=== PATIENT | male | born 1975 | race African-American/Black ===

== ENCOUNTER 2018-08-15 17:32 | Emergency (ER) | payer MEDICAID, OTHER ==
--- NOTE | 2018-08-15 18:15 | UC ---
UC General HPI - HPI Summary HPI Summary: 42 year old male presents with complaints of bilateral lower extremity edema and a wet, non-productive cough for past 5 days. States he has gained almost 20 lbs over since onset. Patient is poor historian and seems to be having some flight of thought. He does reports several hospitalizations in past but only gives a history of pancreatitis. Denies fever, chills, chest pain , palpitations, shortness of breath, abdominal pain, nausea, vomiting, or diaphoresis. - History of Current Complaint Chief Complaint: UCLowerExtremity Stated Complaint: BILATERAL FOOT/KNEE SWELLING Time Seen by Provider: 08/15/18 17:43 Hx Obtained From: Patient Pain Intensity: 6 - Allergy/Home Medications Allergies/Adverse Reactions: Allergies Allergy/AdvReac Type Severity Reaction Status Date / Time aspirin Allergy GI Upset Verified 08/15/18 17:42 NSAIDS (Non-Steroidal Allergy GI Upset Verified 08/15/18 17:42 Anti-Inflamma Home Medications: Home Medications NK [No Home Medications Reported] 08/15/18 [History Confirmed 08/15/18] PMH/Surg Hx/FS Hx/Imm Hx GI/ History: Other - Pancreatitis - Surgical History Surgical History: None - Family History Known Family History: Positive: Unknown - Social History Occupation: Employed Part-time Lives: Alone Alcohol Use: Rare Substance Use Type: None Smoking Status (MU): Former Smoker Review of Systems All Other Systems Reviewed And Are Negative: Yes Constitutional: Negative: Fever, Chills Respiratory: Positive: Cough. Negative: Shortness Of Breath Cardiovascular: Positive: Other - Bilateral lower extremity edema. Negative: Palpitations, Chest Pain Gastrointestinal: Negative: Abdominal Pain, Vomiting, Diarrhea, Nausea Genitourinary: Positive: Negative Musculoskeletal: Negative: Calf Tenderness Neurological: Positive: Negative Is Patient Immunocompromised?: No Physical Exam - Summary Physical Exam Summary: GENERAL APPEARANCE: Well developed, well nourished, alert and cooperative, and appears to be in no acute distress. NECK: Neck supple, non-tender. Bilateral JVD present. CARDIAC: Normal S1 and S2. No S3, S4 or murmurs. Rhythm is regular. Tachycardic. 2+ pitting bilateral lower extremity edema up to the level of the knees. No cyanosis or pallor. Extremities are warm and well perfused. Capillary refill is less than 2 seconds.Peripheral pulses intact. LUNGS: Clear to auscultation without rales, rhonchi, wheezing or diminished breath sounds. Wet, non-productive cough. ABDOMEN: Positive bowel sounds. Soft, nondistended, nontender. No guarding or rebound. No masses or hepatosplenomegally. MUSKULOSKELETAL: ROM intact to all extremities. No joint erythema or tenderness. Normal muscular development. Normal gait. SKIN: Skin normal color, texture and turgor with no lesions or eruptions. Triage Information Reviewed: Yes Vital Signs: Initial Vital Signs Temp 98.9 F 08/15/18 17:38 Pulse 135 08/15/18 17:38 Resp 18 08/15/18 17:38 BP 110/83 08/15/18 17:38 Pulse Ox 100 08/15/18 17:38 Vital Signs Reviewed: Yes Diagnostics - EKG Cardiac Rate: Tachycardia Cardiac Rhythm: Sinus: Normal Ectopy: : PVCs, PACs ST Segment: Normal EKG Comparison: Other - No previous available. Summary of EKG Findings: Sinus tachycardia with probably LVH and nonspecific T- wave changes in Lead I, V5, V6 Course/Dx - Course Course Of Treatment: 42 year old male presents with complaints of bilateral lower extremity edema and a wet, non-productive cough for past 5 days. States he has gained almost 20 lbs over since onset. Patient is poor historian and seems to be having some flight of thought. He does reports several hospitalizations in past but only gives a history of pancreatitis. Denies fever, chills, chest pain, palpitations, shortness of breath, abdominal pain, nausea, vomitng, or diaphoresis. Afebrile. He is tachycardic but vital signs otherwise stable. Exam reveals an adult male in no acute distress. Tachycardic with a normal S1 S2 without extra heart sounds. He has JVD as well as 2+ pitting edema of the lower extremities up to his bilateral knees. 12 lead EKG shows sinus tachycardia with probable LVH and nonspecific T wave changes. No old EKG available for comparison. I am recommending that the patient go to the the emergency room via EMS for further evalatuation. He is agreeable to this and was transferred to [facility] at his request via EMS. - Differential Dx - Multi-Symptom Differential Diagnoses: Other - GA, CHF, LVH - Diagnoses Provider Diagnosis: Bilateral lower extremity edema - Physician Notifications Discussed Patient Care With: Kurt Koenig Time Discussed With Above Provider: 18:25 Instructed by Provider To: MD Will See In ED Discharge - Sign-Out/Discharge Documenting (check all that apply): Patient Departure All imaging exams completed and their final reports reviewed: No Studies - Discharge Plan Condition: Guarded Disposition: TRANS HIGHER LVL OF CARE FAC Referrals: No Primary Care Phys,NOPCP [Primary Care Provider] - - Billing Disposition and Condition Condition: GUARDED Disposition: Trans Higher Lvl of Care Fac
[2018-08-15 18:31] VITALS: BP 112/76
== END 2018-08-15 18:28 | disposition short-term general hospital (02) ==
LOC: UCCORT 17:32
DX: R60.0 Localized edema (principal); R05 Cough; Z88.8 Allergy status to other drugs, medicaments and biological substances; Z87.891 Personal history of nicotine dependence
CPT/HCPCS: 93005; 99203; G0463

== ENCOUNTER 2018-08-15 19:20 | Inpatient (IN) | payer MEDICAID, OTHER ==
--- NOTE | 2018-08-15 20:00 | ED ---
Lower Extremity - HPI Summary HPI Summary: Patient is a 42 y/o M presenting to ED via EMS with complaints of pitting BLE edema and pain over the past week. He denies SOB, chest pain. Patient reports cough for the past three days. He denies PMHx of liver and kidney problems. No psychiatric problems, no alcohol, drug, cigarette usage. 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 Patient notes that he has not gone to doctor in 3 years, he lives alone. On triage, pain is rated 7/10, elevation is noted to alleviate Sx, nothing is noted to aggravate Sx. Home medications and allergies are reviewed. - History of Current Complaint Chief Complaint: EDExtremityLower Stated Complaint: SWELLING Time Seen by Provider: 08/15/18 19:48 Hx Obtained From: Patient Mechanism Of Injury: Other - no injury reported Onset of Pain: Days - 1 week ago, Prior to Arrival Onset/Duration: Weeks - 1 week Severity Currently: Severe - 7/10 Pain Intensity: 7 Pain Scale Used: 0-10 Numeric - 7/10 Timing: Constant, Lasting Weeks - 1 week Location: Is Discrete @ - BLE Associated Signs And Symptoms: Positive: Swelling - BLE Aggravating Factor(s): Other - nothing Alleviating Factor(s): Elevation - Allergies/Home Medications Allergies/Adverse Reactions: Allergies Allergy/AdvReac Type Severity Reaction Status Date / Time aspirin Allergy GI Upset Verified 08/15/18 17:42 NSAIDS (Non-Steroidal Allergy GI Upset Verified 08/15/18 17:42 Anti-Inflamma PMH/Surg Hx/FS Hx/Imm Hx Sensory History: Denies: Hx Legally Blind, Hx Deafness Opthamlomology History: Denies: Hx Legally Blind EENT History: Denies: Hx Deafness Infectious Disease History: No Infectious Disease History: Denies: Traveled Outside the [place] in Last 30 Days - Family History Known Family History: Negative: Hypertension, Diabetes - Social History Alcohol Use: Rare Substance Use Type: Reports: None Smoking Status (MU): Former Smoker Review of Systems Negative: Chest Pain Positive: Cough. Negative: Shortness Of Breath Positive: Edema - BLE , Other - BLE pain All Other Systems Reviewed And Are Negative: Yes Physical Exam - Summary Physical Exam Summary: Appearance: Well appearing, no pain distress Skin: warm, dry, reflects adequate perfusion Head/face: normal Eyes: EOMI, MELLISA ENT: normal Neck: supple, non-tender Respiratory: CTA, breath sounds present Cardiovascular: tachycardic, pulses symmetrical Abdomen: non-tender, soft Musculoskeletal: strength/ROM intact, bilateral pedal edema Neuro: normal, sensory motor intact, A&Ox3 Triage Information Reviewed: Yes Vital Signs On Initial Exam: Initial Vitals Temp Pulse Resp BP Pulse Ox 99.8 F 136 20 118/100 100 08/15/18 19:30 08/15/18 19:30 08/15/18 19:30 08/15/18 19:30 08/15/18 19:30 Vital Signs Reviewed: Yes Diagnostics - Vital Signs Vital Signs Temp Pulse Resp BP Pulse Ox 08/15/18 19:30 99.8 F 136 20 118/100 100 - Laboratory Result Diagrams: 08/15/18 21:00 08/15/18 21:00 Lab Statement: Any lab studies that have been ordered have been reviewed, and results considered in the medical decision making process. Lower Extremity Course/Dx - Course Course Of Treatment: Patient is a 42 y/o M presenting to ED via EMS with complaints of pitting BLE edema and pain over the past week. He denies SOB, chest pain. Patient reports cough for the past three days. He denies PMHx of liver and kidney problems. No psychiatric problems, no alcohol, drug, cigarette usage. On physical exam, tachycardia, bilateral pedeal edema is noted. Bloodwork was obtained. D-dimer 327, CTA chest to be ordered. Patient is signed out to Dr. Alicea pending CTA chest. - Diagnoses Provider Diagnoses: Dyspnea, Tachycardia Discharge - Sign-Out/Discharge Documenting (check all that apply): Sign-Out Patient Signing out patient TO: Jagdeep Alicea Receiving patient FROM: Jeff Carrasco - Discharge Plan Referrals: No Primary Care Phys,NOPCP [Primary Care Provider] - - Attestation Statements Document Initiated by Scribe: Yes Documenting Scribe: EVARISTO SANTAMARIA Provider For Whom Marge is Documenting (Include Credential): JEFF CRARASCO MD Scribe Attestation: EVARISTO Clark , scribed for JEFF CARRASCO MD on 08/15/18 at 2142. Scribe Documentation Reviewed: Yes Provider Attestation: The documentation as recorded by the EVARISTO chavez accurately reflects the service I personally performed and the decisions made by me, JEFF CARRASCO MD Status of Scribe Document: Viewed
[2018-08-15 21:11] LABS: ABS Basophils 0 10^3/ul (0-0.2); ABS Eosinophils 0 10^3/ul (0-0.6); ABS Lymphocytes 0.6 10^3/ul (1.0-4.8); ABS Monocytes 0.3 10^3/ul (0-0.8); ABS Neutrophils 2.2 10^3/ul (1.5-7.7); ABS Nucleated RBC 0 10^3/ul; Eosinophil % 0.7 %; Hematocrit 37 % (42-52); Lymphocyte % 20.3 %; Mean Corpuscular HGB Conc 33 g/dl (31-36); Mean Corpuscular Hemoglobin 27 pg (27-31); Mean Corpuscular Volume 83 fL (80-94); Mean Platelet Volume 7.7 fL (7.4-10.4); Nucleated Red Blood Cells % 0.1; Platelet Count 223 10^3/ul (150-450); Red Blood Count 4.41 10^6/ul (4.00-5.40); Red Cell Distribution Width 15 % (10.5-15); White Blood Count 3.2 10^3/ul (3.5-10.8)
[2018-08-15 21:22] LABS: Activated Partial Thrombo Time 33.2 seconds (26.0-36.3); INR 1.47 (0.77-1.02)
[2018-08-15 21:28] LABS: Albumin 3.7 g/dL (3.2-5.2); Albumin/Globulin Ratio 1.4 (1-3); BUN/Creatinine Ratio 13.6 (8-20); Calcium 8.8 mg/dL (8.6-10.3); EGFR African American 114.9 (>60); Globulin 2.7 g/dL (2-4); Potassium 3.9 mmol/L (3.5-5.0); Total Bilirubin 2.7 mg/dL (0.2-1.0); Total Protein 6.4 g/dL (6.4-8.9)
[2018-08-15 21:29] LABS: Troponin I 0.02 ng/mL (<0.04)
[2018-08-15] MEDS ORDERED: Furosemide IV* 10 MG/ML VIAL (40 MG) IV ONE (21:40)
[2018-08-15 21:57] LABS: TSH (Thyroid Stimulating Horm) 3.77 mcIU/mL (0.34-5.60)
[2018-08-15] MEDS ORDERED: Iohexol 350* (CONTRAST) 500 ML MDV IV ONE (22:35)
--- NOTE | 2018-08-15 22:41 | ED ---
Progress - Progress Note Progress Note: This patient was signed out from Dr. Koenig to Dr. Alicea, pending dispo, awaiting CTA chest. CTA Chest/Thorax: . No pulmonary emboli. 2. Dilated main pulmonary artery trunk measuring up to 3.3 cm in transverse diameter which may be due to pulmonary artery hypertension. 3. Marked cardiomegaly with evidence of right cardiac dysfunction. 4. Mild to moderate right pleural effusion with compressive atelectasis. 5. Multiple centrilobular nodules in the superior segment of the right lower lobe which may be due to infectious etiology. Upon re-eval at 0249, the patient's condition was unchanged. Consulted Dr. Claros at 0254 about the patient's case and accepts the patient for admission. The patient will be admitted to Dr. Cedeno with a dx of pulmonary hypertension. Patient understands and is agreeable with this plan. Course/Dx - Course Course Of Treatment: Patient is a 42 y/o M presenting to ED via EMS with complaints of pitting BLE edema and pain over the past week. He denies SOB, chest pain. Patient reports cough for the past three days. He denies PMHx of liver and kidney problems. No psychiatric problems, no alcohol, drug, cigarette usage. On physical exam, tachycardia, bilateral pedeal edema is noted. Bloodwork was obtained. D-dimer 327, CTA chest to be ordered. Patient is signed out to Dr. Alicea pending CTA chest. - Diagnoses Provider Diagnoses: Pulmonary hypertension Discharge - Sign-Out/Discharge Documenting (check all that apply): Patient Departure - admit - Discharge Plan Condition: Stable Disposition: ADMITTED TO [facility] - Billing Disposition and Condition Condition: STABLE Disposition: Admitted to [facility] - Attestation Statements Document Initiated by Marge: Yes Documenting Scribe: Ethan Cote Provider For Whom Marge is Documenting (Include Credential): Jagdeep Alicea MD Scribe Attestation: Ethan Clark, scribed for Jagdeep Alicea MD on 08/16/18 at 0642. Scribe Documentation Reviewed: Yes Provider Attestation: The documentation as recorded by the Ethan chavez accurately reflects the service I personally performed and the decisions made by me, Jagdeep Alicea MD Status of Scribe Document: Viewed
[2018-08-16] MEDS ORDERED: Al Hydrox/Mg Hydrox/Simet LIQ* 30 ML UDC PO PRN (03:35)
[2018-08-16] MEDS ORDERED: Acetaminophen TAB* 325 MG PO PRN (03:35)
[2018-08-16] MEDS ORDERED: Ondansetron INJ* 2 MG/ML VIAL IV PRN (03:35)
[2018-08-16 05:49] LABS: ABS Basophils 0 10^3/ul (0-0.2); ABS Eosinophils 0 10^3/ul (0-0.6); ABS Lymphocytes 0.6 10^3/ul (1.0-4.8); ABS Monocytes 0.4 10^3/ul (0-0.8); ABS Neutrophils 2.5 10^3/ul (1.5-7.7); ABS Nucleated RBC 0 10^3/ul; Eosinophil % 0.2 %; Hematocrit 33 % (42-52); Hemoglobin 11.2 g/dl (14.0-18.0); Lymphocyte % 17.7 %; Mean Corpuscular HGB Conc 34 g/dl (31-36); Mean Corpuscular Hemoglobin 28 pg (27-31); Mean Corpuscular Volume 82 fL (80-94); Mean Platelet Volume 7.6 fL (7.4-10.4); Nucleated Red Blood Cells % 0.1; Platelet Count 205 10^3/ul (150-450); Red Blood Count 4.01 10^6/ul (4.00-5.40); Red Cell Distribution Width 16 % (10.5-15); White Blood Count 3.5 10^3/ul (3.5-10.8)
[2018-08-16] MEDS ORDERED: Benzonatate CAP* 100 MG PO PRN (05:51)
[2018-08-16 05:53] LABS: INR 1.56 (0.77-1.02)
[2018-08-16 06:09] LABS: Albumin 3.2 g/dL (3.2-5.2); Albumin/Globulin Ratio 1.3 (1-3); BUN/Creatinine Ratio 11.3 (8-20); C Reactive Protein 10.76 mg/L (<8.01); Calcium 8.7 mg/dL (8.6-10.3); EGFR African American 102.7 (>60); EGFR Non-African American 84.9 (>60); Globulin 2.5 g/dL (2-4); HDL Cholesterol 27.1 mg/dL; Magnesium 1.6 mg/dL (1.9-2.7); Potassium 3.7 mmol/L (3.5-5.0); Total Bilirubin 2.7 mg/dL (0.2-1.0); Total Protein 5.7 g/dL (6.4-8.9)
[2018-08-16] MEDS: Furosemide IV* 10 MG/ML VIAL (40 MG) IV SCH (08:00)
--- NOTE | 2018-08-16 09:58 | ECHO ---
Patient: TYRONE CHAUDHARY [facility] Rec#: [id number] : 1975 Date: 08/16/2018 Age: 42y Height: 180 cm / 70.9 in Weight: 79.4 kg / 175.0 lbs Sex: M BSA: 1.99 Room#: 434 Admit Date#: 08/16/2018 Type: Inpatient Referring: Rae Cedeno Reading: Boris Robledo MD Log Processor Operator: Alondra Mccollum RD Transthoracic Echocardiogram Indication: Congestive heart failure BP: 122/68 HR: 127 Rhythm: Tachycardia Findings History: Pulmonary hypertension. Technical Comments: The study quality is good. Completed at 0905. Left Ventricle: The left ventricular size is moderate to severely dilated. There is no left ventricular hypertrophy. Increased trabeculation of the LV myocardium There is diffuse global hypokinesis of the left ventricle. There is severely decreased left ventricular systolic function. The estimated ejection fraction is less than 20%. Abnormal left ventricular diastolic function is observed. Left Atrium: The left atrium is severely dilated. Right Ventricle: Moderator Band present. The right ventricle is moderately dilated. The right ventricular global systolic function is moderately reduced. Right Atrium: The right atrial cavity size is severely dilated. Aortic Valve: The aortic valve is trileaflet. There is no evidence of aortic valve thickening. There is a trace of aortic regurgitation. There is no evidence of aortic stenosis. Mitral Valve: The mitral valve leaflets are mildly thickened. There is moderate to severe mitral regurgitation. The mitral regurgitant jet is centrally directed. There is no evidence of mitral stenosis. Tricuspid Valve: The tricuspid valve leaflets are mildly thickened. There is moderate to severe tricuspid regurgitation. The right ventricular systolic pressure is estimated at 51 mmHg. There is evidence of moderate pulmonary hypertension. There is no tricuspid stenosis. Pulmonic Valve: The pulmonic valve appears normal. There is trace to mild pulmonic regurgitation. There is no pulmonic stenosis. Pericardium: A trivial pericardial effusion is visualized. Aorta: There is mild dilatation of the ascending aorta. There is no dilatation of the aortic arch. There is moderate dilatation of the aortic root. Pulmonary Artery: The main pulmonary artery appears normal. Venous: The inferior vena cava is dilated. There is less than 50% respiratory change in the inferior vena cava dimension. Summary: There was not any prior study for comparison. Conclusions There is no left ventricular hypertrophy. There is diffuse global hypokinesis of the left ventricle. There is severely decreased left ventricular systolic function. The estimated ejection fraction is less than 20%. The right ventricular global systolic function is moderately reduced. There is a trace of aortic regurgitation. There is moderate to severe mitral regurgitation. The mitral regurgitant jet is centrally directed. There is moderate to severe tricuspid regurgitation. The right ventricular systolic pressure is estimated at 51 mmHg. There is evidence of moderate pulmonary hypertension. A trivial pericardial effusion is visualized. report called to Dr Dunne Measurements Name Value Normal Range RVIDd (AP) 2D 3.9 cm (0.9 - 2.6) RVDdMajor (2D) 5.3 cm (2.2 - 4.4) RAd ISD 4CH 6.8 cm (3.4 - 4.9) RA (A4C)W 6.7 cm (2.9 - 4.6) IVSd (2D) 0.8 cm (0.6 - 1) LVPWd (2D) 0.8 cm (0.6 - 1) LVIDd (2D) 6.9 cm (3.6 - 5.4) LVIDs (2D) 6.1 cm - LV FS (2D) 11 % (25 - 45) Aortic Annulus 2 cm (1.4 - 2.6) Ao root diameter (2D) 4.3 cm (2.1 - 3.5) Ascending Ao 3.5 cm (2.1 - 3.4) Aortic arch 2.2 cm (1.8 - 3.4) LA dimension (AP) 2D 5.7 cm (2.3 - 3.8) LAd ISD 4CH 7.9 cm (2.9 - 5.3) LA ISD 4CH W 5.8 cm (2.5 - 4.5) Name Value Normal Range LA ESV BP (A/L) index 89 ml/m2 - Name Value Normal Range MV E-wave Vmax 0.9 m/sec - MV deceleration time 121 msec - MV A-wave Vmax 0.6 m/sec - MV E:A ratio 1.5 ratio - LV septal e' Vmax 0.05 m/sec - LV lateral e' Vmax 0.08 m/sec - LV E:e' septal ratio 18 ratio - LV E:e' lateral ratio 11.3 ratio - Name Value Normal Range AV Vmax 0.7 m/sec - AV VTI 9.5 cm - AV peak gradient 2 mmHg - AV mean gradient 1 mmHg - LVOT Vmax 0.6 m/sec - LVOT VTI 8.3 cm - LVOT peak gradient 2 mmHg - LVOT mean gradient 1 mmHg - COURTNEY Vmax 0.6 m/sec - Name Value Normal Range MR Vmax 4.5 m/sec - MR VTI 102 cm - MR flow (PISA) 118.6 ml/sec - MR ERO 0.26 cm2 - MR PISA radius 0.7 cm - MR alias Vmax 38.5 cm/sec - Name Value Normal Range TR Vmax 3 m/sec - TR peak gradient 36 mmHg - RAP 15 mmHg - RVSP 51 mmHg - IVC diameter 2.5 cm - Name Value Normal Range PV Vmax 0.6 m/sec - PV peak gradient 1 mmHg -
--- NOTE | 2018-08-16 10:04 | HP ---
HISTORY AND PHYSICAL: DATE OF ADMISSION: 08/16/18 TIME OF EVALUATION: 0300 PRIMARY CARE PHYSICIAN: The patient does not have a primary care physician. CHIEF COMPLAINT.: Lower extremity edema. HISTORY OF PRESENT ILLNESS: This is a 42-year-old male with an unremarkable past medical history, who initially presented to Urgent Care yesterday evening for bilateral lower extremity swelling, who was sent to the emergency room for concern for new onset congestive heart failure. The patient states he developed acute onset of lower extremity swelling a few days ago. He states he normally weighs 130 pounds. He took a nap after workup and woke up, was unable to get his shoes off and had significant lower extremity swelling bilaterally and had gained 20 pounds. He has noticed initially a dry cough over the past 2 to 3 days, now has become productive. He does have dyspnea on exertion. He becomes winded up and down the stairs and he has had some chest pain with coughing and congestion. No fevers at home. He has been nauseated. No vomiting or diarrhea. He states 4 years ago he had a significant episode of pancreatitis at [facility], where he was admitted. He denies any vomiting. No diarrhea. No abdominal pain. No fevers. No urinary symptoms. Otherwise review of systems is negative. As mentioned, the patient was referred from Urgent Care to dc. In the emergency room, the patient had labs and imaging. He was given 40 mg of Lasix and referred to the hospitalist service for further evaluation. PAST MEDICAL HISTORY: History of pancreatitis, requiring admission at [facility]. MEDICATIONS: None. No prescription, [id number]. ALLERGIES: Aspirin and NSAIDs cause intolerance with GI upset. FAMILY HISTORY: Unknown. 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 Very active and also working for [employer]. Normally works out routinely, has not lifted weights over the past 2 months. He quit smoking cigars and cigarettes in January 2018. At that time, he was smoking for about 3 years. His last drink was about 2 months ago. He was never a heavy drinker. No illicit drug use. REVIEW OF SYSTEMS: A 14-point review of systems as mentioned in the HPI, otherwise negative. PHYSICAL EXAMINATION GENERAL: No acute distress, resting comfortably, lying flat on the gurney. VITAL SIGNS: Temp is 99.8, pulse rate is 127, respiratory rate is 25, oxygen saturation is 100% on room air, blood pressure 112/80. HEENT: Head normocephalic. Pupils equal and reactive, anicteric. Oropharynx: Mucous membranes are moist. NECK: Supple. No lymphadenopathy. No nuchal rigidity. RESPIRATORY: Diminished breath sounds, bibasilar rales. No increased work of breathing. CARDIAC: Tachycardia, soft systolic murmur heard throughout. ABDOMEN: Soft, mild distention. No tenderness, round, or guarding. EXTREMITIES: +2 pitting edema of the lower extremities bilaterally. NEUROLOGIC: Alert and oriented x3. No gross focal neurologic deficits. LABORATORY DATA: White count 3.2, hemoglobin 12, hematocrit 37, platelets 223. INR is 1.47. D-dimer is 327. Sodium 133, potassium 3.9, chloride 102, bicarb 23. BUN 12, creatinine 0.88. Glucose 105. Bilirubin is 2.7. Troponin is 0.02 x2. BNP is greater than 1300. TSH is 3.77. RADIOGRAPHIC DATA: Chest CTA: No pulmonary emboli, dilated main pulmonary artery. Trunk measuring up to 3.3 cm in transverse diameter which may be due to pulmonary artery hypertension. Marked cardiomegaly with evidence of right cardiac dysfunction, mild to moderate right pleural effusion with compressive atelectasis, multiple centrilobular nodules in the superior segment of the right lower lobe, which may be due to infectious etiology. EKG: Sinus tachycardia with a rate of 132. EKG from Urgent Care shows nonspecific ST changes. ASSESSMENT: This is a 42-year-old male with an unremarkable past medical history, who presents to the emergency room with 20-pound weight gain, lower extremity edema, and dyspnea on exertion. 1. Lower extremity edema with dyspnea on exertion and CAT scan findings concerning for pulmonary artery hypertension and right heart failure. The patient's presentation is consistent with acute onset of decompensated heart failure. The etiology is unclear. It could be that he has underlying pulmonary artery hypertension. There were also centrilobular nodules that may be unrelated to his presentation. His INR and bilirubin are elevated, which is most likely from hepatic congestion from his right heart failure. Plan: We will admit him for observation for workup for this presentation. We will order an echocardiogram. He would likely benefit from a right and left heart cath. We will recommend followup with cardiology consultation once the echocardiogram is complete. We will repeat his labs in the morning, give another dose of Lasix in the morning. We will also request records from [facility] from his episode of pancreatitis to see if this is anything revealing as non-cardiogenic pulmonary edema can be related to pancreatitis; it may be worthwhile pursuing this etiology as well if no other obvious cause is contributing to his presentation. 2. FEN. Low-salt diet. 3. Deep venous thrombosis prophylaxis: Patient scores 1. We will encourage ambulation. 4. Code status: Full code. PATIENT TIME: Greater than 40 minutes was spent doing the history and physical , more than half the time spent in direct patient contact. [id number]/[facility] #: [id number] SHIELA
[2018-08-16] MEDS ORDERED: Magnesium Sulfate IV* 3 GM in NS 0.9% 100 ML* 100 ML IVPB ONE (11:05)
--- NOTE | 2018-08-16 11:30 | CONSULT ---
<Vianney Cain - Last Filed: 08/16/18 11:22> Subjective Date of Service: 08/16/18 - decompensated SHF, MR Interval History: I had the pleasure seeing Mr. Thurston today in consultation on behalf of Dr. Robledo. He is a pleasant 42 year old patient with known h/o severe LV dysfunction dating back to 2016. I personally reviewed medical records from that time he had presented to [facility] with c/o chest pain, coughing , sore throat and sob with minimal troponin elevation. He had a 102 degree fever and was found to have LVEF 20% ID and cardiology( Dr. Gonzalez) evaluated the patient and ultimately felt that he was suffering from myocarditis ( CK was 331 and CRP was 15.1) ID had ordered HIV testing however those results are not available to me. He was tachycardic due that admit as well as recently on 07/27/2018 however, he reports not being on medication and has not had longitudinal follow up with cardiology or primary care. Apparently on 07/27/2018 he was in [place] due to nausea and abdominal pain. EKG 07/27/2018 revealed Sinus tachycardia HR 120's he was sent home. Since last Wednesday he has been having progressive SOB, bilateral lower extremity edema, reported 20lbs weight gain and non productive cough with atypical chest pain. He denies dizziness, syncope, palpitations, orthopnea, PND, or syncope. He recently was hired at [employer] and just started work 2 days ago which is seasonal. 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 He denies recent infection, diarrhea , traveling outside of country or fever/chills. Family History: Unchanged from Admission - unknown states his parents are not active in his life. Social History: Unchanged from Admission - former cigar user states he consumed 3/week wuit January 2018. Drinks ETOH socially while playing pool. currently employed at [employer]. Denies illegal drug use. 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 He lives home alone and has no family. 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 Medications Active Medications: Acetaminophen (Tylenol Tab*) 650 mg PO Q4H PRN PRN Reason: FEVER/PAIN Al Hydrox/Mg Hydrox/Simethicone (Maalox Plus*) 30 ml PO Q6H PRN PRN Reason: INDIGESTION Benzonatate (Tessalon Cap*) 100 mg PO BID PRN PRN Reason: COUGH Last Admin: 08/16/18 07:59 Dose: 100 mg Carvedilol (Coreg Tab*) 3.125 mg PO BID NORY Furosemide (Lasix Iv*) 40 mg IV DAILY NORY Last Admin: 08/16/18 08:00 Dose: 40 mg Magnesium Sulfate 3 gm/ Sodium (Chloride) 106 mls @ 53 mls/hr IVPB ONCE ONE Stop: 08/16/18 13:04 Home Medications: NK [No Home Medications Reported] 08/15/18 [History Confirmed 08/16/18] Review of Systems - Measurements Intake and Output: Intake and Output Last 24 Hours 08/14/18 08/15/18 08/16/18 08/17/18 06:59 06:59 06:59 06:59 Intake Total 60 Output Total 200 Balance -140 Weight 171 lb Intake: Oral 60 Output: Urine 200 - Review of Systems Constitutional Symptoms: Positive: Weight Gain, Fatigue Thyroid: Positive: Weight Gain Pulmonary: Positive: Cough, Shortness of Breath Cardiology: Positive: Chest Pain, Shortness of Breath, Swelling of Ankles Gastroenterology: Positive: Nausea Genital - Urinary: Positive: Polyuria Review of Systems Statement: All other review of systems negative, unless stated above. Objective Vital Signs: Temp Pulse Resp BP Pulse Ox 99.4 F 124 20 105/72 100 08/16/18 07:46 08/16/18 07:46 08/16/18 07:46 08/16/18 07:46 08/16/18 07:46 Oxygen Devices in Use Now: None Appearance: well nourished, well kept. NAD A+O x3 cooperative with exam. Eyes: PERRLA - + jaundice noted in sclera. Ears/Nose/Mouth/Throat: NL Teeth, Lips, Gums, Mucous Membranes Moist Neck: NL Appearance and Movements; NL JVP, Trachea Midline, No Thyroid Enlargement, Masses Respiratory: Symmetrical Chest Expansion and Respiratory Effort Cardiovascular: - - Tachy S1, S2 regular rate and rhythm, + mitral murmur.+ gallop no rub Abdominal: NL Sounds; No Tenderness; No Distention, No Hepatosplenomegaly Extremities: - - pretibial edema noted in bilateral lower extremities. Skin: No Rash or Ulcers Neurological: Alert and Oriented x 3 Lines/Tubes/Other Access: Clean, Dry and Intact Peripheral IV Laboratory Results: 08/16/18 05:19 08/16/18 05:19 INR (Anticoag Therapy) 1.56 (0.77-1.02) H 08/16/18 05:19 APTT 33.2 seconds (26.0-36.3) 08/15/18 21:00 Total Bilirubin 2.70 mg/dL (0.2-1.0) H 08/16/18 05:19 AST 27 U/L (13-39) 08/16/18 05:19 ALT 21 U/L (7-52) 08/16/18 05:19 Alkaline Phosphatase 92 U/L (34-104) 08/16/18 05:19 B-Natriuretic Peptide > 1300 pg/mL (<=100) H 08/15/18 21:00 Total Protein 5.7 g/dL (6.4-8.9) L 08/16/18 05:19 Albumin 3.2 g/dL (3.2-5.2) 08/16/18 05:19 Globulin 2.5 g/dL (2-4) 08/16/18 05:19 Albumin/Globulin Ratio 1.3 (1-3) 08/16/18 05:19 Triglycerides 57 mg/dL 08/16/18 05:19 Cholesterol 81 mg/dL 08/16/18 05:19 LDL Cholesterol 43 mg/dL 08/16/18 05:19 HDL Cholesterol 27.1 mg/dL 08/16/18 05:19 TSH 3.77 mcIU/mL (0.34-5.60) 08/15/18 21:00 08/15/18 08/16/18 21:00 00:19 Troponin I 0.02 0.02 Laboratory Results - last 24 hr 08/15/18 08/15/18 08/15/18 21:00 21:00 21:00 WBC 3.2 L RBC 4.41 Hgb 12.0 L Hct 37 L MCV 83 MCH 27 MCHC 33 RDW 15 Plt Count 223 MPV 7.7 Neut % (Auto) 68.8 Lymph % (Auto) 20.3 [place] % (Auto) 9.6 Eos % (Auto) 0.7 Baso % (Auto) 0.6 Absolute Neuts (auto) 2.2 Absolute Lymphs (auto) 0.6 L Absolute Monos (auto) 0.3 Absolute Eos (auto) 0 Absolute Basos (auto) 0 Absolute Nucleated RBC 0 Nucleated RBC % 0.1 INR (Anticoag Therapy) APTT D-Dimer, Quantitative Sodium 133 L Potassium 3.9 Chloride 102 Carbon Dioxide 23 Anion Gap 8 BUN 12 Creatinine 0.88 Est GFR ( Amer) 114.9 Est GFR (Non-Af Amer) 95.0 BUN/Creatinine Ratio 13.6 Glucose 105 H Lactic Acid 1.8 Calcium 8.8 Magnesium Total Bilirubin 2.70 H AST 31 ALT 24 Alkaline Phosphatase 102 Troponin I 0.02 C-Reactive Protein B-Natriuretic Peptide Total Protein 6.4 Albumin 3.7 Globulin 2.7 Albumin/Globulin Ratio 1.4 Triglycerides Cholesterol LDL Cholesterol HDL Cholesterol TSH 3.77 08/15/18 08/15/18 08/16/18 21:00 21:00 00:19 WBC RBC Hgb Hct MCV MCH MCHC RDW Plt Count MPV Neut % (Auto) Lymph % (Auto) [place] % (Auto) Eos % (Auto) Baso % (Auto) Absolute Neuts (auto) Absolute Lymphs (auto) Absolute Monos (auto) Absolute Eos (auto) Absolute Basos (auto) Absolute Nucleated RBC Nucleated RBC % INR (Anticoag Therapy) 1.47 H APTT 33.2 D-Dimer, Quantitative 327 H Sodium Potassium Chloride Carbon Dioxide Anion Gap BUN Creatinine Est GFR ( Amer) Est GFR (Non-Af Amer) BUN/Creatinine Ratio Glucose Lactic Acid Calcium Magnesium Total Bilirubin AST ALT Alkaline Phosphatase Troponin I 0.02 C-Reactive Protein B-Natriuretic Peptide > 1300 H Total Protein Albumin Globulin Albumin/Globulin Ratio Triglycerides Cholesterol LDL Cholesterol HDL Cholesterol TSH 08/16/18 08/16/18 08/16/18 05:19 05:19 05:19 WBC 3.5 RBC 4.01 Hgb 11.2 L Hct 33 L MCV 82 MCH 28 MCHC 34 RDW 16 H Plt Count 205 MPV 7.6 Neut % (Auto) 69.6 Lymph % (Auto) 17.7 [place] % (Auto) 11.9 Eos % (Auto) 0.2 Baso % (Auto) 0.6 Absolute Neuts (auto) 2.5 Absolute Lymphs (auto) 0.6 L Absolute Monos (auto) 0.4 Absolute Eos (auto) 0 Absolute Basos (auto) 0 Absolute Nucleated RBC 0 Nucleated RBC % 0.1 INR (Anticoag Therapy) 1.56 H APTT D-Dimer, Quantitative Sodium 134 L Potassium 3.7 Chloride 103 Carbon Dioxide 23 Anion Gap 8 BUN 11 Creatinine 0.97 Est GFR ( Amer) 102.7 Est GFR (Non-Af Amer) 84.9 BUN/Creatinine Ratio 11.3 Glucose 118 H Lactic Acid Calcium 8.7 Magnesium 1.6 L Total Bilirubin 2.70 H AST 27 ALT 21 Alkaline Phosphatase 92 Troponin I C-Reactive Protein 10.76 H B-Natriuretic Peptide Total Protein 5.7 L Albumin 3.2 Globulin 2.5 Albumin/Globulin Ratio 1.3 Triglycerides 57 Cholesterol 81 LDL Cholesterol 43 HDL Cholesterol 27.1 TSH Diagnostic Imaging: Echo 08/15/2018; LVEF 20% with moderate to severe LV dilatation and increase trabeculation. severe biatrial dilatation, moderate to severe [place], AO 4.6cm. EKG Data: todays EKG; Sinus tachycardia rate 126 with tw depression in V5-6 Assessment/Plan #1 Decompensated SHF LVEF 20%; NYHA class 3 stage C. initially diagnosed in 2016 thought to be myocarditis however ck was only 331. He was started on HF medications however he has not had cardiac follow up and is no longer on medications. He presented with 5 day h/o 20lb weight gain, bilateral lower extremity edema and sob. Will continue Lasix 40mg IV daily, RX IV mag 3g once given mag level is 1.6. Will start Coreg 3.125mg PO BID. TFTs are normal, Troponin is normal thus will not order CK. Will r/o hemochromatosis. He has presented with sinus tachycardia every admit dating back to 2016 thus could be a compensatory mechanism given severe LV dysfuction however, LVEF did improve per Dr. Holcomb note in 2016 after HR was controlled. Will ask hospitalist to r/o HIV. Will consider ischemic eval tomorrow. Continue Na+ and fluid restriction with daily weights and daily BMP. Will order lifevest. #2 moderate to severe MR; decompensated on exam will continue IV lasix 40/day. No ACEI right now due to BP however will consider initiation of ACEI in the future if BP allows. #3 hypomagnesium; will replace with 3g IV x1 #4 Sinus tachycardia; will start coreg 3.125mg PO BID. This could be a compensatory mechanism due to above #1 however, patient needs better rate control which could improve LVEF. #5 disposition pending course. Attending: Boris Robledo <Boris Robledo - Last Filed: 08/16/18 18:05> Medications Active Medications: Acetaminophen (Tylenol Tab*) 650 mg PO Q4H PRN PRN Reason: FEVER/PAIN Al Hydrox/Mg Hydrox/Simethicone (Maalox Plus*) 30 ml PO Q6H PRN PRN Reason: INDIGESTION Benzonatate (Tessalon Cap*) 100 mg PO BID PRN PRN Reason: COUGH Last Admin: 08/16/18 07:59 Dose: 100 mg Carvedilol (Coreg Tab*) 3.125 mg PO BID [facility] Last Admin: 08/16/18 12:18 Dose: 3.125 mg Furosemide (Lasix Iv*) 40 mg IV DAILY [facility] Last Admin: 08/16/18 08:00 Dose: 40 mg Heparin Sodium (Porcine) (Heparin Vial(*)) 5,000 units SUBCUT Q8HR [facility] Home Medications: NK [No Home Medications Reported] 08/15/18 [History Confirmed 08/16/18] Review of Systems - Measurements Intake and Output: Intake and Output Last 24 Hours 08/14/18 08/15/18 08/16/18 08/17/18 06:59 06:59 06:59 06:59 Intake Total 60 1570 Output Total 200 Balance -140 1570 Weight 171 lb Intake: IV Fluids 15 Mag 3 grams 15 IVPB 115 Mag 3 grams 115 Oral 60 1440 Output: Urine 200 - Review of Systems Review of Systems Statement: All other review of systems negative, unless stated above. Objective Vital Signs: Temp Pulse Resp BP Pulse Ox 97.4 F 131 20 92/68 100 08/16/18 15:26 08/16/18 16:00 08/16/18 16:00 08/16/18 16:00 08/16/18 16:00 Laboratory Results: 08/16/18 05:19 08/16/18 05:19 INR (Anticoag Therapy) 1.56 (0.77-1.02) H 08/16/18 05:19 APTT 33.2 seconds (26.0-36.3) 08/15/18 21:00 Total Bilirubin 2.70 mg/dL (0.2-1.0) H 08/16/18 05:19 AST 27 U/L (13-39) 08/16/18 05:19 ALT 21 U/L (7-52) 08/16/18 05:19 Alkaline Phosphatase 92 U/L (34-104) 08/16/18 05:19 B-Natriuretic Peptide > 1300 pg/mL (<=100) H 08/15/18 21:00 Total Protein 5.7 g/dL (6.4-8.9) L 08/16/18 05:19 Albumin 3.2 g/dL (3.2-5.2) 08/16/18 05:19 Globulin 2.5 g/dL (2-4) 08/16/18 05:19 Albumin/Globulin Ratio 1.3 (1-3) 08/16/18 05:19 Triglycerides 57 mg/dL 08/16/18 05:19 Cholesterol 81 mg/dL 08/16/18 05:19 LDL Cholesterol 43 mg/dL 08/16/18 05:19 HDL Cholesterol 27.1 mg/dL 08/16/18 05:19 TSH 3.77 mcIU/mL (0.34-5.60) 08/15/18 21:00 08/15/18 08/16/18 21:00 00:19 Troponin I 0.02 0.02 Assessment/Plan Patient seen and examined. Chart reviewed Patient with history cardiomyopathy of unclear etiology. plan is for maximal medical therapy, Evaluate for hemochromatosis and HIV Possible ischemic evaluation
[2018-08-16 11:50] LABS: Ferritin 51.1 ng/mL (24-336)
--- NOTE | 2018-08-16 11:52 | PN ---
Subjective Date of Service: 08/16/18 Interval History: HOSPITALIST PROGRESS NOTE Patient seen and examined at bedside. Care reviewed and d/w Haley Richards RN. He states he's feeling better today. LE edema is going down, dyspnea is less intense, but "I'm peeing a lot". Family History: Unchanged from Admission Social History: Unchanged from Admission Past Medical History: Unchanged from Admission Objective Active Medications: Acetaminophen (Tylenol Tab*) 650 mg PO Q4H PRN PRN Reason: FEVER/PAIN Al Hydrox/Mg Hydrox/Simethicone (Maalox Plus*) 30 ml PO Q6H PRN PRN Reason: INDIGESTION Benzonatate (Tessalon Cap*) 100 mg PO BID PRN PRN Reason: COUGH Last Admin: 08/16/18 07:59 Dose: 100 mg Carvedilol (Coreg Tab*) 3.125 mg PO BID NORY Furosemide (Lasix Iv*) 40 mg IV DAILY NORY Last Admin: 08/16/18 08:00 Dose: 40 mg Magnesium Sulfate 3 gm/ Sodium (Chloride) 106 mls @ 53 mls/hr IVPB ONCE ONE Stop: 08/16/18 13:04 Vital Signs - 8 hr 08/16/18 08/16/18 08/16/18 04:14 04:37 07:46 Temperature 99.5 F 98.1 F 99.4 F Pulse Rate 133 129 124 Respiratory 18 26 20 Rate Blood Pressure 113/76 122/68 105/72 (mmHg) O2 Sat by Pulse 100 97 100 Oximetry Oxygen Devices in Use Now: None Appearance: Young gentleman sitting up in bed in NAD. Eyes: No Scleral Icterus Ears/Nose/Mouth/Throat: Mucous Membranes Moist Neck: Trachea Midline Respiratory: Symmetrical Chest Expansion and Respiratory Effort, - - BS+ bilaterally with bibasilar crackles Cardiovascular: RRR - Normal S1 and S2, tachycardic Abdominal: NL Sounds; No Tenderness; No Distention Extremities: - - Severe bilateral LE pitting edema Neurological: Alert and Oriented x 3, NL Muscle Strength and Tone Result Diagrams: 08/16/18 05:19 08/16/18 05:19 Assess/Plan/Problems-Billing Assessment: Mr Thurston is a 42yo M with PMH of pancreatitis, who presented to ED with c/o dyspnea and LE edema, found to have new onset CHF. - Patient Problems (1) CHF (congestive heart failure) Comment: - Patient has new onset CHF, with signs of Pulm HTN and RV failure. - Awaiting echo. - Continue diuresis. - Cradiology consult requested. (2) Increased bilirubin level Comment: - Likely secondary to congestive hepatopathy. (3) DVT prophylaxis Comment: - SQ heparin. (4) Full code status Status and Disposition: Change to inpatient to continue cardiac w/u and management.
[2018-08-16] MEDS: Carvedilol TAB* 3.125 MG PO SCH ×2 (12:18→22:57)
[2018-08-16] MEDS ORDERED: Metoprolol Tartrate IV* 1 MG/ML 5 ML VIAL IV PRN (22:13)
[2018-08-16] MEDS: Heparin VIAL(*) 5000 UNITS/ML VIAL (FIVE THOUSAND) SUBCUT SCH (22:57)
--- NOTE | 2018-08-16 23:01 | PN ---
Progress Note - Progress Note Date of Service: 08/16/18 Note: Patient refusing Coreg and IV lopressor. Per RN appears paranoid. Stating he is leaving tomorrow. Consider psych/mental health evaluation. Capacity evaluation as well.
[2018-08-17] MEDS: Heparin VIAL(*) 5000 UNITS/ML VIAL (FIVE THOUSAND) SUBCUT SCH ×3 (05:46→23:15)
[2018-08-17 06:28] LABS: BUN/Creatinine Ratio 16.2 (8-20); Calcium 8.8 mg/dL (8.6-10.3); EGFR African American 100.3 (>60); EGFR Non-African American 82.9 (>60); Potassium 4.1 mmol/L (3.5-5.0)
--- NOTE | 2018-08-17 08:19 | PN ---
Hospitalist Progress Note Date of Service: 08/17/18 Called by RN because patient wants to leave AMA. Evaluated at bedside with Jamie Thompson RN. He states he feels dehydrated and has refused multiple medications because he doesn't like the way they make him feel. Took just one dose of Coreg and states his "mouth and eyes were dry" and he is not going to take medications that make him uncomfortable. I explained he has cardiomyopathy with an EF <20% and that normal is 65%; he's at great risk for sudden , and needs further testing, medications, and a Life Vest before leaving the hospital. He does not appear to have insight in to the severity of his disease. He insists he needs to leave the hospital to move from his apartment as his landlord is calling him and leaving many messages. His plan is to go move out and then return to continue his evaluation and treatment. I explained he cannot perform that kind of exertion due to his heart disease and he tells me he's "fine to do it" as he was working the day before admission. I brought to his attention his symptoms, including his 30lbs weight gain, and he tells me he's feeling much better now. He continues to make incongruent statements, and got upset with me when I pointed his improvement is due to medications, but if he refuses to take his meds, he's going to get worse again. I also asked what would he do if he felt poorly while moving out of the apartment or if he had an emergency before returning to the hospital and he could not give a plan (like calling 911). When I brought up the fact he had been diagnosed with cardiomyopathy in 2016 at [facility] he tells me it was "just a chest cold" when in fact his EF was 25%. He did not take the medications prescribed at that time either. It is my conclusion the patient has no insight in to the severity of his diagnosis of severe cardiomyopathy, does not understand his high risk of sudden , and is unable to verbalize alternative plans to manage his condition. I believe he does not have capacity to sign out AMA. Will request Psych consult for capacity evaluation.
[2018-08-17 08:44] LABS: % Iron Saturation 6 % (15-55); Iron 28 ug/dL (50-212); Total Iron Binding Capacity 462 mcg/dL (250-450); Transferrin 330 mg/dL (203-362)
--- NOTE | 2018-08-17 10:10 | PN ---
<Vianney Cain - Last Filed: 08/17/18 10:01> Subjective Date of Service: 08/17/18 - decompensated SHF, MR Interval History: I had the pleasure seeing Mr. Thurston today in follow up. He states yesterday he developed dry itchy eyes thus felt that Coreg was causing these symptoms and has refused to take further doses. He denies chest pain, palpitations, sensation of heart racing although HR on telemetry 120-130's. He reports good urinary output. denies diarrhea, fever or chills. edema continues to improve. Medications Active Medications: Acetaminophen (Tylenol Tab*) 650 mg PO Q4H PRN PRN Reason: FEVER/PAIN Al Hydrox/Mg Hydrox/Simethicone (Maalox Plus*) 30 ml PO Q6H PRN PRN Reason: INDIGESTION Benzonatate (Tessalon Cap*) 100 mg PO BID PRN PRN Reason: COUGH Last Admin: 08/16/18 07:59 Dose: 100 mg Carvedilol (Coreg Tab*) 3.125 mg PO BID [facility] Last Admin: 08/16/18 22:57 Dose: Not Given Furosemide (Lasix Iv*) 40 mg IV DAILY [facility] Last Admin: 08/16/18 08:00 Dose: 40 mg Heparin Sodium (Porcine) (Heparin Vial(*)) 5,000 units SUBCUT Q8HR [facility] Last Admin: 08/17/18 05:46 Dose: Not Given Metoprolol Tartrate (Lopressor Iv*) 5 mg IV Q6H PRN PRN Reason: HEART RATE/PULSE Objective Vital Signs: Temp Pulse Resp BP Pulse Ox 98.6 F 128 22 105/77 100 08/17/18 06:05 08/17/18 03:14 08/17/18 08:00 08/17/18 03:14 08/17/18 03:14 Oxygen Devices in Use Now: None, Nasal Cannula Appearance: well nourished, well kept. NAD A+O x3 cooperative with exam. Eyes: PERRLA - + jaundice noted in sclera. Ears/Nose/Mouth/Throat: NL Teeth, Lips, Gums, Mucous Membranes Moist Neck: NL Appearance and Movements; NL JVP, Trachea Midline, No Thyroid Enlargement, Masses Respiratory: Symmetrical Chest Expansion and Respiratory Effort Cardiovascular: - - Tachy S1, S2 regular rate and rhythm, + mitral murmur.+ gallop no rub Abdominal: NL Sounds; No Tenderness; No Distention, No Hepatosplenomegaly Extremities: - - pretibial edema noted in bilateral lower extremities. Skin: No Rash or Ulcers Neurological: Alert and Oriented x 3 Lines/Tubes/Other Access: Clean, Dry and Intact Peripheral IV Laboratory Results: 08/16/18 05:19 08/17/18 05:11 INR (Anticoag Therapy) 1.56 (0.77-1.02) H 08/16/18 05:19 APTT 33.2 seconds (26.0-36.3) 08/15/18 21:00 Total Bilirubin 2.70 mg/dL (0.2-1.0) H 08/16/18 05:19 AST 27 U/L (13-39) 08/16/18 05:19 ALT 21 U/L (7-52) 08/16/18 05:19 Alkaline Phosphatase 92 U/L (34-104) 08/16/18 05:19 B-Natriuretic Peptide > 1300 pg/mL (<=100) H 08/15/18 21:00 Total Protein 5.7 g/dL (6.4-8.9) L 08/16/18 05:19 Albumin 3.2 g/dL (3.2-5.2) 08/16/18 05:19 Globulin 2.5 g/dL (2-4) 08/16/18 05:19 Albumin/Globulin Ratio 1.3 (1-3) 08/16/18 05:19 Triglycerides 57 mg/dL 08/16/18 05:19 Cholesterol 81 mg/dL 08/16/18 05:19 LDL Cholesterol 43 mg/dL 08/16/18 05:19 HDL Cholesterol 27.1 mg/dL 08/16/18 05:19 TSH 3.77 mcIU/mL (0.34-5.60) 08/15/18 21:00 08/15/18 08/16/18 21:00 00:19 Troponin I 0.02 0.02 Laboratory Results - last 24 hr 08/16/18 08/16/18 08/17/18 05:19 05:19 05:07 Sodium Potassium Chloride Carbon Dioxide Anion Gap BUN Creatinine Est GFR ( Amer) Est GFR (Non-Af Amer) BUN/Creatinine Ratio Glucose Calcium Magnesium Iron 28 L TIBC 462 H % Saturation 6 L Unsat Iron Binding < 447 Transferrin 332 330 Ferritin 51.1 HIV 1&2 Antibody Nonreactive 08/17/18 05:11 Sodium 134 L Potassium 4.1 Chloride 100 L Carbon Dioxide 22 Anion Gap 12 H BUN 16 Creatinine 0.99 Est GFR ( Amer) 100.3 Est GFR (Non-Af Amer) 82.9 BUN/Creatinine Ratio 16.2 Glucose 110 H Calcium 8.8 Magnesium 2.0 Iron TIBC % Saturation Unsat Iron Binding Transferrin Ferritin HIV 1&2 Antibody Diagnostic Imaging: Echo 08/15/2018; LVEF 20% with moderate to severe LV dilatation and increase trabeculation. severe biatrial dilatation, moderate to severe DC, AO 4.6cm. EKG Data: 08/16/2018; Sinus tachycardia rate 126 with tw depression in V5-6 Telemetry reviewed: Sinus tachycardia rate 130's rare PVC no VT Assessment/Plan #1 Severe LV dysfunction of unclear etiology dating back to 2015; LVEF <20%. NYHA class 3 stage C. decompensated although bilateral pretibial edema continues to improve with IV lasix 40mg day. Patient refused Coreg this morning due to c/o dry itchy eyes after dose last night. I educated him that we could order eye drops and developing dry eyes while hospitalized is not uncommon and is likely not related to coreg. His HR is still 130's Thus I recommmend continuing coreg 3.125mg PO BID with agressive uptitration if able depending on BP. ferritin was normal and % sat was <6 not suggestive of hemochromatosis. Continue IV lasix 40/day convert to PO lasix 40mg PO daily starting tomorrow. Continue strict intake and output with sodium restricted and fluid restricted diet. Life vest ordered patient agreeable to life vest. Patient still needs ischemic eval. HIV test pending. Of note there was trabiculation noted on echo, this will need to be followed up outpatient. troponin negative this admit. TSH was normal. #2 Moderate to severe MR; continue diuresis. no ACEI at this time due to BP. #3 moderate to severe pulmonary HTN; on IV diuresis. differ to primary team. #4 Medical non compliance. Patient stopped prior CHF medication regimen sometime after 2015 he does not offer insight into this. he has not been seeing cardiology of PCP since diagnosis and was not able to offer insight to his disease process. Marco is to see patient. I had a long conversation with him today about leaving the hospital to move articles from his apartment. He stated " whats the worse that can happen? I come back" I kindly informed him that he could of sudden cardiac given severe LV dysfunction of unknown etiology and still needing lifevest application and ischemic eval ( I did break this down in lay man's terms) I paged Dr. Day to notify her of patients continued persistence to leave [place]. Attending: Bridgette Ramirez <Bridgette Ramirez - Last Filed: 08/17/18 16:34> Medications Active Medications: Acetaminophen (Tylenol Tab*) 650 mg PO Q4H PRN PRN Reason: FEVER/PAIN Al Hydrox/Mg Hydrox/Simethicone (Maalox Plus*) 30 ml PO Q6H PRN PRN Reason: INDIGESTION Benzonatate (Tessalon Cap*) 100 mg PO BID PRN PRN Reason: COUGH Last Admin: 08/16/18 07:59 Dose: 100 mg Carvedilol (Coreg Tab*) 3.125 mg PO BID [facility] Last Admin: 08/17/18 13:34 Dose: 3.125 mg Docusate Sodium (Colace Cap*) 100 mg PO BID [facility] Last Admin: 08/17/18 13:34 Dose: 100 mg Furosemide (Lasix Iv*) 40 mg IV DAILY [facility] Last Admin: 08/17/18 13:35 Dose: 40 mg Heparin Sodium (Porcine) (Heparin Vial(*)) 5,000 units SUBCUT Q8HR [facility] Last Admin: 08/17/18 13:38 Dose: Not Given Metoprolol Tartrate (Lopressor Iv*) 5 mg IV Q6H PRN PRN Reason: HEART RATE/PULSE Polyvinyl Alcohol (Polyvinyl Alcohol 1.4% Opth*) 1 drop BOTH EYES Q2H PRN PRN Reason: DRY EYE Objective Vital Signs: Temp Pulse Resp BP Pulse Ox 99.5 F 129 18 98/77 100 08/17/18 15:34 08/17/18 15:34 08/17/18 15:34 08/17/18 15:34 08/17/18 15:34 Laboratory Results: 08/16/18 05:19 08/17/18 05:11 INR (Anticoag Therapy) 1.56 (0.77-1.02) H 08/16/18 05:19 APTT 33.2 seconds (26.0-36.3) 08/15/18 21:00 Total Bilirubin 2.70 mg/dL (0.2-1.0) H 08/16/18 05:19 AST 27 U/L (13-39) 08/16/18 05:19 ALT 21 U/L (7-52) 08/16/18 05:19 Alkaline Phosphatase 92 U/L (34-104) 08/16/18 05:19 B-Natriuretic Peptide > 1300 pg/mL (<=100) H 08/15/18 21:00 Total Protein 5.7 g/dL (6.4-8.9) L 08/16/18 05:19 Albumin 3.2 g/dL (3.2-5.2) 08/16/18 05:19 Globulin 2.5 g/dL (2-4) 08/16/18 05:19 Albumin/Globulin Ratio 1.3 (1-3) 08/16/18 05:19 Triglycerides 57 mg/dL 08/16/18 05:19 Cholesterol 81 mg/dL 08/16/18 05:19 LDL Cholesterol 43 mg/dL 08/16/18 05:19 HDL Cholesterol 27.1 mg/dL 08/16/18 05:19 TSH 3.77 mcIU/mL (0.34-5.60) 08/15/18 21:00 08/15/18 08/16/18 21:00 00:19 Troponin I 0.02 0.02 Assessment/Plan The patient was seen and examined personally. States leg edema has improved but not normalized. He still wakes up SOB in the afternoons. New productive cough of yellow sputum that started in [facility]. Rhonchorous cough, diminished BS in the bases. S1S2 regular, tachycardic, S3 justin. 3+ LE edema, left worse than right. Psychiatric issues noted. I agree with the above plans for depressed EF, MR and fluid overload. Future options could include aldactone (or Eplerinone), Entresto.
--- NOTE | 2018-08-17 10:45 | PN ---
Subjective Date of Service: 08/17/18 Interval History: HOSPITALIST PROGRESS NOTE Patient seen and examined at bedside. Care reviewed and d/w Jamie Thompson RN. He states he's feeling better, but refusing medications because they make him feel "uncomfortable". See prior note today. Family History: Unchanged from Admission Social History: Unchanged from Admission Past Medical History: Unchanged from Admission Objective Active Medications: Acetaminophen (Tylenol Tab*) 650 mg PO Q4H PRN PRN Reason: FEVER/PAIN Al Hydrox/Mg Hydrox/Simethicone (Maalox Plus*) 30 ml PO Q6H PRN PRN Reason: INDIGESTION Benzonatate (Tessalon Cap*) 100 mg PO BID PRN PRN Reason: COUGH Last Admin: 08/16/18 07:59 Dose: 100 mg Carvedilol (Coreg Tab*) 3.125 mg PO BID [facility] Last Admin: 08/16/18 22:57 Dose: Not Given Furosemide (Lasix Iv*) 40 mg IV DAILY [facility] Last Admin: 08/16/18 08:00 Dose: 40 mg Heparin Sodium (Porcine) (Heparin Vial(*)) 5,000 units SUBCUT Q8HR [facility] Last Admin: 08/17/18 05:46 Dose: Not Given Metoprolol Tartrate (Lopressor Iv*) 5 mg IV Q6H PRN PRN Reason: HEART RATE/PULSE Vital Signs - 8 hr 08/17/18 08/17/18 08/17/18 03:14 06:05 08:00 Temperature 100.2 F 98.6 F Pulse Rate 128 Respiratory 24 22 Rate Blood Pressure 105/77 (mmHg) O2 Sat by Pulse 100 Oximetry Oxygen Devices in Use Now: Nasal Cannula Appearance: Young gentleman lying in bed in NAD. Eyes: No Scleral Icterus Ears/Nose/Mouth/Throat: Mucous Membranes Moist Neck: Trachea Midline Respiratory: Symmetrical Chest Expansion and Respiratory Effort, Clear to Auscultation Cardiovascular: RRR - Normal S1 and S2 Abdominal: NL Sounds; No Tenderness; No Distention Extremities: - - Bilateral LE moderate to severe edema Neurological: Alert and Oriented x 3, NL Muscle Strength and Tone Result Diagrams: 08/16/18 05:19 08/17/18 05:11 Assess/Plan/Problems-Billing Assessment: Mr Thurston is a 42yo M with PMH of pancreatitis, who presented to ED with c/o dyspnea and LE edema, found to have new onset CHF. - Patient Problems (1) CHF (congestive heart failure) Comment: - Patient has new onset CHF, with signs of Pulm HTN and RV failure. New systolic CHF with EF<20% and moderate to severe MR/TR. - Echo reviewed and Cardiology input appreciated. - Continue diuresis, Coreg as tolerated. (2) Increased bilirubin level Comment: - Likely secondary to congestive hepatopathy. (3) DVT prophylaxis Comment: - SQ heparin. (4) Full code status Status and Disposition: Inpatient to continue cardiac w/u and management. Patient has no insight in to his medical condition and does not have capacity to s/o AMA at this time.
[2018-08-17] MEDS: Furosemide IV* 10 MG/ML VIAL (40 MG) IV SCH ×2 (11:15→13:35)
[2018-08-17] MEDS: Carvedilol TAB* 3.125 MG PO SCH ×3 (11:15→23:14)
--- NOTE | 2018-08-17 11:18 | CONSULT ---
Consult Consult: Consult for Medical Decision Making Capacity S: Psychiatry is asked to evaluate capacity in this 42 y.o. single, black male admitted to Telemetry on August 16 due to symptoms of dyspnea and lower extremity edema and subsequently discovered to be in heart failure with an EF of only 20% and significant, life-threatening tachycardia. The patient is reporting that he needs to move apartments today and is seeking discharge AMA. I spoke with attending Dr. Day, who feels that further diagnostic workup and treatment are essential and that the risks of him leaving without these include sudden . On exam the patient is calm and cooperative. His friend, Tayla Quezada, who identifies herself as a former employer and friend, is present, as Dung has called her to come to the hospital and take him home. The patient is able to articulate that he is having trouble with his heart, but his understanding is limited to that assertion. He is unable to identify any specific risks to his health or life by leaving AMA, despite being given numerous opportunities to do so. Mostly, he is perseverative about leaving the hospital to get some of his belongings out of his old apartment before his ex-landlord throws them into the garbage. "I have tools there and things I need to do to have work in the Spring." He declines this clinician's offer to call his ex-landlord to advocate for him. 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 Thurston failed to demonstrate a reasonable understanding of his illness, the recommended treatment or the associated risks of refusing said treatment. In my judgment, he lacks the capacity to make an informed decision about staying in the hospital for continued cardiopulmonary workup and stabilization. Capacity is subject to change in these situations and psychiatry can be re-consulted in the event of any significant changes in his presentation/situation. I have discussed my opinion with the patient, his friend Zaira Damien, unit staff and attending hosptialist, Dr. Day. Thank you for the consult.
[2018-08-17] MEDS ORDERED: Artificial Tears* 15 ML BTL BOTH EYES PRN (12:29)
[2018-08-17] MEDS: Docusate CAP* 100 MG PO SCH ×2 (13:34→23:15)
[2018-08-18 06:15] LABS: Hematocrit 34 % (42-52); Hemoglobin 11.5 g/dl (14.0-18.0); Mean Corpuscular HGB Conc 33 g/dl (31-36); Mean Corpuscular Hemoglobin 27 pg (27-31); Mean Corpuscular Volume 81 fL (80-94); Mean Platelet Volume 7.7 fL (7.4-10.4); Platelet Count 202 10^3/ul (150-450); Red Blood Count 4.23 10^6/ul (4.00-5.40); Red Cell Distribution Width 15 % (10.5-15); White Blood Count 5.8 10^3/ul (3.5-10.8)
[2018-08-18 06:19] LABS: INR 1.69 (0.77-1.02)
[2018-08-18 06:37] LABS: Albumin 3.2 g/dL (3.2-5.2); Albumin/Globulin Ratio 1.3 (1-3); BUN/Creatinine Ratio 24.4 (8-20); Calcium 8.9 mg/dL (8.6-10.3); EGFR African American 81.1 (>60); Globulin 2.5 g/dL (2-4); Indirect Bilirubin 2.6 mg/dL (0.3-1.0); Potassium 4.5 mmol/L (3.5-5.0); Total Bilirubin 3.4 mg/dL (0.2-1.0); Total Protein 5.7 g/dL (6.4-8.9)
[2018-08-18 06:49] LABS: ABS Basophils 0 10^3/ul (0-0.2); ABS Eosinophils 0 10^3/ul (0-0.6); ABS Lymphocytes 0.8 10^3/ul (1.0-4.8); ABS Monocytes 0.6 10^3/ul (0-0.8); ABS Neutrophils 4.3 10^3/ul (1.5-7.7); ABS Nucleated RBC 0 10^3/ul; Eosinophil % 0 %; Lymphocyte % 14.1 %; Nucleated Red Blood Cells % 0.1
[2018-08-18] MEDS: Heparin VIAL(*) 5000 UNITS/ML VIAL (FIVE THOUSAND) SUBCUT SCH ×3 (07:08→20:59)
[2018-08-18] MEDS ORDERED: Phytonadione Oral Solution* 5 MG/25 ML UDC PO ONE (07:16)
[2018-08-18] MEDS ORDERED: Furosemide TAB* 40 MG PO SCH (10:00)
--- NOTE | 2018-08-18 10:02 | PN ---
Subjective Date of Service: 08/18/18 - Decompensated SHF, MR Interval History: Spoke to Gerson BLACKMON who states he was told in report patient had refused Coreg last night.I had Gerson go into patient's room with me to clarify details. Per patient he was nauseous and vomiting thus did not take medications, unfortunately there is no clinical documentation of this nor was this information passed along in nursing report. He denies chest pain, palpitations, sensation of heart racing, adds edema is improving and reports good urinary output. No further episodes of n/v per patient. Medications Active Medications: Acetaminophen (Tylenol Tab*) 650 mg PO Q4H PRN PRN Reason: FEVER/PAIN Al Hydrox/Mg Hydrox/Simethicone (Maalox Plus*) 30 ml PO Q6H PRN PRN Reason: INDIGESTION Benzonatate (Tessalon Cap*) 100 mg PO BID PRN PRN Reason: COUGH Last Admin: 08/16/18 07:59 Dose: 100 mg Carvedilol (Coreg Tab*) 3.125 mg PO BID [facility] Last Admin: 08/17/18 23:14 Dose: Not Given Docusate Sodium (Colace Cap*) 100 mg PO BID [facility] Last Admin: 08/17/18 23:15 Dose: Not Given Furosemide (Lasix Tab*) 40 mg PO DAILY [facility] Heparin Sodium (Porcine) (Heparin Vial(*)) 5,000 units SUBCUT Q8HR [facility] Last Admin: 08/18/18 07:08 Dose: Not Given Lisinopril (Prinivil Tab*) 2.5 mg PO DAILY [facility] Metoprolol Tartrate (Lopressor Iv*) 5 mg IV Q6H PRN PRN Reason: HEART RATE/PULSE Polyvinyl Alcohol (Polyvinyl Alcohol 1.4% Opth*) 1 drop BOTH EYES Q2H PRN PRN Reason: DRY EYE Objective Vital Signs: Temp Pulse Resp BP Pulse Ox 98.4 F 119 20 99/78 100 08/18/18 07:21 08/18/18 07:21 08/18/18 08:00 08/18/18 07:21 08/18/18 07:21 Oxygen Devices in Use Now: Nasal Cannula Appearance: well nourished, well kept. NAD A+O x3 cooperative with exam. Eyes: PERRLA - + jaundice noted in sclera. Ears/Nose/Mouth/Throat: NL Teeth, Lips, Gums, Mucous Membranes Moist Neck: NL Appearance and Movements; NL JVP, Trachea Midline, No Thyroid Enlargement, Masses Respiratory: Symmetrical Chest Expansion and Respiratory Effort Cardiovascular: - - Tachy S1, S2 regular rate and rhythm, + mitral murmur.+ gallop no rub Abdominal: NL Sounds; No Tenderness; No Distention, No Hepatosplenomegaly Extremities: - - trace pretibial edema noted in bilateral lower extremities. Skin: No Rash or Ulcers Neurological: Alert and Oriented x 3 Lines/Tubes/Other Access: Clean, Dry and Intact Peripheral IV Laboratory Results: 08/18/18 05:36 08/18/18 05:36 INR (Anticoag Therapy) 1.69 (0.77-1.02) H 08/18/18 05:36 APTT 33.2 seconds (26.0-36.3) 08/15/18 21:00 Total Bilirubin 3.40 mg/dL (0.2-1.0) H 08/18/18 05:36 Direct Bilirubin 0.80 mg/dL (0.03-0.18) H 08/18/18 05:36 Indirect Bilirubin 2.6 mg/dL (0.3-1.0) H 08/18/18 05:36 AST 31 U/L (13-39) 08/18/18 05:36 ALT 27 U/L (7-52) 08/18/18 05:36 Alkaline Phosphatase 85 U/L (34-104) 08/18/18 05:36 B-Natriuretic Peptide > 1300 pg/mL (<=100) H 08/15/18 21:00 Total Protein 5.7 g/dL (6.4-8.9) L 08/18/18 05:36 Albumin 3.2 g/dL (3.2-5.2) 08/18/18 05:36 Globulin 2.5 g/dL (2-4) 08/18/18 05:36 Albumin/Globulin Ratio 1.3 (1-3) 08/18/18 05:36 Triglycerides 57 mg/dL 08/16/18 05:19 Cholesterol 81 mg/dL 08/16/18 05:19 LDL Cholesterol 43 mg/dL 08/16/18 05:19 HDL Cholesterol 27.1 mg/dL 08/16/18 05:19 TSH 3.77 mcIU/mL (0.34-5.60) 08/15/18 21:00 08/15/18 08/16/18 21:00 00:19 Troponin I 0.02 0.02 Laboratory Results - last 24 hr 08/18/18 08/18/18 08/18/18 05:33 05:36 05:36 WBC RBC Hgb Hct MCV MCH MCHC RDW Plt Count MPV Neut % (Auto) Lymph % (Auto) Jennings % (Auto) Eos % (Auto) Baso % (Auto) Absolute Neuts (auto) Absolute Lymphs (auto) Absolute Monos (auto) Absolute Eos (auto) Absolute Basos (auto) Absolute Nucleated RBC Nucleated RBC % INR (Anticoag Therapy) 1.69 H Sodium 135 Potassium 4.5 Chloride 100 L Carbon Dioxide 22 Anion Gap 13 H BUN 29 H Creatinine 1.19 H Est GFR ( Amer) 81.1 Est GFR (Non-Af Amer) 67.0 BUN/Creatinine Ratio 24.4 H Glucose 111 H Calcium 8.9 Magnesium 2.0 Total Bilirubin 3.40 H Direct Bilirubin 0.80 H Indirect Bilirubin 2.6 H AST 31 ALT 27 Alkaline Phosphatase 85 Lactate Dehydrogenase 244 Total Protein 5.7 L Albumin 3.2 Globulin 2.5 Albumin/Globulin Ratio 1.3 08/18/18 05:36 WBC 5.8 RBC 4.23 Hgb 11.5 L Hct 34 L MCV 81 MCH 27 MCHC 33 RDW 15 Plt Count 202 MPV 7.7 Neut % (Auto) 74.9 Lymph % (Auto) 14.1 Jennings % (Auto) 10.8 Eos % (Auto) 0 Baso % (Auto) 0.2 Absolute Neuts (auto) 4.3 Absolute Lymphs (auto) 0.8 L Absolute Monos (auto) 0.6 Absolute Eos (auto) 0 Absolute Basos (auto) 0 Absolute Nucleated RBC 0 Nucleated RBC % 0.1 INR (Anticoag Therapy) Sodium Potassium Chloride Carbon Dioxide Anion Gap BUN Creatinine Est GFR ( Amer) Est GFR (Non-Af Amer) BUN/Creatinine Ratio Glucose Calcium Magnesium Total Bilirubin Direct Bilirubin Indirect Bilirubin AST ALT Alkaline Phosphatase Lactate Dehydrogenase Total Protein Albumin Globulin Albumin/Globulin Ratio Diagnostic Imaging: Echo 08/15/2018; LVEF 20% with moderate to severe LV dilatation and increase trabeculation. severe biatrial dilatation, moderate to severe IN, AO 4.6cm. Liver US: + ascites, + fatty liver infiltrate with borderline hepatomegaly, echogenic renal parenchyma ? medical renal disease per radiology report. EKG Data: 08/16/2018; Sinus tachycardia rate 126 with tw depression in V5-6 Telemetry reviewed: Sinus tachycardia rate 1156-120's rare PVC no VT Assessment/Plan #1 Severe LV dysfunction; LVEF < 20% NYHA Class 3 stage C. Will convert IV lasixx to PO. Continue 40mg PO daily. breathing and pretibial edema have improved. Will continue Coreg 3.125mg PO BID. Add Lisinopril 2.5mg PO daily with parameter to hold for SBP<90. HR on telemetry 115-120's he did not receive Coreg last night unclear if it was truly patient refusing or if he was having n/ v. etiology not clear. TFTs were normal. Labs not suggestive of hemochromatosis. Needs eventual ischemic eval however, first he needs to be on consistant medical therapy and the past two days he has either refused coreg or has had possible symptoms that resulted in him not receiving coreg. Order for Lifevest has already been placed. There was + trabeculation noted on echo this will need to be followed outpatient for possible further imaging. will consider adding Aldactone in future but ideally I would like to optimize Coreg first to improve tachycardia. #2 Abnormal Liver test, INR today 1.69, bili 2.6, Bili was 3.1 on 07/27/2018 at [place]. Abdominal US obtained which per radiology report revealed + fatty infiltrates with borderline hepatomagely, Dr. Dunne is managing. He had been previously hospitalized in 2014 for pancreatitis and reported only drinking socially. #3 Moderate to Severe MR; will convert lasix to PO. will need to be followed up on outpatient. #4 Sinus Tachycardia; encouraged patient to take Coreg therapy. He seems to be responsive to taking Coreg today. #5 Medical non compliance; Psych has been following the patient. Pych has been evaluating the patient. Yesterday he was deemed to lack the capacity to make an informed desicion thus was not able to leave AMA> Patient is a full code. Will continue to follow. Will discuss plan of care with Dr. Rick Mcgrath. Please do not hesitation to contact our service with any future questions or concerns. Attending: Rick Mcgrath
[2018-08-18] MEDS: Carvedilol TAB* 3.125 MG PO SCH ×2 (10:07→20:44)
[2018-08-18] MEDS: Docusate CAP* 100 MG PO SCH ×2 (10:07→20:44)
[2018-08-18] MEDS: Furosemide IV* 10 MG/ML VIAL (40 MG) IV SCH (10:09)
--- NOTE | 2018-08-18 12:23 | PN ---
Subjective Date of Service: 08/18/18 Interval History: HOSPITALIST PROGRESS NOTE Patient seen and examined at bedside. Care reviewed and d/w Gerson Britton RN. States he refused medications last night because he had nausea. Denies CP, palpitations, dyspnea. Family History: Unchanged from Admission Social History: Unchanged from Admission Past Medical History: Unchanged from Admission Objective Active Medications: Acetaminophen (Tylenol Tab*) 650 mg PO Q4H PRN PRN Reason: FEVER/PAIN Al Hydrox/Mg Hydrox/Simethicone (Maalox Plus*) 30 ml PO Q6H PRN PRN Reason: INDIGESTION Benzonatate (Tessalon Cap*) 100 mg PO BID PRN PRN Reason: COUGH Last Admin: 08/16/18 07:59 Dose: 100 mg Carvedilol (Coreg Tab*) 3.125 mg PO BID [facility] Last Admin: 08/18/18 10:07 Dose: 3.125 mg Docusate Sodium (Colace Cap*) 100 mg PO BID [facility] Last Admin: 08/18/18 10:07 Dose: 100 mg Furosemide (Lasix Tab*) 40 mg PO DAILY [facility] Last Admin: 08/18/18 10:07 Dose: 40 mg Heparin Sodium (Porcine) (Heparin Vial(*)) 5,000 units SUBCUT Q8HR [facility] Last Admin: 08/18/18 07:08 Dose: Not Given Lisinopril (Prinivil Tab*) 2.5 mg PO DAILY [facility] Metoprolol Tartrate (Lopressor Iv*) 5 mg IV Q6H PRN PRN Reason: HEART RATE/PULSE Polyvinyl Alcohol (Polyvinyl Alcohol 1.4% Opth*) 1 drop BOTH EYES Q2H PRN PRN Reason: DRY EYE Vital Signs - 8 hr 08/18/18 08/18/18 07:21 08:00 Temperature 98.4 F Pulse Rate 119 Respiratory 20 18 Rate Blood Pressure 99/78 (mmHg) O2 Sat by Pulse 100 Oximetry Oxygen Devices in Use Now: Nasal Cannula Appearance: Well built gentleman lying in bed in NAD. Eyes: No Scleral Icterus Ears/Nose/Mouth/Throat: Mucous Membranes Moist Neck: Trachea Midline Respiratory: Symmetrical Chest Expansion and Respiratory Effort, Clear to Auscultation Cardiovascular: RRR - Normal S1 and S2 Extremities: - Neurological: Alert and Oriented x 3, NL Muscle Strength and Tone Result Diagrams: 08/18/18 05:36 08/18/18 05:36 Assess/Plan/Problems-Billing Assessment: Mr Thurston is a 42yo M with PMH of pancreatitis, who presented to ED with c/o dyspnea and LE edema, found to have new onset CHF. - Patient Problems (1) CHF (congestive heart failure) Comment: - Patient has new onset CHF, with signs of Pulm HTN and RV failure. New systolic CHF with EF<20% and moderate to severe MR/TR. - Echo reviewed and Cardiology input appreciated. - Advised again about importance of med compliance. - Cardiology reluctant to perform cardiac cath due to his non compliance and also because INR is trending up. (2) Increased bilirubin level Comment: - Likely secondary to congestive hepatopathy. - Bilirubin (mostly indirect) and INR continue to trend up. - Check RUQ US. - With indirect bilirubin predominance will also w/u for hemolytic anemia. - GI consult requested. (3) DVT prophylaxis Comment: - SQ heparin. (4) Full code status Status and Disposition: Inpatient to continue cardiac w/u and management. Patient has no insight in to his medical condition and does not have capacity to s/o AMA at this time. social worker aide consult requested to help us determine who his surrogate decision making is, to help him during this process.
[2018-08-18 13:04] LABS: Hepatitis C Antibody Nonreactive (Nonreactive)
[2018-08-18 13:07] LABS: Hepatitis B Surface Antigen Nonreactive (Nonreactive)
--- NOTE | 2018-08-18 20:11 | CONS ---
CC: Dr. Rae Cedeno; Dr. Mancini * CONSULTATION REPORT: DATE OF CONSULT: 08/18/18 REQUESTING PHYSICIAN: Dr. Mancini. REASON FOR CONSULT: Elevated bilirubin. HISTORY OF PRESENT ILLNESS: This is a pleasant 42-year-old male with past medical history of congestive heart failure, who presented initially to an urgent care with lower extremity swelling. He states that he also had fatigue and had been quite tired over the last 1 to 2 weeks and also became dyspneic. He states he only noticed some slight yellowing to his eyes since arriving to the hospital. He denies any history of this in the past. He denies any history of IV drug use. States he has rarely uses alcohol. In the past, he may have had 2 or 3 pitchers a week multiple years ago, but lately has not drank much at all. Denies any high-risk sexual behaviors. Denies any family history of liver disease or recent medications or herbal supplements. Denies Tylenol usage. He denies any nocturnal itching or pruritus. He admits that his urine has been slightly darker as of late. No changes to stool color. No diarrhea or constipation. Denies any abdominal discomfort. He admits to lower extremity swelling and some dyspnea. States he has never been told that he had a liver issue in the past. Admits to recent weight gain. The remainder of the 14-point review of systems is grossly negative. PAST MEDICAL HISTORY: Congestive heart failure, unclear etiology; possible pancreatitis a few years ago in [place] versus gastroenteritis by history. HOME MEDICATIONS: None. ALLERGIES: Intolerance to NSAIDs and aspirin. FAMILY HISTORY: The patient is not aware of any family history of GI cancers or inflammatory bowel disease. 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 He used to smoke cigars, quit in January. No heavy alcohol use. Has not drank in over 2 months. REVIEW OF SYSTEMS: The remainder of the 14-point review of systems is grossly negative. PHYSICAL EXAM: Vital Signs: Blood pressure is 85/69, pulse 113, respiratory rate is 16, temperature is 97.3, he is 100% on room air. In general, he is alert and oriented, in no acute distress. HEENT: Atraumatic, normocephalic. Pupils are equal, round, reactive to light. Sclerae are icteric. Cardiovascular: Tachycardic. S1, S2. Respiratory: Rales bilateral bases. Abdomen: Soft, nontender, nondistended. Bowel sounds positive. Mild hepatomegaly appreciated. Extremities: Bilateral edema. Psych: Appropriate mood. DIAGNOSTIC STUDIES/LAB DATA: Hemoglobin 11.5, WBC count is 5.8, platelet count 202. INR 1.69, D-dimer was 327. BUN is 29, creatinine is 1.19, glucose 111. Iron was 28, TIBC was 462, percent saturation was 6, ferritin was 51. Bilirubin is 3.4, direct fraction was 0.8, indirect was 2.6; AST is 31; ALT is 27; alkaline phosphatase 85. LDH is 244. CRP was high at 10.7. Albumin is 3.2. Hepatitis panel for A, B, and C was negative along with HIV testing, which was negative. He had an abdominal ultrasound on 08/18/18 that suggested fatty infiltration of the liver, borderline hepatomegaly. He did have normal hepatopetal flow of the portal vein. Ascites was also noted, small amount within the hepatorenal recess. ASSESSMENT AND PLAN: 1. Hyperbilirubinemia. Given his cardiomyopathy, I suspect this is predominantly hepatic cholestasis; however, his INR is slightly elevated as well , which can occur in this condition; however, warrants further investigation. We will plan on autoimmune testing to look for other causes of chronic liver disease. His hepatitis panel was negative. He does not have evidence of hemochromatosis based on his iron studies. We would recommend a vitamin K challenge to see if INR corrects. If ongoing elevated INR and bilirubin, could consider tapping the small amount of ascites to calculate a SAAG gradient to determine the etiology. If numbers stays stable or improve, I would recommend the patient follow up in the office with me for further evaluation. 2. Elevated INR, unclear etiology. Vitamin K challenge is appropriate. 3. Cardiomyopathy of unclear etiology. Cardiac workup in progress. [id number]/[facility] #: [id number] SHIEAL
[2018-08-18] MEDS: Lisinopril TAB* 5 MG PO SCH (20:44)
[2018-08-19] MEDS ORDERED: Morphine VIAL* 10 MG/ML 1 ML VIAL IV PRN (02:49)
[2018-08-19] MEDS: Heparin VIAL(*) 5000 UNITS/ML VIAL (FIVE THOUSAND) SUBCUT SCH ×3 (04:59→21:57)
[2018-08-19 05:41] LABS: INR 1.48 (0.77-1.02)
[2018-08-19 05:50] LABS: Albumin 2.9 g/dL (3.2-5.2); Albumin/Globulin Ratio 1.3 (1-3); BUN/Creatinine Ratio 28.3 (8-20); EGFR African American 100.3 (>60); EGFR Non-African American 82.9 (>60); Globulin 2.3 g/dL (2-4); Potassium 3.7 mmol/L (3.5-5.0); Total Bilirubin 2.3 mg/dL (0.2-1.0); Total Protein 5.2 g/dL (6.4-8.9)
[2018-08-19] MEDS ORDERED: Phytonadione Oral Solution* 5 MG/25 ML UDC PO ONE (07:21)
[2018-08-19] MEDS ORDERED: Carvedilol TAB* 3.125 MG PO SCH ×2 (07:23→09:00)
[2018-08-19] MEDS ORDERED: Potassium Chlor TAB* 20 MEQ TAB.ER PO ONE (08:29)
--- NOTE | 2018-08-19 08:44 | PN ---
Addendum entered and electronically signed by Vianney aCin NP 08/19/18 09:41 : Subjective Interval History: No events last night, patient denies further episodes of N/V. Denies SOB today. Edema has improved. He has been ambulating to bathroom with no difficulty. reports urine output has decreased. no c/o chest pain. I spoke to the patient's RN ( Gerson) who states there was no issues last night. Patient is to start INR challenge today. Medications Active Medications: Acetaminophen (Tylenol Tab*) 650 mg PO Q4H PRN PRN Reason: FEVER/PAIN Al Hydrox/Mg Hydrox/Simethicone (Maalox Plus*) 30 ml PO Q6H PRN PRN Reason: INDIGESTION Benzonatate (Tessalon Cap*) 100 mg PO BID PRN PRN Reason: COUGH Last Admin: 08/16/18 07:59 Dose: 100 mg Carvedilol (Coreg Tab*) 3.125 mg PO DAILY [facility] Last Admin: 08/19/18 08:54 Dose: 3.125 mg Carvedilol (Coreg Tab*) 6.25 mg PO 2100 [facility] Docusate Sodium (Colace Cap*) 100 mg PO BID [facility] Last Admin: 08/19/18 08:54 Dose: Not Given Furosemide (Lasix Tab*) 20 mg PO DAILY [facility] Last Admin: 08/19/18 08:57 Dose: 20 mg Heparin Sodium (Porcine) (Heparin Vial(*)) 5,000 units SUBCUT Q8HR [facility] Last Admin: 08/19/18 04:59 Dose: Not Given Lisinopril (Prinivil Tab*) 2.5 mg PO DAILY [facility] Last Admin: 08/18/18 20:44 Dose: 2.5 mg Morphine Sulfate (Morphine Vial*) 1 mg IV Q4H PRN PRN Reason: PAIN Last Admin: 08/19/18 03:24 Dose: 1 mg Polyvinyl Alcohol (Polyvinyl Alcohol 1.4% Opth*) 1 drop BOTH EYES Q2H PRN PRN Reason: DRY EYE Objective Vital Signs: Temp Pulse Resp BP Pulse Ox 97.9 F 100 20 85/61 99 08/19/18 07:28 08/19/18 07:28 08/19/18 07:28 08/19/18 07:28 08/19/18 07:28 Oxygen Devices in Use Now: None, Nasal Cannula Appearance: well nourished, well kept. NAD A+O x3 cooperative with exam. Eyes: PERRLA - + jaundice noted in sclera. Ears/Nose/Mouth/Throat: NL Teeth, Lips, Gums, Mucous Membranes Moist Neck: NL Appearance and Movements; NL JVP, Trachea Midline, No Thyroid Enlargement, Masses Respiratory: Symmetrical Chest Expansion and Respiratory Effort Cardiovascular: - - Tachy S1, S2 regular rate and rhythm, + mitral murmur.+ gallop no rub Abdominal: NL Sounds; No Tenderness; No Distention, No Hepatosplenomegaly Extremities: - - trace pretibial edema noted in bilateral lower extremities. Skin: No Rash or Ulcers Neurological: Alert and Oriented x 3 Lines/Tubes/Other Access: Clean, Dry and Intact Peripheral IV Laboratory Results: 08/18/18 05:36 08/19/18 05:26 INR (Anticoag Therapy) 1.48 (0.77-1.02) H 08/19/18 05:26 APTT 33.2 seconds (26.0-36.3) 08/15/18 21:00 Total Bilirubin 2.30 mg/dL (0.2-1.0) H 08/19/18 05:26 Direct Bilirubin 0.80 mg/dL (0.03-0.18) H 08/18/18 05:36 Indirect Bilirubin 2.6 mg/dL (0.3-1.0) H 08/18/18 05:36 AST 25 U/L (13-39) 08/19/18 05:26 ALT 24 U/L (7-52) 08/19/18 05:26 Alkaline Phosphatase 69 U/L (34-104) 08/19/18 05:26 B-Natriuretic Peptide > 1300 pg/mL (<=100) H 08/15/18 21:00 Total Protein 5.2 g/dL (6.4-8.9) L 08/19/18 05:26 Albumin 2.9 g/dL (3.2-5.2) L 08/19/18 05:26 Globulin 2.3 g/dL (2-4) 08/19/18 05:26 Albumin/Globulin Ratio 1.3 (1-3) 08/19/18 05:26 Triglycerides 57 mg/dL 08/16/18 05:19 Cholesterol 81 mg/dL 08/16/18 05:19 LDL Cholesterol 43 mg/dL 08/16/18 05:19 HDL Cholesterol 27.1 mg/dL 08/16/18 05:19 TSH 3.77 mcIU/mL (0.34-5.60) 08/15/18 21:00 08/15/18 08/16/18 21:00 00:19 Troponin I 0.02 0.02 Diagnostic Imaging: Echo 08/15/2018; LVEF 20% with moderate to severe LV dilatation and increase trabeculation. severe biatrial dilatation, severe MR, AO 4.6cm. Liver US: + ascites, + fatty liver infiltrate with borderline hepatomegaly, echogenic renal parenchyma ? medical renal disease per radiology report. EKG Data: 08/16/2018; Sinus tachycardia rate 126 with tw depression in V5-6 Telemetry reviewed: Sinus tachycardia rate 100-110 rare PVC no VT Assessment/Plan #1 Severe LV dysfunction; LVEF < 20% continue Lasix 20mg PO daily. breathing and pretibial edema have improved. Will increase Coreg to 3.125mg in AM and 6.25mg in PM with parameters. He is tolerating Lisinopril 2.5mg PO daily. HR on telemetry 100-110's . TFTs were normal. Labs not suggestive of hemochromatosis. Needs eventual ischemic eval this will need to be addressed in follow up. Order for Lifevest has already been placed. There was + trabeculation noted on echo this will need to be followed outpatient for possible further imaging. will consider adding Hydralazine with Isosorbide dinitrate ( ) in future but ideally I would like to optimize Coreg first to improve tachycardia. #2 Abnormal Liver test, INR today 1.69, bili 2.6, Bili was 3.1 on 07/27/2018 at [place]. Abdominal US obtained which per radiology report revealed + fatty infiltrates with borderline hepatomagely. Gi following. Patient is to have INR challenge today. #3 Severe secondary MR; tolerating 20mg lasix/day. will need to be followed up on outpatient. #4 Sinus Tachycardia;improving with Coreg therapy. Rates today 100-110. Coreg dose uptitrated to 3.125mg in AM and 6.25mg in PM. This is likely compensatory. #5 Medical non compliance; Psych has been following the patient. Pych has been evaluating the patient. Yesterday he was deemed to lack the capacity to make an informed desicion thus was not able to leave AMA> Patient is a full code. Will continue to follow. I offered to make f/u appointment with Dr. Gonzalez to ensure close follow up care, the patient states he will be living in [place] and would like to convert cardiac care here given he does not htink he will be able to drive to [place] for appointments. Gerson RN was present for conversation. Given patient was seen initially in consultation with Dr. Robledo will arrange outpatient f/u with Dr. Robledo. follow up appointment made with Dr. Robledo at our [facility] location on 2018 at 1145am . Attending: Rick Mcgrath Original Note: <Vianney Cain - Last Filed: 08/19/18 09:40> Subjective Date of Service: 08/19/18 - decompensated SHF, MR Interval History: No events last night, patient denies further episodes of N/V. Denies SOB today. Edema has improved. He has been ambulating to bathroom with no difficulty. reports urine output has decreased. no c/o chest pain. I spoke to the patient's RN ( Gerson) who states there was no issues last night. Patient is to start INR challenge today. Medications Active Medications: Acetaminophen (Tylenol Tab*) 650 mg PO Q4H PRN PRN Reason: FEVER/PAIN Al Hydrox/Mg Hydrox/Simethicone (Maalox Plus*) 30 ml PO Q6H PRN PRN Reason: INDIGESTION Benzonatate (Tessalon Cap*) 100 mg PO BID PRN PRN Reason: COUGH Last Admin: 08/16/18 07:59 Dose: 100 mg Carvedilol (Coreg Tab*) 3.125 mg PO DAILY [facility] Carvedilol (Coreg Tab*) 6.25 mg PO DAILY [facility] Docusate Sodium (Colace Cap*) 100 mg PO BID [facility] Last Admin: 08/18/18 20:44 Dose: Not Given Furosemide (Lasix Tab*) 20 mg PO DAILY [facility] Heparin Sodium (Porcine) (Heparin Vial(*)) 5,000 units SUBCUT Q8HR [facility] Last Admin: 08/19/18 04:59 Dose: Not Given Lisinopril (Prinivil Tab*) 2.5 mg PO DAILY [facility] Last Admin: 08/18/18 20:44 Dose: 2.5 mg Morphine Sulfate (Morphine Vial*) 1 mg IV Q4H PRN PRN Reason: PAIN Last Admin: 08/19/18 03:24 Dose: 1 mg Polyvinyl Alcohol (Polyvinyl Alcohol 1.4% Opth*) 1 drop BOTH EYES Q2H PRN PRN Reason: DRY EYE Potassium Chloride (Klor Con Er Tab*) 20 meq PO ONCE ONE Stop: 08/19/18 08:30 Objective Vital Signs: Temp Pulse Resp BP Pulse Ox 98.3 F 63 16 92/55 100 08/19/18 03:32 08/19/18 03:32 08/19/18 04:30 08/19/18 04:23 08/19/18 03:32 Oxygen Devices in Use Now: None, Nasal Cannula Appearance: well nourished, well kept. NAD A+O x3 cooperative with exam. Eyes: PERRLA - + jaundice noted in sclera. Ears/Nose/Mouth/Throat: NL Teeth, Lips, Gums, Mucous Membranes Moist Neck: NL Appearance and Movements; NL JVP, Trachea Midline, No Thyroid Enlargement, Masses Respiratory: Symmetrical Chest Expansion and Respiratory Effort Cardiovascular: - - Tachy S1, S2 regular rate and rhythm, + mitral murmur.+ gallop no rub Abdominal: NL Sounds; No Tenderness; No Distention, No Hepatosplenomegaly Extremities: - - trace pretibial edema noted in bilateral lower extremities. Skin: No Rash or Ulcers Neurological: Alert and Oriented x 3 Lines/Tubes/Other Access: Clean, Dry and Intact Peripheral IV Laboratory Results: 08/18/18 05:36 08/19/18 05:26 INR (Anticoag Therapy) 1.48 (0.77-1.02) H 08/19/18 05:26 APTT 33.2 seconds (26.0-36.3) 08/15/18 21:00 Total Bilirubin 2.30 mg/dL (0.2-1.0) H 08/19/18 05:26 Direct Bilirubin 0.80 mg/dL (0.03-0.18) H 08/18/18 05:36 Indirect Bilirubin 2.6 mg/dL (0.3-1.0) H 08/18/18 05:36 AST 25 U/L (13-39) 08/19/18 05:26 ALT 24 U/L (7-52) 08/19/18 05:26 Alkaline Phosphatase 69 U/L (34-104) 08/19/18 05:26 B-Natriuretic Peptide > 1300 pg/mL (<=100) H 08/15/18 21:00 Total Protein 5.2 g/dL (6.4-8.9) L 08/19/18 05:26 Albumin 2.9 g/dL (3.2-5.2) L 08/19/18 05:26 Globulin 2.3 g/dL (2-4) 08/19/18 05:26 Albumin/Globulin Ratio 1.3 (1-3) 08/19/18 05:26 Triglycerides 57 mg/dL 08/16/18 05:19 Cholesterol 81 mg/dL 08/16/18 05:19 LDL Cholesterol 43 mg/dL 08/16/18 05:19 HDL Cholesterol 27.1 mg/dL 08/16/18 05:19 TSH 3.77 mcIU/mL (0.34-5.60) 08/15/18 21:00 08/15/18 08/16/18 21:00 00:19 Troponin I 0.02 0.02 Laboratory Results - last 24 hr 08/18/18 08/19/18 08/19/18 05:33 05:26 05:26 INR (Anticoag Therapy) 1.48 H Sodium 134 L Potassium 3.7 Chloride 102 Carbon Dioxide 27 Anion Gap 5 BUN 28 H Creatinine 0.99 Est GFR ( Amer) 100.3 Est GFR (Non-Af Amer) 82.9 BUN/Creatinine Ratio 28.3 H Glucose 107 H Calcium 8.0 L Total Bilirubin 2.30 H AST 25 ALT 24 Alkaline Phosphatase 69 Ammonia Total Protein 5.2 L Albumin 2.9 L Globulin 2.3 Albumin/Globulin Ratio 1.3 Hepatitis A IgM Ab Nonreactive Hep Bs Antigen Nonreactive Hep B Core IgM Ab Nonreactive Hepatitis C Antibody Nonreactive Hepatitis C Ab Index 0.1 08/19/18 05:26 INR (Anticoag Therapy) Sodium Potassium Chloride Carbon Dioxide Anion Gap BUN Creatinine Est GFR ( Amer) Est GFR (Non-Af Amer) BUN/Creatinine Ratio Glucose Calcium Total Bilirubin AST ALT Alkaline Phosphatase Ammonia 53 Total Protein Albumin Globulin Albumin/Globulin Ratio Hepatitis A IgM Ab Hep Bs Antigen Hep B Core IgM Ab Hepatitis C Antibody Hepatitis C Ab Index Diagnostic Imaging: Echo 08/15/2018; LVEF 20% with moderate to severe LV dilatation and increase trabeculation. severe biatrial dilatation, severe MR, AO 4.6cm. Liver US: + ascites, + fatty liver infiltrate with borderline hepatomegaly, echogenic renal parenchyma ? medical renal disease per radiology report. EKG Data: 08/16/2018; Sinus tachycardia rate 126 with tw depression in V5-6 Telemetry reviewed: Sinus tachycardia rate 100-110 rare PVC no VT Assessment/Plan #1 Severe LV dysfunction; LVEF < 20% continue Lasix 20mg PO daily. breathing and pretibial edema have improved. Will increase Coreg to 3.125mg in AM and 6.25mg in PM with parameters. He is tolerating Lisinopril 2.5mg PO daily. HR on telemetry 100-110's . TFTs were normal. Labs not suggestive of hemochromatosis. Needs eventual ischemic eval this will need to be addressed in follow up. Order for [facility] has already been placed. There was + trabeculation noted on echo this will need to be followed outpatient for possible further imaging. will consider adding Hydralazine with Isosorbide dinitrate ( ) in future but ideally I would like to optimize Coreg first to improve tachycardia. #2 Abnormal Liver test, INR today 1.69, bili 2.6, Bili was 3.1 on 07/27/2018 at [place]. Abdominal US obtained which per radiology report revealed + fatty infiltrates with borderline hepatomagely. Gi following. Patient is to have INR challenge today. #3 Severe secondary MR; tolerating 20mg lasix/day. will need to be followed up on outpatient. #4 Sinus Tachycardia;improving with Coreg therapy. Rates today 100-110. Coreg dose uptitrated to 3.125mg in AM and 6.25mg in PM. This is likely compensatory. #5 Medical non compliance; Psych has been following the patient. Pych has been evaluating the patient. Yesterday he was deemed to lack the capacity to make an informed desicion thus was not able to leave AMA> Patient is a full code. Will continue to follow. I offered to make f/u appointment with Dr. Gonzalez to ensure close follow up care, the patient states he will be living in [place] and would like to convert cardiac care here given he does not htink he will be able to drive to [place] for appointments. Gerson BLACKMON was present for conversation. Given patient was seen initially in consultation with Dr. Robledo will arrange outpatient f/u with Dr. Robledo. Attending: Rick Mcgrath <Rick Mcgrath - Last Filed: 08/19/18 11:02> Medications Active Medications: Acetaminophen (Tylenol Tab*) 650 mg PO Q4H PRN PRN Reason: FEVER/PAIN Al Hydrox/Mg Hydrox/Simethicone (Maalox Plus*) 30 ml PO Q6H PRN PRN Reason: INDIGESTION Benzonatate (Tessalon Cap*) 100 mg PO BID PRN PRN Reason: COUGH Last Admin: 08/16/18 07:59 Dose: 100 mg Carvedilol (Coreg Tab*) 3.125 mg PO DAILY [facility] Last Admin: 08/19/18 08:54 Dose: 3.125 mg Carvedilol (Coreg Tab*) 6.25 mg PO 2100 [facility] Docusate Sodium (Colace Cap*) 100 mg PO BID [facility] Last Admin: 08/19/18 08:54 Dose: Not Given Furosemide (Lasix Tab*) 20 mg PO DAILY [facility] Last Admin: 08/19/18 08:57 Dose: 20 mg Heparin Sodium (Porcine) (Heparin Vial(*)) 5,000 units SUBCUT Q8HR [facility] Last Admin: 08/19/18 04:59 Dose: Not Given Lisinopril (Prinivil Tab*) 2.5 mg PO DAILY [facility] Last Admin: 08/18/18 20:44 Dose: 2.5 mg Morphine Sulfate (Morphine Vial*) 1 mg IV Q4H PRN PRN Reason: PAIN Last Admin: 08/19/18 03:24 Dose: 1 mg Polyvinyl Alcohol (Polyvinyl Alcohol 1.4% Opth*) 1 drop BOTH EYES Q2H PRN PRN Reason: DRY EYE Objective Vital Signs: Temp Pulse Resp BP Pulse Ox 97.9 F 100 20 85/61 99 08/19/18 07:28 08/19/18 07:28 08/19/18 07:28 08/19/18 07:28 08/19/18 07:28 Laboratory Results: 08/18/18 05:36 08/19/18 05:26 INR (Anticoag Therapy) 1.48 (0.77-1.02) H 08/19/18 05:26 APTT 33.2 seconds (26.0-36.3) 08/15/18 21:00 Total Bilirubin 2.30 mg/dL (0.2-1.0) H 08/19/18 05:26 Direct Bilirubin 0.80 mg/dL (0.03-0.18) H 08/18/18 05:36 Indirect Bilirubin 2.6 mg/dL (0.3-1.0) H 08/18/18 05:36 AST 25 U/L (13-39) 08/19/18 05:26 ALT 24 U/L (7-52) 08/19/18 05:26 Alkaline Phosphatase 69 U/L (34-104) 08/19/18 05:26 B-Natriuretic Peptide > 1300 pg/mL (<=100) H 08/15/18 21:00 Total Protein 5.2 g/dL (6.4-8.9) L 08/19/18 05:26 Albumin 2.9 g/dL (3.2-5.2) L 08/19/18 05:26 Globulin 2.3 g/dL (2-4) 08/19/18 05:26 Albumin/Globulin Ratio 1.3 (1-3) 08/19/18 05:26 Triglycerides 57 mg/dL 08/16/18 05:19 Cholesterol 81 mg/dL 08/16/18 05:19 LDL Cholesterol 43 mg/dL 08/16/18 05:19 HDL Cholesterol 27.1 mg/dL 08/16/18 05:19 TSH 3.77 mcIU/mL (0.34-5.60) 08/15/18 21:00 08/15/18 08/16/18 21:00 00:19 Troponin I 0.02 0.02 Assessment/Plan Patient with acute on chronic systolic HF and severe secondary MR (first diagnosed 2015) secondary to medication non-adherence. Titrating cardiomyopathy medications. Patients BP remains marginal and has compensatory tachycardia to maintain cardiac output. He declines digoxin. He declines spironolactone. Once compensated from a cardiac standpoint he can be discharged with plans for outpatient follow up for further evaluation and management.
[2018-08-19] MEDS ORDERED: Carvedilol TAB* 3.125 MG ONE (08:46)
[2018-08-19] MEDS: Docusate CAP* 100 MG PO SCH ×2 (08:54→21:56)
[2018-08-19] MEDS: Furosemide TAB* 20 MG PO SCH (08:57)
--- NOTE | 2018-08-19 14:54 | PN ---
Subjective Date of Service: 08/19/18 Interval History: HOSPITALIST PROGRESS NOTE Patient seen and examined at bedside. Care reviewed and d/w Gerson Britton RN. He feels better today. Compliant with medications, dyspnea and LE edema are improving. Family History: Unchanged from Admission Social History: Unchanged from Admission Past Medical History: Unchanged from Admission Objective Active Medications: Acetaminophen (Tylenol Tab*) 650 mg PO Q4H PRN PRN Reason: FEVER/PAIN Al Hydrox/Mg Hydrox/Simethicone (Maalox Plus*) 30 ml PO Q6H PRN PRN Reason: INDIGESTION Benzonatate (Tessalon Cap*) 100 mg PO BID PRN PRN Reason: COUGH Last Admin: 08/16/18 07:59 Dose: 100 mg Carvedilol (Coreg Tab*) 3.125 mg PO DAILY [facility] Last Admin: 08/19/18 08:54 Dose: 3.125 mg Carvedilol (Coreg Tab*) 6.25 mg PO 2100 [facility] Docusate Sodium (Colace Cap*) 100 mg PO BID [facility] Last Admin: 08/19/18 08:54 Dose: Not Given Furosemide (Lasix Tab*) 20 mg PO DAILY [facility] Last Admin: 08/19/18 08:57 Dose: 20 mg Heparin Sodium (Porcine) (Heparin Vial(*)) 5,000 units SUBCUT Q8HR [facility] Last Admin: 08/19/18 13:29 Dose: Not Given Lisinopril (Prinivil Tab*) 2.5 mg PO DAILY [facility] Last Admin: 08/18/18 20:44 Dose: 2.5 mg Morphine Sulfate (Morphine Vial*) 1 mg IV Q4H PRN PRN Reason: PAIN Last Admin: 08/19/18 03:24 Dose: 1 mg Polyvinyl Alcohol (Polyvinyl Alcohol 1.4% Opth*) 1 drop BOTH EYES Q2H PRN PRN Reason: DRY EYE Vital Signs - 8 hr 08/19/18 08/19/18 08/19/18 07:28 08:00 11:24 Temperature 97.9 F 98.0 F Pulse Rate 100 102 Respiratory 20 14 20 Rate Blood Pressure 85/61 79/64 (mmHg) O2 Sat by Pulse 99 100 Oximetry Oxygen Devices in Use Now: None Appearance: Pleasant gentleman lying in bed in NAD. Eyes: No Scleral Icterus Ears/Nose/Mouth/Throat: Mucous Membranes Moist Neck: Trachea Midline Respiratory: Symmetrical Chest Expansion and Respiratory Effort, Clear to Auscultation Cardiovascular: RRR - Normal S1 and S2, +mitral murmur Abdominal: NL Sounds; No Tenderness; No Distention Extremities: - - Mild bilateral LE edema Neurological: Alert and Oriented x 3, NL Muscle Strength and Tone Result Diagrams: 08/18/18 05:36 08/19/18 05:26 Assess/Plan/Problems-Billing Assessment: Mr Thurston is a 42yo M with PMH of pancreatitis, who presented to ED with c/o dyspnea and LE edema, found to have new onset CHF. - Patient Problems (1) CHF (congestive heart failure) Comment: - Patient has new onset CHF, with signs of Pulm HTN and RV failure. New systolic CHF with EF<20% and moderate to severe MR/TR. - Echo reviewed and Cardiology input appreciated. - Plan to continue medical management and f/u with Dr Robledo as outpatient to complete his ischemic w/u. (2) Increased bilirubin level Comment: - Likely secondary to congestive hepatopathy. - Bilirubin (mostly indirect) and INR now trending down - will give vitamin K again today. - RUQ US reviewed. - W/u negative for hemolytic anemia. - GI consult appreciated. (3) DVT prophylaxis Comment: - SQ heparin. (4) Full code status Status and Disposition: Inpatient to continue cardiac w/u and management. Seems to have more insight in to his condition and treatment now, does not request AMA discharge at this time. If he requests to leave, will need to determine capacity again.
[2018-08-19] MEDS: Lisinopril TAB* 5 MG PO SCH (15:35)
[2018-08-19 16:43] LABS: Haptoglobin 180 mg/dL (30 - 200)
[2018-08-19] MEDS ORDERED: Lisinopril TAB* 5 MG PO SCH (21:00)
[2018-08-19] MEDS ORDERED: Carvedilol TAB* 6.25 MG PO SCH (21:00)
[2018-08-19] MEDS: Carvedilol TAB* 3.125 MG PO SCH (21:53)
[2018-08-20 05:34] LABS: Albumin/Globulin Ratio 1.3 (1-3); BUN/Creatinine Ratio 24.7 (8-20); EGFR African American 113.4 (>60); EGFR Non-African American 93.7 (>60); Globulin 2.4 g/dL (2-4); INR 1.32 (0.77-1.02); Potassium 3.2 mmol/L (3.5-5.0); Total Bilirubin 1.6 mg/dL (0.2-1.0); Total Protein 5.4 g/dL (6.4-8.9)
[2018-08-20] MEDS: Heparin VIAL(*) 5000 UNITS/ML VIAL (FIVE THOUSAND) SUBCUT SCH ×3 (06:26→21:10)
[2018-08-20] MEDS: Docusate CAP* 100 MG PO SCH ×2 (08:00→21:09)
[2018-08-20] MEDS: Carvedilol TAB* 3.125 MG PO SCH ×2 (08:00→21:16)
[2018-08-20] MEDS: Furosemide TAB* 20 MG PO SCH (08:00)
[2018-08-20] MEDS: Lisinopril TAB* 5 MG PO SCH (08:16)
[2018-08-20] MEDS: Potassium Chlor TAB* 20 MEQ TAB.ER PO SCH ×2 (08:16→11:57)
--- NOTE | 2018-08-20 08:42 | PN ---
Subjective Date of Service: 08/20/18 Interval History: f./u systolic HF, MR - No pain currently - No dyspnea at rest - Remains sinus tachycardia low 100's on average, improved, no arrhythmias Medications Active Medications: Acetaminophen (Tylenol Tab*) 650 mg PO Q4H PRN PRN Reason: FEVER/PAIN Al Hydrox/Mg Hydrox/Simethicone (Maalox Plus*) 30 ml PO Q6H PRN PRN Reason: INDIGESTION Benzonatate (Tessalon Cap*) 100 mg PO BID PRN PRN Reason: COUGH Last Admin: 08/16/18 07:59 Dose: 100 mg Carvedilol (Coreg Tab*) 3.125 mg PO BID [facility] Last Admin: 08/20/18 08:00 Dose: 3.125 mg Docusate Sodium (Colace Cap*) 100 mg PO BID [facility] Last Admin: 08/20/18 08:00 Dose: 100 mg Furosemide (Lasix Tab*) 20 mg PO DAILY [facility] Last Admin: 08/20/18 08:00 Dose: 20 mg Heparin Sodium (Porcine) (Heparin Vial(*)) 5,000 units SUBCUT Q8HR [facility] Last Admin: 08/20/18 06:26 Dose: 5,000 units Lisinopril (Prinivil Tab*) 2.5 mg PO DAILY [facility] Last Admin: 08/20/18 08:16 Dose: 2.5 mg Morphine Sulfate (Morphine Vial*) 1 mg IV Q4H PRN PRN Reason: PAIN Last Admin: 08/19/18 03:24 Dose: 1 mg Polyvinyl Alcohol (Polyvinyl Alcohol 1.4% Opth*) 1 drop BOTH EYES Q2H PRN PRN Reason: DRY EYE Potassium Chloride (Klor Con Er Tab*) 40 meq PO Q4H [facility] Stop: 08/20/18 12:01 Last Admin: 08/20/18 08:16 Dose: 40 meq Objective Vital Signs: Temp Pulse Resp BP Pulse Ox 98.7 F 105 18 103/69 99 08/20/18 07:18 08/20/18 07:18 08/20/18 07:27 08/20/18 07:18 08/20/18 07:18 Oxygen Devices in Use Now: None Appearance: nad Eyes: PERRLA - + jaundice noted in sclera. Ears/Nose/Mouth/Throat: NL Teeth, Lips, Gums Neck: Trachea Midline, - - uncertain jvp Respiratory: Symmetrical Chest Expansion and Respiratory Effort, - - crackles R base Cardiovascular: - - tachycardic, RRR, soft systolic murmur Abdominal: - - soft, non-tender, mild distension Extremities: - - 1+ b/l edema Skin: No Rash or Ulcers Neurological: Alert and Oriented x 3 Lines/Tubes/Other Access: Clean, Dry and Intact Peripheral IV Laboratory Results: 08/18/18 05:36 08/20/18 05:00 INR (Anticoag Therapy) 1.32 (0.77-1.02) H 08/20/18 05:00 APTT 33.2 seconds (26.0-36.3) 08/15/18 21:00 Total Bilirubin 1.60 mg/dL (0.2-1.0) H 08/20/18 05:00 Direct Bilirubin 0.80 mg/dL (0.03-0.18) H 08/18/18 05:36 Indirect Bilirubin 2.6 mg/dL (0.3-1.0) H 08/18/18 05:36 AST 24 U/L (13-39) 08/20/18 05:00 ALT 23 U/L (7-52) 08/20/18 05:00 Alkaline Phosphatase 73 U/L (34-104) 08/20/18 05:00 B-Natriuretic Peptide > 1300 pg/mL (<=100) H 08/15/18 21:00 Total Protein 5.4 g/dL (6.4-8.9) L 08/20/18 05:00 Albumin 3.0 g/dL (3.2-5.2) L 08/20/18 05:00 Globulin 2.4 g/dL (2-4) 08/20/18 05:00 Albumin/Globulin Ratio 1.3 (1-3) 08/20/18 05:00 Triglycerides 57 mg/dL 08/16/18 05:19 Cholesterol 81 mg/dL 08/16/18 05:19 LDL Cholesterol 43 mg/dL 08/16/18 05:19 HDL Cholesterol 27.1 mg/dL 08/16/18 05:19 TSH 3.77 mcIU/mL (0.34-5.60) 08/15/18 21:00 08/15/18 08/16/18 21:00 00:19 Troponin I 0.02 0.02 Diagnostic Imaging: Echo 08/15/2018; LVEF 20% with moderate to severe LV dilatation and increase trabeculation. severe biatrial dilatation, severe MR, AO 4.6cm. Liver US: + ascites, + fatty liver infiltrate with borderline hepatomegaly, echogenic renal parenchyma ? medical renal disease per radiology report. EKG Data: 08/16/2018; Sinus tachycardia rate 126. LVH with repolarization abnormalities Assessment/Plan Patient admitted with with acute on chronic systolic HF and severe secondary MR (first diagnosed 2015) secondary to medication non-adherence. No evidence of an acute type 1 PA. Titrating cardiomyopathy/HF medications. Patients BP remains marginal and has compensatory tachycardia to maintain cardiac output. Would not uptitrate BB in this situation. He declines digoxin. He declines spironolactone and BP too low currently to add additional medication. K+ replaced this AM. Once compensated from a cardiac standpoint he can be discharged with plans for outpatient follow up for further evaluation and management.
[2018-08-20 13:48] LABS: Ceruloplasmin 42.4 mg/dL
--- NOTE | 2018-08-20 16:07 | PN ---
Subjective Date of Service: 08/20/18 Interval History: Pt worried about disposition.Does not have housing and reports that he lost his housing when he was in the hospital.c/o sob and phlegm Family History: Unchanged from Admission Social History: Unchanged from Admission Past Medical History: Unchanged from Admission Objective Active Medications: Acetaminophen (Tylenol Tab*) 650 mg PO Q4H PRN PRN Reason: FEVER/PAIN Al Hydrox/Mg Hydrox/Simethicone (Maalox Plus*) 30 ml PO Q6H PRN PRN Reason: INDIGESTION Benzonatate (Tessalon Cap*) 100 mg PO BID PRN PRN Reason: COUGH Last Admin: 08/16/18 07:59 Dose: 100 mg Carvedilol (Coreg Tab*) 3.125 mg PO BID [facility] Last Admin: 08/20/18 08:00 Dose: 3.125 mg Docusate Sodium (Colace Cap*) 100 mg PO BID [facility] Last Admin: 08/20/18 08:00 Dose: 100 mg Furosemide (Lasix Tab*) 20 mg PO DAILY [facility] Last Admin: 08/20/18 08:00 Dose: 20 mg Heparin Sodium (Porcine) (Heparin Vial(*)) 5,000 units SUBCUT Q8HR [facility] Last Admin: 08/20/18 14:30 Dose: 5,000 units Lisinopril (Prinivil Tab*) 2.5 mg PO DAILY [facility] Last Admin: 08/20/18 08:16 Dose: 2.5 mg Morphine Sulfate (Morphine Vial*) 1 mg IV Q4H PRN PRN Reason: PAIN Last Admin: 08/19/18 03:24 Dose: 1 mg Polyvinyl Alcohol (Polyvinyl Alcohol 1.4% Opth*) 1 drop BOTH EYES Q2H PRN PRN Reason: DRY EYE Vital Signs - 8 hr 08/20/18 08/20/18 11:14 15:28 Temperature 98.1 F 97.7 F Pulse Rate 99 107 Respiratory 16 18 Rate Blood Pressure 88/66 90/72 (mmHg) O2 Sat by Pulse 100 100 Oximetry Oxygen Devices in Use Now: None Eyes: No Scleral Icterus Ears/Nose/Mouth/Throat: NL Teeth, Lips, Gums Neck: NL Appearance and Movements; NL JVP Respiratory: Symmetrical Chest Expansion and Respiratory Effort, Clear to Auscultation Cardiovascular: NL Sounds; No Murmurs; No JVD, RRR Abdominal: NL Sounds; No Tenderness; No Distention Skin: No Rash or Ulcers Neurological: Alert and Oriented x 3 Result Diagrams: 08/18/18 05:36 08/20/18 05:00 Assess/Plan/Problems-Billing Assessment: Mr Thurston is a 42yo M with PMH of pancreatitis, who presented to ED with c/o dyspnea and LE edema, found to have new onset CHF. - Patient Problems (1) CHF (congestive heart failure) Current Visit: Yes Status: Acute Code(s): I50.9 - HEART FAILURE, UNSPECIFIED SNOMED Code(s): 58904356 Comment: - Patient has new onset CHF, with signs of Pulm HTN and RV failure. New systolic CHF with EF<20% and moderate to severe MR/TR. - Echo reviewed and Cardiology input appreciated. - Plan to continue medical management and f/u with Dr Robledo as outpatient to complete his ischemic w/u. -W/u in progress for cardiomyopathy etiology.Ferritin wnl.Checked for hemochromotosis.HIV neg.Other w/u in progress -Will also add SPEP,UPEP, Serum free light chains to eval for amyloidosis and paraproteinemia and KARY to start autoimmune w/u -Will repeat CXR with sob and phlegm to r/o infection and eval edema (2) Increased bilirubin level Current Visit: Yes Status: Acute Code(s): E80.6 - OTHER DISORDERS OF BILIRUBIN METABOLISM SNOMED Code(s): 98463350 Comment: - Likely secondary to congestive hepatopathy. - Bilirubin (mostly indirect) and INR now trending down - will give vitamin K again today. - RUQ US reviewed. - W/u negative for hemolytic anemia. - GI consult appreciated. (3) Full code status Current Visit: Yes Status: Acute Code(s): Z78.9 - OTHER SPECIFIED HEALTH STATUS SNOMED Code(s): 981439256 (4) DVT prophylaxis Current Visit: Yes Status: Acute Code(s): VYM7051 - SNOMED Code(s): 536357969 Comment: - SQ heparin. Status and Disposition: Inpatient to continue cardiac w/u and management.Multiple social problems and no current housing which pt is worried about.d/w case management.delivery sales worker eval and further plan on wednesday
[2018-08-20] MEDS ORDERED: Furosemide IV* 10 MG/ML 2 ML VIAL (20 MG) IV ONE (16:09)
[2018-08-20] MEDS ORDERED: Potassium Chlor TAB* 20 MEQ TAB.ER PO ONE (16:12)
[2018-08-20 20:27] LABS: Tissue Transglutaminase IgA Ab <1.2 U/mL
[2018-08-21 05:09] LABS: ABS Basophils 0 10^3/ul (0-0.2); ABS Eosinophils 0.1 10^3/ul (0-0.6); ABS Lymphocytes 0.9 10^3/ul (1.0-4.8); ABS Monocytes 0.5 10^3/ul (0-0.8); ABS Neutrophils 3.1 10^3/ul (1.5-7.7); ABS Nucleated RBC 0 10^3/ul; Eosinophil % 1.3 %; Hematocrit 33 % (42-52); Hemoglobin 10.7 g/dl (14.0-18.0); Lymphocyte % 19.4 %; Mean Corpuscular HGB Conc 32 g/dl (31-36); Mean Corpuscular Hemoglobin 26 pg (27-31); Mean Corpuscular Volume 82 fL (80-94); Mean Platelet Volume 7.6 fL (7.4-10.4); Nucleated Red Blood Cells % 0; Platelet Count 228 10^3/ul (150-450); Red Blood Count 4.06 10^6/ul (4.00-5.40); Red Cell Distribution Width 16 % (10.5-15); White Blood Count 4.6 10^3/ul (3.5-10.8)
[2018-08-21] MEDS: Heparin VIAL(*) 5000 UNITS/ML VIAL (FIVE THOUSAND) SUBCUT SCH ×3 (05:10→21:10)
[2018-08-21 05:29] LABS: BUN/Creatinine Ratio 18.8 (8-20); Calcium 8.1 mg/dL (8.6-10.3); EGFR African American 119.6 (>60); EGFR Non-African American 98.8 (>60); Potassium 3.6 mmol/L (3.5-5.0)
[2018-08-21] MEDS: Carvedilol TAB* 3.125 MG PO SCH ×2 (09:14→21:10)
[2018-08-21] MEDS: Docusate CAP* 100 MG PO SCH ×2 (09:14→21:09)
[2018-08-21] MEDS: Lisinopril TAB* 5 MG PO SCH (09:14)
--- NOTE | 2018-08-21 09:44 | PN ---
Subjective Date of Service: 08/21/18 Interval History: f./u systolic HF, MR - No pain currently - No dyspnea at rest - Had more IV lasix yesterday - Remains sinus tachycardia low 100's on average, no arrhythmias Medications Active Medications: Acetaminophen (Tylenol Tab*) 650 mg PO Q4H PRN PRN Reason: FEVER/PAIN Al Hydrox/Mg Hydrox/Simethicone (Maalox Plus*) 30 ml PO Q6H PRN PRN Reason: INDIGESTION Benzonatate (Tessalon Cap*) 100 mg PO BID PRN PRN Reason: COUGH Last Admin: 08/16/18 07:59 Dose: 100 mg Carvedilol (Coreg Tab*) 3.125 mg PO BID [facility] Last Admin: 08/21/18 09:14 Dose: 3.125 mg Docusate Sodium (Colace Cap*) 100 mg PO BID [facility] Last Admin: 08/21/18 09:14 Dose: Not Given Heparin Sodium (Porcine) (Heparin Vial(*)) 5,000 units SUBCUT Q8HR [facility] Last Admin: 08/21/18 05:10 Dose: 5,000 units Lisinopril (Prinivil Tab*) 2.5 mg PO DAILY [facility] Last Admin: 08/21/18 09:14 Dose: 2.5 mg Morphine Sulfate (Morphine Vial*) 1 mg IV Q4H PRN PRN Reason: PAIN Last Admin: 08/19/18 03:24 Dose: 1 mg Polyvinyl Alcohol (Polyvinyl Alcohol 1.4% Opth*) 1 drop BOTH EYES Q2H PRN PRN Reason: DRY EYE Objective Vital Signs: Temp Pulse Resp BP Pulse Ox 98.3 F 106 18 90/69 100 08/21/18 07:23 08/21/18 07:23 08/21/18 08:00 08/21/18 07:23 08/21/18 07:23 Oxygen Devices in Use Now: None Appearance: nad Eyes: PERRLA - + jaundice noted in sclera. Ears/Nose/Mouth/Throat: NL Teeth, Lips, Gums Neck: Trachea Midline, - - uncertain jvp Respiratory: Symmetrical Chest Expansion and Respiratory Effort, - - crackles left base Cardiovascular: - - tachycardic, RRR, soft systolic murmur Abdominal: - - soft, non-tender, mild distension Extremities: - - 1+ b/l edema Skin: No Rash or Ulcers Neurological: Alert and Oriented x 3 Lines/Tubes/Other Access: Clean, Dry and Intact Peripheral IV Laboratory Results: 08/21/18 04:51 08/21/18 04:51 INR (Anticoag Therapy) 1.32 (0.77-1.02) H 08/20/18 05:00 APTT 33.2 seconds (26.0-36.3) 08/15/18 21:00 Total Bilirubin 1.60 mg/dL (0.2-1.0) H 08/20/18 05:00 Direct Bilirubin 0.80 mg/dL (0.03-0.18) H 08/18/18 05:36 Indirect Bilirubin 2.6 mg/dL (0.3-1.0) H 08/18/18 05:36 AST 24 U/L (13-39) 08/20/18 05:00 ALT 23 U/L (7-52) 08/20/18 05:00 Alkaline Phosphatase 73 U/L (34-104) 08/20/18 05:00 B-Natriuretic Peptide > 1300 pg/mL (<=100) H 08/15/18 21:00 Total Protein 5.4 g/dL (6.4-8.9) L 08/20/18 05:00 Albumin 3.0 g/dL (3.2-5.2) L 08/20/18 05:00 Globulin 2.4 g/dL (2-4) 08/20/18 05:00 Albumin/Globulin Ratio 1.3 (1-3) 08/20/18 05:00 Triglycerides 57 mg/dL 08/16/18 05:19 Cholesterol 81 mg/dL 08/16/18 05:19 LDL Cholesterol 43 mg/dL 08/16/18 05:19 HDL Cholesterol 27.1 mg/dL 08/16/18 05:19 TSH 3.77 mcIU/mL (0.34-5.60) 08/15/18 21:00 08/15/18 08/16/18 21:00 00:19 Troponin I 0.02 0.02 Diagnostic Imaging: Echo 08/15/2018; LVEF 20% with moderate to severe LV dilatation and increase trabeculation. severe biatrial dilatation, severe MR, AO 4.6cm. Liver US: + ascites, + fatty liver infiltrate with borderline hepatomegaly, echogenic renal parenchyma ? medical renal disease per radiology report. EKG Data: 08/16/2018; Sinus tachycardia rate 126. LVH with repolarization abnormalities Assessment/Plan Patient admitted with with acute on chronic systolic HF and severe secondary MR (first diagnosed 2015) secondary to medication non-adherence. No evidence of an acute type 1 [place]. Titrating cardiomyopathy/HF medications. Patients BP remains marginal and has compensatory tachycardia to maintain cardiac output. Would not uptitrate BB in this situation. He declines digoxin. He declines spironolactone and BP too low currently to add additional medication. Continuing diuresis. Once compensated from a cardiac standpoint he can be discharged with plans for outpatient follow up for further evaluation and management.
[2018-08-21] MEDS ORDERED: Digoxin IV* 0.5 MG/2 ML AMP (0.25 MG/ML) IV SLOW PU ONE (10:05)
--- NOTE | 2018-08-21 11:40 | PN ---
Subjective Date of Service: 08/21/18 Interval History: Pt worried about disposition.Has nowhere to go and tells me that he lost his housing when he was in the hospital.SOB improved.Recd IV lasix yesterday Family History: Unchanged from Admission Social History: Unchanged from Admission Past Medical History: Unchanged from Admission Objective Active Medications: Acetaminophen (Tylenol Tab*) 650 mg PO Q4H PRN PRN Reason: FEVER/PAIN Al Hydrox/Mg Hydrox/Simethicone (Maalox Plus*) 30 ml PO Q6H PRN PRN Reason: INDIGESTION Benzonatate (Tessalon Cap*) 100 mg PO BID PRN PRN Reason: COUGH Last Admin: 08/16/18 07:59 Dose: 100 mg Carvedilol (Coreg Tab*) 3.125 mg PO BID [facility] Docusate Sodium (Colace Cap*) 100 mg PO BID [facility] Last Admin: 08/21/18 09:14 Dose: Not Given Heparin Sodium (Porcine) (Heparin Vial(*)) 5,000 units SUBCUT Q8HR [facility] Last Admin: 08/21/18 05:10 Dose: 5,000 units Lisinopril (Prinivil Tab*) 2.5 mg PO DAILY [facility] Last Admin: 08/21/18 09:14 Dose: 2.5 mg Morphine Sulfate (Morphine Vial*) 1 mg IV Q4H PRN PRN Reason: PAIN Last Admin: 08/19/18 03:24 Dose: 1 mg Polyvinyl Alcohol (Polyvinyl Alcohol 1.4% Opth*) 1 drop BOTH EYES Q2H PRN PRN Reason: DRY EYE Vital Signs - 8 hr 08/21/18 08/21/18 08/21/18 07:23 08:00 11:08 Temperature 98.3 F Pulse Rate 106 109 Respiratory 17 18 Rate Blood Pressure 90/69 (mmHg) O2 Sat by Pulse 100 Oximetry Oxygen Devices in Use Now: None Eyes: No Scleral Icterus Ears/Nose/Mouth/Throat: NL Teeth, Lips, Gums Neck: NL Appearance and Movements; NL JVP Respiratory: Symmetrical Chest Expansion and Respiratory Effort, Clear to Auscultation Cardiovascular: NL Sounds; No Murmurs; No JVD, No Edema Extremities: No Edema Neurological: Alert and Oriented x 3 Result Diagrams: 08/21/18 04:51 08/21/18 04:51 Assess/Plan/Problems-Billing Assessment: Mr Thurston is a 42yo M with PMH of pancreatitis, who presented to ED with c/o dyspnea and LE edema, found to have new onset CHF. - Patient Problems (1) CHF (congestive heart failure) Current Visit: Yes Status: Acute Code(s): I50.9 - HEART FAILURE, UNSPECIFIED SNOMED Code(s): 01829975 Comment: - Patient has new onset CHF, with signs of Pulm HTN and RV failure. New systolic CHF with EF<20% and moderate to severe MR/TR. - Echo reviewed and Cardiology input appreciated. - Plan to continue medical management and f/u with Dr Robledo as outpatient to complete his ischemic w/u. -W/u in progress for cardiomyopathy etiology.Ferritin wnl.Checked for hemochromotosis.HIV neg.Other w/u in progress -Will also add SPEP,UPEP, Serum free light chains to eval for amyloidosis and paraproteinemia and KARY to start autoimmune w/u -CXR yesterday showing dilated cardiomyopathy, some pleural effusion( reviewed not large to tap) -Continue lasix (2) Increased bilirubin level Current Visit: Yes Status: Acute Code(s): E80.6 - OTHER DISORDERS OF BILIRUBIN METABOLISM SNOMED Code(s): 53753766 Comment: - Likely secondary to congestive hepatopathy. - Bilirubin (mostly indirect) and INR now trending down - Recd Vitamin K. - RUQ US reviewed. - W/u negative for hemolytic anemia. - GI consult appreciated. (3) Full code status Current Visit: Yes Status: Acute Code(s): Z78.9 - OTHER SPECIFIED HEALTH STATUS SNOMED Code(s): 716051796 (4) DVT prophylaxis Current Visit: Yes Status: Acute Code(s): LPH0526 - SNOMED Code(s): 809184914 Comment: - SQ heparin. (5) Hypokalemia Current Visit: Yes Status: Acute Code(s): E87.6 - HYPOKALEMIA SNOMED Code( s): 74190344 Comment: replaced yesterday Status and Disposition: Inpatient to continue cardiac w/u and management.Multiple social problems and no current housing which pt is worried about.d/w case management.tar pot worker eval and further plan on wednesday
[2018-08-21] MEDS: Furosemide TAB* 20 MG PO SCH (12:46)
[2018-08-22] MEDS: Heparin VIAL(*) 5000 UNITS/ML VIAL (FIVE THOUSAND) SUBCUT SCH ×3 (05:12→21:05)
[2018-08-22 05:30] LABS: ABS Basophils 0 10^3/ul (0-0.2); ABS Eosinophils 0.1 10^3/ul (0-0.6); ABS Lymphocytes 0.8 10^3/ul (1.0-4.8); ABS Monocytes 0.5 10^3/ul (0-0.8); ABS Neutrophils 3.3 10^3/ul (1.5-7.7); ABS Nucleated RBC 0 10^3/ul; Eosinophil % 1.7 %; Hematocrit 36 % (42-52); Hemoglobin 11.4 g/dl (14.0-18.0); Lymphocyte % 17.6 %; Mean Corpuscular HGB Conc 32 g/dl (31-36); Mean Corpuscular Hemoglobin 26 pg (27-31); Mean Corpuscular Volume 82 fL (80-94); Mean Platelet Volume 7.4 fL (7.4-10.4); Nucleated Red Blood Cells % 0; Platelet Count 252 10^3/ul (150-450); Red Blood Count 4.35 10^6/ul (4.00-5.40); Red Cell Distribution Width 15 % (10.5-15); White Blood Count 4.7 10^3/ul (3.5-10.8)
[2018-08-22 05:37] LABS: INR 1.09 (0.77-1.02)
[2018-08-22 05:48] LABS: BUN/Creatinine Ratio 16.3 (8-20); EGFR African American 128.3 (>60); Potassium 3.5 mmol/L (3.5-5.0)
[2018-08-22] MEDS: Lisinopril TAB* 5 MG PO SCH (08:17)
[2018-08-22] MEDS: Furosemide TAB* 20 MG PO SCH (08:17)
[2018-08-22] MEDS: Docusate CAP* 100 MG PO SCH ×2 (08:17→21:05)
[2018-08-22] MEDS: Carvedilol TAB* 3.125 MG PO SCH ×2 (08:17→21:05)
--- NOTE | 2018-08-22 08:48 | PN ---
Subjective Date of Service: 08/22/18 Interval History: Patient seen and examined at bedside. Denies fever, chills, shortness of breath , chest discomfort, N/V/D. He is very anxious about his discharge plans as he is currently homeless. Tele: Sinus tach, rate 100's Family History: Unchanged from Admission Social History: Unchanged from Admission Past Medical History: Unchanged from Admission Objective Active Medications: Acetaminophen (Tylenol Tab*) 650 mg PO Q4H PRN Reason: FEVER/PAIN Al Hydrox/Mg Hydrox/Simethicone (Maalox Plus*) 30 ml PO Q6H PRN Reason: INDIGESTION Benzonatate (Tessalon Cap*) 100 mg PO BID PRN Reason: COUGH Carvedilol (Coreg Tab*) 3.125 mg PO BID [facility] Docusate Sodium (Colace Cap*) 100 mg PO BID [facility] Furosemide (Lasix Tab*) 20 mg PO DAILY [facility] Heparin Sodium (Porcine) (Heparin Vial(*)) 5,000 units SUBCUT Q8HR [facility] Lisinopril (Prinivil Tab*) 2.5 mg PO DAILY [facility] Morphine Sulfate (Morphine Vial*) 1 mg IV Q4H PRN Reason: PAIN Polyvinyl Alcohol (Polyvinyl Alcohol 1.4% Opth*) 1 drop BOTH EYES Q2H PRN Reason: DRY EYE Vital Signs - 8 hr 08/22/18 08/22/18 03:34 07:26 Temperature 98.2 F Pulse Rate 104 Respiratory 16 20 Rate Blood Pressure 89/60 (mmHg) O2 Sat by Pulse 100 Oximetry Oxygen Devices in Use Now: None Appearance: NAD, sitting up on the side of the bed. Ears/Nose/Mouth/Throat: Mucous Membranes Moist Respiratory: Symmetrical Chest Expansion and Respiratory Effort, Clear to Auscultation Cardiovascular: NL Sounds; No Murmurs; No JVD, RRR Abdominal: NL Sounds; No Tenderness; No Distention Extremities: - - 1-2+ bilateral LE edema Skin: No Rash or Ulcers Neurological: Alert and Oriented x 3, NL Muscle Strength and Tone Lines/Tubes/Other Access: Clean, Dry and Intact Peripheral IV - site benign Nutrition: Taking PO's Result Diagrams: 08/22/18 05:08 08/23/18 08:06 Assess/Plan/Problems-Billing Assessment: Mr. Thurston is a 42yo M with PMH of pancreatitis, who presented to ED with c/o dyspnea and LE edema, found to have new onset CHF. - Patient Problems (1) CHF (congestive heart failure) Code(s): I50.9 - HEART FAILURE, UNSPECIFIED SNOMED Code(s): 09544935 Comment: - Acute/New onset, improving - with signs of Pulm HTN and RV failure - Echo - Systolic CHF with EF<20% and moderate to severe MR/TR - Cardiology input, appreciated - Plan to continue medical management and f/u with Dr Robledo as outpatient to complete his ischemic workup - Workup in progress for cardiomyopathy etiology, checked for hemochromotosis, HIV neg - Will also add SPEP,UPEP, Serum free light chains to eval for amyloidosis and paraproteinemia and KARY to start autoimmune w/u - CXR 08/20/18 showing dilated cardiomyopathy, some pleural effusion (not large enough to tap) - Continue lasix (2) Increased bilirubin level Current Visit: Yes Status: Acute Code(s): E80.6 - OTHER DISORDERS OF BILIRUBIN METABOLISM SNOMED Code(s): 44593399 Comment: - Likely secondary to congestive hepatopathy. - Bilirubin (mostly indirect) and INR now trending down, received Vitamin K. - RUQ US reviewed. - W/u negative for hemolytic anemia. - GI consult appreciated. (3) Hypokalemia Code(s): E87.6 - HYPOKALEMIA SNOMED Code(s): 86641293 Comment: - K+ 3.5 - Goal <4 - Given replacement today - Recheck labs in the AM (4) Hypomagnesemia Code(s): E83.42 - HYPOMAGNESEMIA SNOMED Code(s): 036681267 Comment: - Ordered replacement (Pt declining at this time) - Recheck labs in the AM (5) DVT prophylaxis Code(s): BEJ3141 - SNOMED Code(s): 672525013 Comment: - SQ heparin (6) Full code status Code(s): Z78.9 - OTHER SPECIFIED HEALTH STATUS SNOMED Code(s): 648285373 Status and Disposition: Inpatient, continue cardiac w/u and management. Multiple social problems and no current housing which pt is worried about. Will discuss with case management and Angle Roll Operator today. Attending: Tre Kline
[2018-08-22] MEDS ORDERED: Potassium Chlor TAB* 20 MEQ TAB.ER PO ONE (08:49)
[2018-08-22 09:13] LABS: Magnesium 1.8 mg/dL (1.9-2.7)
[2018-08-22] MEDS ORDERED: Magnesium Sulfate 2 GM IV* 2 GM/50 ML BAG IVPB ONE (11:51)
[2018-08-22 12:30] LABS: Mitochondria M2 Antibody <0.1 U
[2018-08-22 15:12] LABS: Smooth Muscle Antibody Negative (Negative)
[2018-08-22 16:32] LABS: Immunoglobulin A 126 mg/dL (61 - 356)
[2018-08-22 17:56] LABS: Alpha 1 Antitrypsin A1A 176 mg/dL (100 - 190)
[2018-08-22] MEDS ORDERED: Magnesium Oxide TAB* 400 MG PO ONE (18:46)
[2018-08-23] MEDS: Heparin VIAL(*) 5000 UNITS/ML VIAL (FIVE THOUSAND) SUBCUT SCH ×3 (05:49→22:28)
[2018-08-23 08:49] LABS: BUN/Creatinine Ratio 12.2 (8-20); Calcium 8.1 mg/dL (8.6-10.3); EGFR African American 140.3 (>60); Magnesium 1.9 mg/dL (1.9-2.7); Potassium 3.8 mmol/L (3.5-5.0)
[2018-08-23] MEDS: Lisinopril TAB* 5 MG PO SCH (09:23)
[2018-08-23] MEDS: Furosemide TAB* 20 MG PO SCH (09:24)
[2018-08-23] MEDS: Magnesium Oxide TAB* 400 MG PO SCH (09:24)
[2018-08-23] MEDS: Docusate CAP* 100 MG PO SCH ×2 (09:24→22:32)
[2018-08-23] MEDS: Carvedilol TAB* 3.125 MG PO SCH ×2 (09:25→22:28)
--- NOTE | 2018-08-23 14:49 | PN ---
Subjective Date of Service: 08/23/18 Interval History: Patient seen and examined at bedside. Denies fever, chills, shortness of breath , chest discomfort. He feels that his LE edema is improving. There are some concern on the patient's ability to manage his life vest and medications at home. Discussed with him that he needs to wear his life vest today and into the morning to demonstrate that he is able to manage it. Dung also reports that he doesn't have a place to live and is unable to afford his medications. I have asked social work to see him. There is also concern on if he will have someone to be near by when he is taking a shower in case there is an event. Tele: Sinus arrhythmia, rate 60-70's Family History: Unchanged from Admission Social History: Unchanged from Admission Past Medical History: Unchanged from Admission Objective Active Medications: Acetaminophen (Tylenol Tab*) 650 mg PO Q4H PRN Reason: FEVER/PAIN Al Hydrox/Mg Hydrox/Simethicone (Maalox Plus*) 30 ml PO Q6H PRN Reason: INDIGESTION Benzonatate (Tessalon Cap*) 100 mg PO BID PRN Reason: COUGH Carvedilol (Coreg Tab*) 3.125 mg PO BID NORY Docusate Sodium (Colace Cap*) 100 mg PO BID NORY Furosemide (Lasix Tab*) 20 mg PO DAILY NORY Heparin Sodium (Porcine) (Heparin Vial(*)) 5,000 units SUBCUT Q8HR NORY Lisinopril (Prinivil Tab*) 2.5 mg PO DAILY NORY Magnesium Oxide (Magox 400 Tab*) 800 mg PO DAILY NORY Morphine Sulfate (Morphine Vial*) 1 mg IV Q4H PRN Reason: PAIN Polyvinyl Alcohol (Polyvinyl Alcohol 1.4% Opth*) 1 drop BOTH EYES Q2H PRN Reason: DRY EYE Vital Signs - 8 hr 08/23/18 08/23/18 08/23/18 07:28 08:00 11:32 Temperature 98.1 F 97.8 F Pulse Rate 111 105 Respiratory 18 18 18 Rate Blood Pressure 91/66 101/69 (mmHg) O2 Sat by Pulse 100 100 Oximetry Oxygen Devices in Use Now: None Appearance: NAD, sitting up on the side of the bed Ears/Nose/Mouth/Throat: Mucous Membranes Moist Respiratory: Symmetrical Chest Expansion and Respiratory Effort, Clear to Auscultation - , clear Cardiovascular: NL Sounds; No Murmurs; No JVD, RRR Abdominal: NL Sounds; No Tenderness; No Distention Extremities: - - Trace to 1+ bilateral LE edema Skin: No Rash or Ulcers Neurological: Alert and Oriented x 3, NL Muscle Strength and Tone Lines/Tubes/Other Access: Clean, Dry and Intact Peripheral IV - site benign Nutrition: Taking PO's Result Diagrams: 08/22/18 05:08 08/23/18 08:06 Assess/Plan/Problems-Billing Assessment: Mr. Thurston is a 42yo M with PMH of pancreatitis, who presented to ED with c/o dyspnea and LE edema, found to have new onset CHF. - Patient Problems (1) CHF (congestive heart failure) Code(s): I50.9 - HEART FAILURE, UNSPECIFIED SNOMED Code(s): 76429347 Comment: - Acute/New onset, improving - with signs of Pulm HTN and RV failure - Echo - Systolic CHF with EF<20% and moderate to severe MR/TR - Cardiology input, appreciated - Plan to continue medical management and f/u with Dr Robledo as outpatient to complete his ischemic workup - Workup in progress for cardiomyopathy etiology, checked for hemochromotosis, HIV neg - Will also add SPEP,UPEP, Serum free light chains to eval for amyloidosis and paraproteinemia and KARY to start autoimmune w/u - CXR 08/20/18 showing dilated cardiomyopathy, some pleural effusion (not large enough to tap) - Continue lasix (2) Increased bilirubin level Current Visit: Yes Status: Acute Code(s): E80.6 - OTHER DISORDERS OF BILIRUBIN METABOLISM SNOMED Code(s): 79810881 Comment: - Likely secondary to congestive hepatopathy. - Bilirubin (mostly indirect) and INR now trending down, received Vitamin K. - RUQ US reviewed. - W/u negative for hemolytic anemia. - GI consult appreciated. (3) Hypokalemia Code(s): E87.6 - HYPOKALEMIA SNOMED Code(s): 56923690 Comment: - K+ 3.8 - Goal <4 - Given replacement today - Recheck labs in the AM (4) Hypomagnesemia Code(s): E83.42 - HYPOMAGNESEMIA SNOMED Code(s): 978712670 Comment: - MG+ 1.9 today - Recheck labs in the AM - Continue to Daily magnesium replacement (5) DVT prophylaxis Code(s): RRC1041 - SNOMED Code(s): 162209705 Comment: - SQ heparin (6) Full code status Code(s): Z78.9 - OTHER SPECIFIED HEALTH STATUS SNOMED Code(s): 731464241 Status and Disposition: Inpatient. Plan for discharge in the AM if he is able to demonstrate ability to care for life vest. If he is unable to care for life vest he may require rehab while he has a life vest. Attending: Tre Kline
[2018-08-23 19:25] LABS: Kappa Free Light Chain 2.32 mg/dL; Lambda Free Light Chain 1.57 mg/dL
[2018-08-24] MEDS: Heparin VIAL(*) 5000 UNITS/ML VIAL (FIVE THOUSAND) SUBCUT SCH ×3 (05:18→21:51)
[2018-08-24 05:32] LABS: Calcium 8.3 mg/dL (8.6-10.3); Magnesium 1.9 mg/dL (1.9-2.7); Potassium 3.9 mmol/L (3.5-5.0)
[2018-08-24 05:37] LABS: BUN/Creatinine Ratio 11.5 (8-20); EGFR African American 132.1 (>60); EGFR Non-African American 109.2 (>60)
[2018-08-24] MEDS: Carvedilol TAB* 3.125 MG PO SCH ×2 (10:59→21:50)
[2018-08-24] MEDS: Magnesium Oxide TAB* 400 MG PO SCH (10:59)
[2018-08-24] MEDS: Lisinopril TAB* 5 MG PO SCH (10:59)
[2018-08-24] MEDS: Furosemide TAB* 20 MG PO SCH (10:59)
[2018-08-24] MEDS: Docusate CAP* 100 MG PO SCH ×2 (11:02→21:46)
[2018-08-24 13:18] LABS: Albumin 2.3 g/dL (3.4-4.7); Albumin/Globulin Ratio 0.77; Total Protein(PEP) 5.2 g/dL (6.3 - 7.9)
[2018-08-24 14:20] LABS: Variant Hemoglobin 38.8 = Hb S %
--- NOTE | 2018-08-24 15:26 | PN ---
Subjective Date of Service: 08/24/18 Interval History: Patient is still concerned about his LE edema. Patient still has very poor understanding of his disease process. Patient did not wear his life vest overnight but states he will now. Patient denies CP, SOB, F/C, N/B, dizziness, palpitations, presyncope, or other pain. Discussed disease process again with patient and they seemed as if it was all new information to him. Family History: Unchanged from Admission Social History: Unchanged from Admission Past Medical History: Unchanged from Admission Objective Active Medications: Acetaminophen (Tylenol Tab*) 650 mg PO Q4H PRN PRN Reason: FEVER/PAIN Al Hydrox/Mg Hydrox/Simethicone (Maalox Plus*) 30 ml PO Q6H PRN PRN Reason: INDIGESTION Benzonatate (Tessalon Cap*) 100 mg PO BID PRN PRN Reason: COUGH Last Admin: 08/16/18 07:59 Dose: 100 mg Carvedilol (Coreg Tab*) 3.125 mg PO BID [facility] Last Admin: 08/24/18 10:59 Dose: 3.125 mg Docusate Sodium (Colace Cap*) 100 mg PO BID [facility] Last Admin: 08/24/18 11:02 Dose: Not Given Furosemide (Lasix Tab*) 20 mg PO DAILY [facility] Last Admin: 08/24/18 10:59 Dose: 20 mg Heparin Sodium (Porcine) (Heparin Vial(*)) 5,000 units SUBCUT Q8HR [facility] Last Admin: 08/24/18 15:07 Dose: 5,000 units Lisinopril (Prinivil Tab*) 2.5 mg PO DAILY [facility] Last Admin: 08/24/18 10:59 Dose: 2.5 mg Magnesium Oxide (Magox 400 Tab*) 800 mg PO DAILY [facility] Last Admin: 08/24/18 10:59 Dose: 800 mg Morphine Sulfate (Morphine Vial*) 1 mg IV Q4H PRN PRN Reason: PAIN Last Admin: 08/19/18 03:24 Dose: 1 mg Polyvinyl Alcohol (Polyvinyl Alcohol 1.4% Opth*) 1 drop BOTH EYES Q2H PRN PRN Reason: DRY EYE Vital Signs - 8 hr 08/24/18 08/24/18 08/24/18 07:34 08:00 11:32 Temperature 97.7 F 97.5 F Pulse Rate 120 112 Respiratory 20 18 24 Rate Blood Pressure 101/70 101/73 (mmHg) O2 Sat by Pulse 100 100 Oximetry Oxygen Devices in Use Now: None Appearance: Patient is a 42yo male who appears stated age and is sitting in the bed in NAD. Eyes: No Scleral Icterus, PERRLA Ears/Nose/Mouth/Throat: NL Teeth, Lips, Gums, Clear Oropharnyx, Mucous Membranes Moist Neck: NL Appearance and Movements; NL JVP, Trachea Midline Respiratory: Symmetrical Chest Expansion and Respiratory Effort, Clear to Auscultation Cardiovascular: NL Sounds; No Murmurs; No JVD, No Edema, - - Tachycardia Abdominal: NL Sounds; No Tenderness; No Distention, No Hepatosplenomegaly Lymphatic: No Cervical Adenopathy Extremities: No Edema, No Clubbing, Cyanosis Skin: No Rash or Ulcers, No Nodules or Sclerosis Neurological: Alert and Oriented x 3, NL Sensation, NL Muscle Strength and Tone , - - CN II-XII intact. Result Diagrams: 08/22/18 05:08 08/24/18 05:10 Assess/Plan/Problems-Billing Assessment: Mr. Thurston is a 42yo M with PMH of pancreatitis and Cardiomyopathy, who presented to ED with c/o dyspnea and LE edema, found to have CHF exacerbation and a low EF of 20% - Patient Problems (1) CHF (congestive heart failure) Current Visit: Yes Status: Acute Code(s): I50.9 - HEART FAILURE, UNSPECIFIED SNOMED Code(s): 99713771 Comment: - Acute exacerbation improving - with signs of Pulm HTN and RV failure - Echo - Systolic CHF with EF<20% and moderate to severe MR/TR - Cardiology input, appreciated - Plan to continue medical management and f/u with Dr Robledo as outpatient to complete his ischemic workup - Workup in progress for cardiomyopathy etiology, checked for hemochromotosis, HIV neg - SPEP Unremarkable - Serum free light chains slightly elevated - Autoimmune workup negative - Continue lasix, Coreg, Lisinopril - Refuses Spironolactone and BP would not tolerate Entresto - Eval overnight again for compliance with Lifevest and D/C in AM. (2) Hypokalemia Current Visit: Yes Status: Acute Code(s): E87.6 - HYPOKALEMIA SNOMED Code( s): 54044346 Comment: - K+ 3.8 - Daily supplementation - Recheck labs in the AM (3) Hypomagnesemia Current Visit: Yes Status: Acute Code(s): E83.42 - HYPOMAGNESEMIA SNOMED Code(s): 788886216 Comment: - MG+ 1.9 today - Recheck labs in the AM - Continue to Daily magnesium replacement (4) Increased bilirubin level Current Visit: Yes Status: Acute Code(s): E80.6 - OTHER DISORDERS OF BILIRUBIN METABOLISM SNOMED Code(s): 63633332 Comment: - Likely secondary to congestive hepatopathy. - Bilirubin (mostly indirect) and INR now trending down, received Vitamin K. - RUQ US reviewed. - W/u negative for hemolytic anemia. - GI consult appreciated. (5) Sickle cell trait Current Visit: Yes Status: Acute Code(s): D57.3 - SICKLE-CELL TRAIT SNOMED Code(s): 84438388 Comment: - Found on hemoglobin electrophoresis - Possibly contributing to indirect hyperbilirubinemia. (6) DVT prophylaxis Current Visit: Yes Status: Acute Code(s): XFZ3523 - SNOMED Code(s): 971354839 Comment: - SQ heparin (7) Full code status Current Visit: Yes Status: Acute Code(s): Z78.9 - OTHER SPECIFIED HEALTH STATUS SNOMED Code(s): 011862983 Status and Disposition: Inpatient. Will D/C In AM with DSS and [facility] referrals.
[2018-08-24] MEDS: oxyCODONE/Acetamin 5/325 MG* TAB PO PRN (20:06)
[2018-08-24] MEDS ORDERED: Morphine VIAL* 4 MG/ML VIAL (1 ml vial) IV ONE (23:43)
[2018-08-25] MEDS: Heparin VIAL(*) 5000 UNITS/ML VIAL (FIVE THOUSAND) SUBCUT SCH (05:20)
[2018-08-25 05:37] LABS: ABS Basophils 0 10^3/ul (0-0.2); ABS Eosinophils 0.1 10^3/ul (0-0.6); ABS Lymphocytes 1.1 10^3/ul (1.0-4.8); ABS Monocytes 0.6 10^3/ul (0-0.8); ABS Neutrophils 2.9 10^3/ul (1.5-7.7); ABS Nucleated RBC 0 10^3/ul; Eosinophil % 1.5 %; Hematocrit 32 % (42-52); Hemoglobin 10.1 g/dl (14.0-18.0); Lymphocyte % 24.2 %; Mean Corpuscular HGB Conc 32 g/dl (31-36); Mean Corpuscular Hemoglobin 26 pg (27-31); Mean Corpuscular Volume 81 fL (80-94); Nucleated Red Blood Cells % 0; Platelet Count 266 10^3/ul (150-450); Red Blood Count 3.86 10^6/ul (4.00-5.40); Red Cell Distribution Width 16 % (10.5-15); White Blood Count 4.7 10^3/ul (3.5-10.8)
[2018-08-25 05:59] LABS: BUN/Creatinine Ratio 14.6 (8-20); Calcium 8.6 mg/dL (8.6-10.3); EGFR African American 124.7 (>60); Potassium 4.5 mmol/L (3.5-5.0)
[2018-08-25] MEDS: Magnesium Oxide TAB* 400 MG PO SCH (08:25)
[2018-08-25] MEDS: Furosemide TAB* 20 MG PO SCH (08:25)
[2018-08-25] MEDS: Carvedilol TAB* 3.125 MG PO SCH (08:25)
[2018-08-25] MEDS: Lisinopril TAB* 5 MG PO SCH (08:25)
[2018-08-25] MEDS: Docusate CAP* 100 MG PO SCH (08:27)
[2018-08-25] MEDS ORDERED: Potassium Chlor TAB* 10 MEQ TAB.ER PO SCH (09:00)
[2018-08-25] MEDS: oxyCODONE/Acetamin 5/325 MG* TAB PO PRN (10:48)
[2018-08-25 12:26] VITALS: BP 92/74
[2018-08-25 15:20] LABS: Total Protein(PEP) Urine 4 mg/dL
--- NOTE | 2018-08-25 21:46 | DS ---
CC: [facility]; Dr. Boris Robledo * DISCHARGE SUMMARY: DATE OF ADMISSION: 08/15/18 DATE OF DISCHARGE: 08/25/18 PRIMARY CARE PROVIDER: Dmitry Manuel. OUTPATIENT FASTENER TECHNOLOGIST: Dr. Boris Robledo. MY ATTENDING WHILE IN THE HOSPITAL: Dr. Maris Palacios.* (DICTATED BY AMOS WYATT) PRIMARY DISCHARGE DIAGNOSES: 1. Congestive heart failure exacerbation. 2. Severe cardiomyopathy of unknown etiology, EF less than 20%. 3. Trochanteric bursitis. 4. Congestive hepatopathy. 5. Sickle cell trait. 6. Pulmonary nodules. SECONDARY DISCHARGE DIAGNOSIS: History of pancreatitis. MEDICATIONS AT DISCHARGE: 1. Tylenol 650 mg p.o. q.4 hours as needed. 2. Artificial Tears 1 drop both eyes q.2 hours as needed. 3. Carvedilol 3.125 mg p.o. b.i.d. 4. Docusate 100 mg p.o. b.i.d. 5. Furosemide 20 mg p.o. daily. 6. Lisinopril 2.5 mg p.o. daily. 7. Magnesium oxide 800 mg p.o. daily. 8. Percocet 5/325 1 tab p.o. q.8 hours as needed. 9. Potassium chloride 10 mEq p.o. daily. STUDIES DONE WHILE IN THE HOSPITAL: Chest x-ray from 08/15/18 read as marked cardiomegaly without definite pneumonia. Electrocardiogram from 08/15/18 read as sinus tachycardia, rate of 128, inverted T waves in I, V5, and V6; flattened T-wave in V4, left axis deviation, marked left atrial enlargement, possible left ventricular hypertrophy, QTc 511, rate of 128. Early repolarization in V3. No ST segment abnormalities. Repeat EKG from 08/15/18 shows poor quality study, no significant changes. Repeat EKG from 08/16/18 read as no significant changes, persistently prolonged QT. Chest thorax CTA from 08/15/18 read as no pulmonary emboli, dilated main pulmonary artery measuring up to 3.3 cm in transverse diameter maybe due to pulmonary artery hypertension, marked cardiomegaly with evidence of right cardiac dysfunction, [id number] right pleural effusion with compressive atelectasis, multiple centrilobular nodules in the superior segment of the right lower lobe which may be due to an infectious etiology. Transthoracic echocardiogram from 08/16/18 read as no left ventricular hypertrophy. There is diffuse global hypokinesis of the left ventricle, severely decreased left ventricular systolic function, estimated ejection fraction less than 20%, right ventricular global systolic function is mildly reduced. There is trace of aortic regurgitation. There is lhqpzilm-la-maersr mitral regurgitation. Mitral regurgitation jet is centrally directed. There is elylhaui-il-yhzsts tricuspid regurgitation. Right ventricular systolic pressure is estimated at 51 mmHg. There is evidence of moderate pulmonary hypertension. Trivial pericardial effusion is visualized. Abdomen ultrasound from 08/18/18 read as echogenic liver cirrhosis with fatty infiltration with borderline hepatomegaly. Echogenic renal parenchyma suggestive of medical renal disease, ascites. Chest x-ray from 08/20/18 read as chest x-ray findings are consistent with dilated cardiomyopathy with subsequent pulmonary vascular hypertension and pleural effusion. HOSPITAL COURSE: This is a brief summary of the patient's presentation. For more details, please see the history and physical from Dr. Rae Cedeno on . In brief, the patient is a 42-year-old male with past medical history significant before this hospitalization only for pancreatitis, which he was [facility]. At that time, he was also diagnosed with significant cardiomyopathy and appears he was diagnosed with myocarditis at that time and he did not follow with Cardiology or primary care since that time and had very poor understanding of his disease process. The patient was initially aggressively diuresed and then started on Lasix orally as well as lisinopril and carvedilol. These medications were kept low dose due to his borderline low blood pressure. The patient had hemochromatosis ruled out. The patient had Quoc's disease ruled out. The patient had hemoglobin fractionation , which showed sickle cell trait. The patient had a mildly elevated kappa light chain, this was discussed with Hematology/Oncology and not deemed significant to contribute to amyloid deposition disease or other such infiltrative disease. The patient on admission had mildly elevated liver enzymes. The patient had negative HIV test and negative hepatitis testing. The patient on admission had an elevated indirect bilirubin greater than direct bilirubin with his peak bilirubin being at 3.4 on 08/16/18. The patient was seen in consultation by Dr. Boris Robledo of Cardiology, who recommended maximum medical therapy, ischemic evaluation non-urgently and followup outpatient. The patient stated that spironolactone made his eyes dry and refused this medication. The patient had no troponin elevation while he was in the hospital. The patient's LDL was excellent at 43. The patient had an elevated INR. Due to patient's elevated INR and liver enzymes, the patient was seen in consultation by Dr. Koffi Rosa of Gastroenterology/Hepatology, who believed this was due to congestive hepatopathy and recommended workup for other causes of hepatitis, all of which were negative including autoimmune and the above infiltrative studies. The patient's INR was elevated. He was given vitamin K and this normalized. The patient's bilirubin also trended down with diuresis. The patient had abdominal ultrasound as above. The patient in the hospital was provided with a [employer] LifeVest due to his risk of V-tach and was observed while in the hospital. The patient was initially resistant to wearing his LifeVest. The patient was seen in consultation by Dr. Artur Colvin of Psychiatry due to his very poor understanding of his disease process and his repeated desire to leave against medical advice. The patient was deemed not to have insight into his disease and was deemed not to have capacity to leave AMA. The patient lost only 4 pounds throughout his hospitalization but felt better and had no return to his baseline respiratory status. During his hospitalization, he was also evaluated for hemolysis with a normal LDH. The patient finally on the day of his discharge, 08/25/18, appeared to be understanding more fully his disease process and was able to tolerate wearing his LifeVest for the peer health promoter prior to his discharge. The patient on the day of discharge developed sudden onset aching pain in his right hip, worse with movement, nonexistent at rest, reproducible with palpation consistent with trochanteric bursitis. Given patient's heart failure and listed allergy to NSAIDs, this was treated adequately with Percocet. The patient was stable and amenable for discharge on 08/25/18. PHYSICAL EXAM ON THE DAY OF DISCHARGE: General: The patient is a 42-year-old male, who appears stated age, sitting comfortably in bed, in no acute distress. Vital signs at the time of discharge: Temperature 97.6, pulse rate 110, respiratory rate of 20, oxygen saturation 100% on room air, blood pressure 92/ 74. HEENT: Head normocephalic, atraumatic. Sclerae anicteric. No conjunctival injection. Nasal mucosa moist. Oral mucosa moist. No pharyngeal erythema, discharge, or exudate. Neck: Supple, nontender. No lymphadenopathy. No carotid bruits auscultated. No JVD. Cardiac: Tachycardic. No murmurs. Clear S3 heard. 2+ bilateral lower extremity edema noted. Bilateral calf tenderness. Respiratory: Clear to auscultation bilaterally. No wheezes, rhonchi. Good air exchange bilaterally. Abdomen: Soft, nontender, nondistended. Bowel sounds present, normoactive in all 4 quadrants. No hepatospleno-megaly. No abdominal bruits auscultated. No hepatojugular reflux. Genitourinary: No suprapubic or CVA tenderness. Skin: Clean, dry, intact. No rash. Neuro: Cranial nerves II through XII are intact. No focal deficits. Alert and oriented x3. Psychiatric: Very pleasant and cooperative. LABORATORY DATA ON THE DAY OF DISCHARGE: White blood cell count 4.7, hemoglobin 10.1, MCH 26, RDW 16. Sodium 137, potassium 4.5, chloride 107, carbon dioxide 27, anion gap 3, BUN 12, creatinine 0.82. Glucose 108, magnesium 2.0, calcium 8.6. DISCHARGE PLAN: The patient will be discharged to home. The patient is planning on moving to [facility] and needs emergency housing assistance. This process has been explained to him and he will follow up with DSS today. The patient will follow up with Dr. Boris Robledo of Cardiology tomorrow as outpatient. The patient's friend will transport him to this appointment. The patient will continue with an ischemic workup at that point. The patient should be continued on his lisinopril, Coreg and Lasix at this time. The patient still appears slightly fluid overloaded but is not having a respiratory distress while in the hospital. The patient's blood pressure is marginally low and his medications were not able to be titrated up further. While in the hospital, the patient will have visiting nurse services for medication help as well as monitoring of his blood pressure. The patient should wear his LifeVest at all times. The patient was instructed in the care and use of his LifeVest. The patient should follow up with [facility] within 1 week for general medical management. The patient has sickle cell trait and appears to have iron-deficiency anemia. Consideration should be made for starting the patient on iron supplementation. The patient should follow up with Dr. Koffi Rosa of Gastroenterology in 1 month for further evaluation of his LFT abnormalities if indicated by persistent LFT abnormalities on outpatient lab work. The patient should have a repeat CBC and CMP within 1 week to evaluate kidney function and anemia. The patient should have a heart-healthy diet without caffeine. Engage in activities as tolerated. The patient will be out of work until cleared by his primary care provider. The patient should return to the hospital for chest pain, severe shortness of breath, passing out or other alarming symptoms. TIME SPENT: Approximately 75 minutes were spent on the discharge of this patient, 45 minutes of which was spent [id number] with the patient and his friend obtaining history and physical and discussing treatment plan. AMOS WYATT [id number]/CPS #: [id number] MTDD
== END 2018-08-25 14:10 | disposition home or self-care (01) | DRG 194 ==
LOC: ED 19:20 → MEDTELE 08-16 03:35 → OBSVTOIN 08-16 11:49
PROVIDERS: ADMIT Pediatrics; ATTEND Internal Medicine
DX: I50.23 Acute on chronic systolic (congestive) heart failure (principal); I42.9 Cardiomyopathy, unspecified; R18.8 Other ascites; J98.11 Atelectasis; I27.20 Pulmonary hypertension, unspecified; R00.0 Tachycardia, unspecified; R91.8 Other nonspecific abnormal finding of lung field; K76.0 Fatty (change of) liver, not elsewhere classified; R11.0 Nausea; I50.810 Right heart failure, unspecified; E87.6 Hypokalemia; E83.42 Hypomagnesemia; D57.3 Sickle-cell trait; R79.1 Abnormal coagulation profile; R35.8 Other polyuria; K76.1 Chronic passive congestion of liver; I45.81 Long QT syndrome; I08.3 Combined rheumatic disorders of mitral, aortic and tricuspid valves; M70.61 Trochanteric bursitis, right hip; Z88.6 Allergy status to analgesic agent; Z88.8 Allergy status to other drugs, medicaments and biological substances; Z91.14 Patient's other noncompliance with medication regimen; Z72.89 Other problems related to lifestyle; Z87.891 Personal history of nicotine dependence
CPT/HCPCS: 36415; 71045; 71046; 71275; 76705; 80048; 80053; 80061; 80074; 80076; 82103; 82140; 82390; 82728; 82784; 83010; 83020; 83516; 83540; 83550; 83605; 83615; 83735; 83880; 83883; 84155; 84156; 84165; 84166; 84443; 84466; 84484; 85025; 85379; 85610; 85660; 85730; 86038; 86140; 86255; 86703; 93005; 93306; 99283; A9270-GY; J1160; J1644; J1940; J2270; J3475; J3490; Q9967

== ENCOUNTER 2018-09-28 18:46 | Emergency (ER) | payer OTHER ==
--- OUTSIDE RECORDS SUMMARY | 2018-09-28 19:01 | XMS REPORT | Continuity of Care Document ---
:1975 External Reference #:[id number] Author Name Joseline Soares Care Team Providers Name Role Phone Jamey Stein MD Care Team Information Electronic Development Technician Unavailable Payers Date Identification Numbers Payment Provider Subscriber Policy Number: [id number] Esdras Thurston PayID: [id number] [address] [place] [address] Advance Directives Description No Information Available Problems Date Description Provider Status Onset: 08/30/2018 Acute on chronic systolic heart failure Jamey Stein MD Active Onset: 08/30/2018 Mitral valve disorder Jamey Stein MD Active Onset: 08/30/2018 Tachycardia Jamey Stein MD Active Onset: 08/30/2018 Noncompliance with treatment Jamey Stein MD Active Onset: 08/30/2018 Pulmonary hypertension Jamey Stein MD Active Onset: 08/30/2018 Anemia Jamey Stein MD Active Family History Description No Information Available Social History Type Date Description Comments Sex Unknown Marital Status Single Lives With Alone 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 Tobacco Use Start: Unknown End: Patient is a former smoker Unknown Smoking Status Reviewed: 08/30/18 Patient is a former smoker Exercise Type/Frequency Exercises regularly Allergies, Adverse Reactions, Alerts Date Description Reaction Status Severity Comments 08/30/2018 Aspirin / Brompheniramine / Active Dextromethorphan / Phenylpropanolamine Medications Medication Date Status Form Strength Qnty SIG Indications Ordering Provider Acetaminophen 00// Active Tablets 650mg 1 by mouth Unknown ER 0000 ER twice a day Benzonatate / Active Capsules 100mg take one or Unknown 0000 two capsules every 8 hours as needed for cough. Carvedilol 00/ Active Tablets 3.125mg 1 by mouth Unknown 0000 twice a day Docusate Sodium 00/ Active Capsules 100mg 1 tab every Unknown 0000 12 hours as needed for constipation Lisinopril 00/00/ Active Tablets 2.5mg 1 by mouth Unknown 0000 every day Polyvinyl 0000/ Active Solution 1.4% 1 drop to Unknown Alcohol 0000 both eyes every 2 hours as needed for dry eyes. Furosemide 00/00/ Active Tablets 20mg 1 by mouth Unknown 0000 every day Magnesium Oxide 00/00/ Active Tablets 400mg 1 by mouth Unknown 0000 every day Potassium 00/ Active Capsules 10Meq 1 by mouth Unknown Chloride ER 0000 ER every day Percocet 0000/ Active Tablets 5-325mg 1 tabs by Unknown 0000 mouth every 8 hours as needed for pain. Maalox Max / Hx 30 ml every 6 Unknown 0000 - hrs prn 2018 Immunizations Description No Information Available Vital Signs Date Vital Result Comment 08/30/2018 1:55pm Height 69.5 inches 5'9.50" Weight 183.38 lb Heart Rate 78 /min BP Systolic Sitting 118 mmHg BP Diastolic Sitting 68 mmHg BMI (Body Mass Index) 26.7 kg/m2 08/30/2018 12:54pm Height 69.5 inches 5'9.50" Weight 180.00 lb Heart Rate 118 /min BP Systolic Sitting 108 mmHg BP Diastolic Sitting 88 mmHg Respiratory Rate 18 /min O2 % BldC Oximetry 98 % BMI (Body Mass Index) 26.2 kg/m2 Results Description No Information Available Procedures Date Code Description Status 08/30/2018 29356 EKG Tracing & Interpretation Completed 08/16/2018 29275 ECHO Transthorasic Realtime 2D W Doppler & Color Flow Hosp Completed Encounters Type Date Location Provider Dx Diagnosis Office Visit 08/24/2018 [facility] Chavez Anderson, I50.21 Acute systolic 12:17p Assoc,lillie PA (congestive) Hospitalists heart failure I27.20 Pulmonary hypertension, unspecified D57.3 Sickle-cell trait E80.7 Disorder of bilirubin metabolism, unspecified E87.6 Hypokalemia E83.42 Hypomagnesemia Office Visit 08/23/2018 [facility] Alondra Robertson I50.21 Acute systolic 12:17p Assoc,pc [place] (congestive) Hospitalists heart failure I27.20 Pulmonary hypertension, unspecified E80.7 Disorder of bilirubin metabolism, unspecified E87.6 Hypokalemia E83.42 Hypomagnesemia Office Visit 08/22/2018 [facility] Alondra Daleyaknidia I50.21 Acute systolic 12:16p lillie Martinez NP (congestive) Hospitalists heart failure I27.20 Pulmonary hypertension, unspecified E87.6 Hypokalemia E83.42 Hypomagnesemia E80.7 Disorder of bilirubin metabolism, unspecified Office Visit 08/21/2018 [facility] I50.21 Acute systolic 12:16p lillie Martinez MD (congestive) Hospitalists heart failure I27.20 Pulmonary hypertension, unspecified E87.6 Hypokalemia E80.7 Disorder of bilirubin metabolism, unspecified Office Visit 08/21/2018 4:08p [facility] Rick S. I50.23 Acute on chronic Of Parts Department Manager Mcgrath, DO systolic FACC (congestive) heart failure I34.0 Nonrheumatic mitral (valve) insufficiency Office Visit 08/20/2018 [facility] I50.21 Acute systolic 12:16p lillie Martinez MD (congestive) Hospitalists heart failure I27.20 Pulmonary hypertension, unspecified E80.7 Disorder of bilirubin metabolism, unspecified Office Visit 08/20/2018 4:07p [facility] Rick S. I50.23 Acute on chronic Of Parts Department Manager Mcgrath, DO systolic FACC (congestive) heart failure I34.0 Nonrheumatic mitral (valve) insufficiency Office Visit 08/19/2018 [facility] I50.21 Acute systolic 12:15p lillie Martinez M.D. (congestive) heart Hospitalists failure I27.20 Pulmonary hypertension, unspecified Office Visit 08/19/2018 3:56p [facility] Vianney I50.23 Acute on chronic Of Parts Department Manager Payton [employer] systolic (congestive) heart failure I34.0 Nonrheumatic mitral (valve) insufficiency R00.0 Tachycardia, unspecified Z91.14 Patient's other noncompliance with medication regimen Office Visit 08/18/2018 [facility] I50.21 Acute systolic 12:15p lillie Martinez M.D. (congestive) heart Hospitalists failure I27.20 Pulmonary hypertension, unspecified Office Visit 08/17/2018 [facility] I50.21 Acute systolic 12:14p Assgary,pc Shay, M.D. (congestive) heart Hospitalists failure I27.20 Pulmonary hypertension, unspecified Office Visit 08/17/2018 3:53p [facility] Bridgette Ramirez, I51.9 Heart disease, Of [facility] Verito unspecified I34.0 Nonrheumatic mitral (valve) insufficiency I27.20 Pulmonary hypertension, unspecified Z91.14 Patient's other noncompliance with medication regimen Office Visit 08/16/2018 [facility] Rae I27.20 Pulmonary 12:14p Assoc,lillie Cedeno, DO hypertension, Hospitalists unspecified I50.810 Right heart failure, unspecified Office Visit 08/16/2018 3:45p [facility] Vianney I50.20 Unspecified Of [facility] LONG Cain systolic (congestive) heart failure I34.0 Nonrheumatic mitral (valve) insufficiency E83.42 Hypomagnesemia R00.0 Tachycardia, unspecified Plan of Treatment Future Appointment(s):10/18/2018 1:00 pm - Boris Robledo M.D. at [facility] AT [facility]09/19/2018 3:30 pm - Vianney Cain NP at [facility]09/13/2018 11:00 am - Jamey Stein MD at [facility]08/30/2018 - Boris Robledo M.D.I50.23 Acute on chronic systolic ( congestive) heart failureFollow up:3 weeks at [place] office with Suzanne Chiang [employer] 6 weeks with at [facility]:Increase Lisinopril to 5 mg ( one full pill) every day Increase Coreg to 2 pills in am and 2 pills inpmI34.0 Nonrheumatic mitral (valve) qxgglzgzwhwdtH91.0 Tachycardia, unspecified
--- OUTSIDE RECORDS SUMMARY | 2018-09-28 19:01 | XMS REPORT | Continuity of Care Document ---
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 ETOH Use Denies alcohol use Tobacco Use Start: Unknown End: Patient is a former smoker Unknown Recreational Drug Use Denies Drug Use Smoking Status Reviewed: 09/19/18 Patient is a former smoker Exercise Type/Frequency Exercises regularly Allergies, Adverse Reactions, Alerts Date Description Reaction Status Severity Comments 08/30/2018 Aspirin / Brompheniramine / Active Dextromethorphan / Phenylpropanolamine Medications Medication Date Status Form Strength Qnty SIG Indications Ordering Provider Carvedilol 08/30/ Active Tablets 3.125mg 180ta 2 by mouth Unknown 2019 bs twice a day Lisinopril 08/30/ Active Tablets 5mg 1 by mouth Unknown 2019 every day Acetaminophen 00/00/ Active Tablets 650mg 1 by mouth Unknown ER 0000 ER twice a day Benzonatate / Active Capsules 100mg take one or Unknown 0000 two capsules every 8 hours as needed for cough. Docusate Sodium 00/ Active Capsules 100mg 1 tab every Unknown 0000 12 hours as needed for constipation Polyvinyl 00/ Active Solution 1.4% 1 drop to Unknown Alcohol 0000 both eyes every 2 hours as needed for dry eyes. Furosemide / Active Tablets 20mg 14tab 1 by mouth Unknown 0000 s twice a day Magnesium Oxide / Active Tablets 400mg 1 by mouth Unknown 0000 every day Potassium 00/ Active Capsules 10Meq 1 by mouth Unknown Chloride ER 0000 ER every day Percocet / Active Tablets 5-325mg 1 tabs by Unknown 0000 mouth every 8 hours as needed for pain. Maalox Max / Hx 30 ml every 6 Unknown 0000 - hrs prn 2018 Immunizations Description No Information Available Vital Signs Date Vital Result Comment 09/19/2018 3:26pm Height 67 inches 5'7" Weight 174.00 lb with shoes Heart Rate 132 /min BP Systolic Sitting 116 mmHg BP Diastolic Sitting 100 mmHg BP Systolic Standing 106 mmHg BP Diastolic Standing 96 mmHg BMI (Body Mass Index) 27.2 kg/m2 Ejection Fraction <20% echo 08/16/18 09/13/2018 11:14am Weight 175.00 lb with clothes Heart Rate 120 /min BP Systolic 120 mmHg BP Diastolic 94 mmHg Respiratory Rate 18 /min Body Temperature 98.4 F Pain Level 7 legs O2 % BldC Oximetry 98 % 08/30/2018 1:55pm Height 69.5 inches 5'9.50" Weight [...] BMI (Body Mass Index) 26.2 kg/m2 Results Test Date Facility Test Result H/L Range Note Comp Metabolic Panel 08/30/2018 [facility] Sodium 136 mmol/L N 135-145 [address] [place] [address] [phone] Potassium 4.7 mmol/L N 3.5-5.0 Chloride 103 mmol/L N 101-111 Co2 Carbon Dioxide 27 mmol/L N 22-32 Anion Gap 6 mmol/L N 2-11 Glucose 94 mg/dL N 70-100 Blood Urea Nitrogen 13 mg/dL N 6-24 Creatinine 0.76 mg/dL N 0.67-1.17 BUN/Creatinine Ratio 17.1 N 8-20 Calcium 9.5 mg/dL N 8.6-10.3 Total Protein 6.8 g/dL N 6.4-8.9 Albumin 3.9 g/dL N 3.2-5.2 Globulin 2.9 g/dL N 2-4 Albumin/Globulin Ratio 1.3 N 1-3 Total Bilirubin 2.00 mg/dL High 0.2-1.0 Alkaline Phosphatase 111 U/L High 34-104 Alt 23 U/L N 7-52 Ast 24 U/L N 13-39 Egfr Non- 112.5 >60 Egfr 136.1 >60 1 Laboratory test 08/30/2018 [facility] Magnesium 1.9 mg/dL N 1.9-2.[address] [place] [address] [phone] B-Type Natriuretic Peptide BNP > 1300 pg/mL High <=100 CBC Auto Diff 08/30/2018 [facility] White Blood 5.3 10^3/uL N 3.5-10.[address] [place] [address] [phone] Red Blood Count 4.45 10^6/uL N 4.00-5.40 Hemoglobin 11.7 g/dL Low 14.0-18.0 Hematocrit 36 % Low 42-52 Mean Corpuscular Volume 81 fL N 80-94 Mean Corpuscular Hemoglobin 26 pg Low 27-31 Mean Corpuscular HGB Conc 33 g/dL N 31-36 Red Cell Distribution Width 16 % High 10.5-15 Platelet Count 323 10^3/uL N 150-450 Mean Platelet Volume 6.8 fL Low 7.4-10.4 Abs Neutrophils 3.7 10^3/uL N 1.5-7.7 Abs Lymphocytes 1.1 10^3/uL N 1.0-4.8 Abs Monocytes 0.5 10^3/uL N 0-0.8 Abs Eosinophils 0 10^3/uL N 0-0.6 Abs Basophils 0 10^3/uL N 0-0.2 Abs Nucleated RBC 0 10^3/uL Granulocyte % 69.9 % Lymphocyte % 20.0 % Monocyte % 9.0 % Eosinophil % 0.4 % Basophil % 0.7 % Nucleated Red Blood Cells % 0 1 Because ethnic data is not always readily available, this report includes an eGFR for both -Americans and non- Americans. The National Kidney Disease Education Program (NKDEP) does not endorse the use of the MDRD equation for patients that are not between the ages of 18 and 70, are , have extremes of body size, muscle mass, or nutritional status, or are non- or non-. According to the National Kidney Foundation, irrespective of diagnosis, the stage of the disease is based on the level of kidney function: Stage Description GFR(mL/min/1.73 m(2)) 1 Kidney damage with normal or decreased GFR 90 2 Kidney damage with mild decrease in GFR 60-89 3 Moderate decrease in GFR 30-59 4 Severe decrease in GFR 15-29 5 Kidney failure <15 (or dialysis) Procedures Date Code Description Status 08/30/2018 33631 EKG Tracing & Interpretation Completed 08/16/2018 45579 ECHO Transthorasic Realtime 2D W Doppler & Color Flow Hosp Completed Encounters Type Date Location Provider Dx Diagnosis Office Visit 08/30/2018 [facility] Boris Early I50.23 Acute on chronic 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 systolic (congestive) heart failure I34.0 Nonrheumatic mitral (valve) insufficiency R00.0 Tachycardia, unspecified I42.9 Cardiomyopathy, unspecified Office Visit 08/25/2018 12:17p [place] Jordy Byrne I50.9 Heart failure, Assoc,AMOS [place] unspecified Hospitalists D57.3 Sickle-cell trait Office Visit 08/24/2018 [facility] Chavez I50.21 Acute systolic 12:17p Assoc,AMOS [place] (congestive) heart Hospitalists failure I27.20 Pulmonary hypertension, unspecified D57.3 Sickle-cell trait E80.7 Disorder of bilirubin metabolism, unspecified E87.6 Hypokalemia E83.42 Hypomagnesemia Office Visit 08/23/2018 [facility] I50.21 Acute systolic 12:17p Asslillie vega NP (congestive) Hospitalists heart failure I27.20 Pulmonary hypertension, unspecified E80.7 Disorder of bilirubin metabolism, unspecified E87.6 Hypokalemia E83.42 Hypomagnesemia Office Visit 08/22/2018 [facility] I50.21 Acute systolic 12:16p Asslillie vega NP (congestive) Hospitalists heart failure I27.20 Pulmonary hypertension, unspecified E87.6 Hypokalemia E83.42 Hypomagnesemia E80.7 Disorder of bilirubin metabolism, unspecified Office Visit 08/21/2018 [facility] I50.21 Acute systolic 12:16p Asslillie vega MD (congestive) Hospitalists heart failure I27.20 Pulmonary hypertension, unspecified E87.6 Hypokalemia E80.7 Disorder of bilirubin metabolism, unspecified Office Visit 08/21/2018 4:08p [facility] Rick S. I50.23 Acute on chronic Of Crabbing Machine Operator Mcgrath, DO systolic FACC (congestive) heart failure I34.0 Nonrheumatic mitral (valve) insufficiency Office Visit 08/20/2018 [facility] I50.21 Acute systolic 12:16p lillie Martinez MD (congestive) Hospitalists heart failure I27.20 Pulmonary hypertension, unspecified E80.7 Disorder of bilirubin metabolism, unspecified Office Visit 08/20/2018 4:07p [facility] Rick S. I50.23 Acute on chronic Of Crabbing Machine Operator Mcgrath, DO systolic FACC (congestive) heart failure I34.0 Nonrheumatic mitral (valve) insufficiency Office Visit 08/19/2018 [facility] I50.21 Acute systolic 12:15p Asslillie vega M.D. 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 (congestive) heart Hospitalists failure I27.20 Pulmonary hypertension, unspecified Office Visit 08/17/2018 3:53p [facility] Bridgette Ramirez, I51.9 Heart disease, Of [facility] [place] unspecified I34.0 Nonrheumatic mitral (valve) insufficiency I27.20 Pulmonary hypertension, unspecified Z91.14 Patient's other noncompliance with medication regimen Office Visit 08/17/2018 11:34a [facility] Alexander Faustokristin, I51.9 Heart disease, Of [facility] MAbdiel, FAC, unspecified FSCAI Office Visit 08/17/2018 12:14p [facility] Kathy I50.21 Acute systolic Assoclillie M.D. (congestive) Hospitalists heart failure I27.20 Pulmonary hypertension, unspecified Office Visit 08/16/2018 [facility] Rae I27.20 Pulmonary 12:14p Assoc,lillie Cedeno, DO hypertension, Hospitalists unspecified I50.810 Right heart failure, unspecified Office Visit 08/16/2018 3:45p [facility] Vianney I50.20 Unspecified Of [facility] LONG Cain systolic (congestive) heart failure I34.0 Nonrheumatic mitral (valve) insufficiency E83.42 Hypomagnesemia R00.0 Tachycardia, unspecified Plan of Treatment Future Appointment(s):09/28/2018 4:00 pm - [facility] ECHO Schedule at [facility]10/18/2018 1:00 pm - Boris Robledo M.D. at [facility]/19/2018 - Vianney Cain NPI50.23 Acute on chronic systolic (congestive) heart failureNew Labs:Basic Metabolic Panel, Ordered: 11/04Magnesium, Ordered: 09/19/18New Orders:Echocardiogram, Limited Study, Scheduled: 09/28/18Follow up:f/u with Dr. Robledo in two weeks as schedule.Recommendations:Please start wearing your life vest all day and night except when you shower. Please increase Coregalso known as carvedilol to 3 tablets in the morning and continue taking 2 tablets in the evening (9.375 mg in am and 6.25mg at night). I discussed the signs and symptoms of CHF and importance of daily wts, fluid restriction, and low sodium diet Obtain labs this week( 09/23/2018) non fasting. Lab site is next to [facility] you can go there either before or after your appointment on Wednesday Prim Laundryt contact number if you need battery charged or have questions about download is I34.0 Nonrheumatic mitral (valve) moghxgqmxtzfyA94.0 Tachycardia, tewjugmsfqoG00.9 Anemia, unspecified
--- OUTSIDE RECORDS SUMMARY | 2018-09-28 19:01 | XMS REPORT | Continuity of Care Document ---
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 Use Start: Unknown End: Patient is a former smoker Unknown Smoking Status Reviewed: 09/13/18 Patient is a former smoker Exercise Type/Frequency Exercises regularly Allergies, Adverse Reactions, Alerts Date Description Reaction Status Severity Comments 08/30/2018 Aspirin / Brompheniramine / Active Dextromethorphan / Phenylpropanolamine Medications Medication Date Status Form Strength Qnty SIG Indications Ordering Provider Acetaminophen 00/00/ Active Tablets 650mg 1 by mouth Unknown ER 0000 ER twice a day Benzonatate 00// Active Capsules 100mg take one or Unknown 0000 two capsules every 8 hours as needed for cough. Carvedilol 00/ Active Tablets 3.125mg 1 by mouth Unknown 0000 twice a day Docusate Sodium 00/ Active Capsules 100mg 1 tab every Unknown 0000 12 hours as needed for constipation Lisinopril 00/ Active Tablets 2.5mg 1 by mouth Unknown 0000 every day Polyvinyl 00/ Active Solution 1.4% 1 drop to Unknown Alcohol 0000 both eyes every 2 hours as needed for dry eyes. Furosemide 00/ Active Tablets 20mg 1 by mouth Unknown 0000 twice a day. Magnesium Oxide 00/ Active Tablets 400mg 1 by mouth Unknown 0000 every day Potassium / Active Capsules 10Meq 1 by mouth Unknown Chloride ER 0000 ER every day Percocet 00/ Active Tablets 5-325mg 1 tabs by Unknown 0000 mouth every 8 hours as needed for pain. Maalox Max / Hx 30 ml every 6 Unknown 0000 - hrs prn 2018 Immunizations Description No Information Available Vital Signs Date Vital Result Comment 09/13/2018 11:14am Weight 175.00 lb with clothes [...] H/L Range Note Comp Metabolic Panel 08/30/2018 [facility] Sodium 136 mmol/L N 135-[address] [place] [address] [phone] Potassium 4.7 mmol/L N 3.5-5.0 Chloride 103 [...] Egfr 136.1 >60 1 Laboratory test 08/30/2018 [facility] Magnesium 1.9 mg/dL N 1.9-2.[address] [place] [address] [phone] B-Type Natriuretic Peptide BNP > 1300 pg/mL High <=100 CBC Auto Diff 08/30/2018 [facility] White Blood 5.3 10^3/uL N 3.5-10.[address] [place] [address] [phone] Red Blood Count 4.45 10^6/uL N 4.00-5.40 [...] dialysis) Procedures Date Code Description Status 08/30/2018 38577 EKG Tracing & Interpretation Completed 08/16/2018 93669 ECHO Transthorasic Realtime 2D W Doppler & Color Flow Hosp Completed Encounters Type Date Location Provider Dx Diagnosis Office Visit 08/30/2018 [facility] Boris Early 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 [facility] Verito Robledo systolic (congestive) heart failure I34.0 Nonrheumatic mitral (valve) insufficiency R00.0 Tachycardia, unspecified I42.9 Cardiomyopathy, unspecified Office Visit 08/25/2018 12:17p [place] Jordy Byrne I50.9 Heart failure, Assoc,AMOS [place] unspecified Hospitalists D57.3 Sickle-cell trait Office Visit 08/24/2018 [facility] Chavez I50.21 Acute systolic 12:17p Ass[place]illie PA (congestive) heart Hospitalists failure I27.20 Pulmonary hypertension, unspecified D57.3 Sickle-cell trait E80.7 Disorder of bilirubin metabolism, unspecified E87.6 Hypokalemia E83.42 Hypomagnesemia Office Visit 08/23/2018 [facility] Alondra Robertson I50.21 Acute systolic 12:17p [place] NP (congestive) Hospitalists heart failure I27.20 Pulmonary hypertension, unspecified E80.7 Disorder of bilirubin metabolism, unspecified E87.6 Hypokalemia E83.42 Hypomagnesemia Office Visit 08/22/2018 [facility] I50.21 Acute systolic 12:16p lillie Martinez NP (congestive) Hospitalists heart failure I27.20 Pulmonary hypertension, unspecified E87.6 Hypokalemia E83.42 Hypomagnesemia E80.7 Disorder of bilirubin metabolism, unspecified Office Visit 08/21/2018 [facility] I50.21 Acute systolic 12:16p lillie Martinez MD (congestive) Hospitalists heart failure I27.20 Pulmonary hypertension, unspecified E87.6 Hypokalemia E80.7 Disorder of bilirubin metabolism, unspecified Office Visit 08/21/2018 4:08p [facility] Rick SZaira I50.23 Acute on chronic Of Recycling Attendant Mcgrath, DO systolic FACC (congestive) heart failure I34.0 Nonrheumatic mitral (valve) insufficiency Office Visit 08/20/2018 [facility] I50.21 Acute systolic 12:16p lillie Martinez MD (congestive) Hospitalists heart failure I27.20 Pulmonary hypertension, unspecified E80.7 Disorder of bilirubin metabolism, unspecified Office Visit 08/20/2018 4:07p [facility] Rick SZaira I50.23 Acute on chronic Of Recycling Attendant Mcgrath, DO systolic FACC (congestive) heart failure I34.0 Nonrheumatic mitral (valve) insufficiency Office Visit 08/19/2018 [facility] I50.21 Acute systolic 12:15p lillie Martinez M.D. (congestive) heart Hospitalists failure I27.20 Pulmonary hypertension, unspecified Office Visit 08/19/2018 3:56p [facility] Vianney I50.23 Acute on chronic Of Jone Cain NP systolic (congestive) heart failure I34.0 Nonrheumatic mitral (valve) insufficiency R00.0 Tachycardia, unspecified Z91.14 Patient's other noncompliance with medication regimen Office Visit 08/18/2018 [facility] I50.21 Acute systolic 12:15p lillie Martinez M.D. (congestive) heart Hospitalists failure I27.20 Pulmonary hypertension, unspecified Office Visit 08/17/2018 3:53p [facility] Bridgette Ramirez I51.9 Heart disease, Of Jone Sellers unspecified I34.0 Nonrheumatic mitral (valve) insufficiency I27.20 Pulmonary hypertension, unspecified Z91.14 Patient's other noncompliance with medication regimen Office Visit 08/17/2018 11:34a [facility] Alexander Hoang, I51.9 Heart disease, Of [facility] AT [facility] MAbdiel, FACC, unspecified FSCAI Office Visit 08/17/2018 12:14p [facility] Kathy I50.21 Acute systolic Assoc,lillie Day M.D. (congestive) Hospitalists heart failure I27.20 Pulmonary hypertension, unspecified Office Visit 08/16/2018 [facility] Rae I27.20 Pulmonary 12:14p Assoc,lillie Cedeno, DO hypertension, Hospitalists unspecified I50.810 Right heart failure, unspecified Office Visit 08/16/2018 3:45p [facility] Vianney I50.20 Unspecified Of [facility] LNOG Cain systolic (congestive) heart failure I34.0 Nonrheumatic mitral (valve) insufficiency E83.42 Hypomagnesemia R00.0 Tachycardia, unspecified Plan of Treatment Future Appointment(s):10/18/2018 1:00 pm - Boris Robledo M.D. at [facility] Of [facility] AT [facility]09/13/2018 - Jmaey Stein MDI50.23 Acute on chronic systolic (congestive) heart failureComments:Take 2 pills of the 3.125mg carvedilol in the morning and 2 pills at night. Take 1 whole 5mg lisinopril in afternoon. Take one 20mg lasix in the morning and one at night. Followup with Vianney next Tuesday 09/19.I34.0 Nonrheumatic mitral (valve) mnxvrrdkavzxhI35.9 Anemia, unspecified
--- OUTSIDE RECORDS SUMMARY | 2018-09-28 19:01 | XMS REPORT | Continuity of Care Document ---
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 Payers Date Identification Numbers Payment Provider Subscriber Policy Number: [id number] Esdras Thurston PayID: [id number] [address] [place] [address] Advance Directives Description No Information Available Problems [...] History Type Date Description Comments Sex Unknown Tobacco Use Start: Unknown End: Unknown Patient is a former smoker Smoking Status Reviewed: 08/30/18 Patient is a former smoker Allergies, Adverse Reactions, Alerts Description No Information Medications Medication Date Status Form Strength Qnty SIG Indications Ordering Provider Acetaminophen / Active Tablets 650mg 1 by mouth Unknown ER 0000 ER twice a day Maalox Max / Active 30 ml every 6 Unknown 0000 hrs prn Benzonatate / Active Capsules 100mg take one or Unknown 0000 two capsules every 8 hours as needed for cough. Carvedilol 0000/ Active Tablets 3.125mg 1 by mouth Unknown 0000 twice a day Docusate Sodium 00/ Active Capsules 100mg 1 tab every Unknown 0000 12 hours as needed for constipation Lisinopril / Active Tablets 2.5mg 1 by mouth Unknown 0000 every day Polyvinyl 00/ Active Solution 1.4% 1 drop to Unknown Alcohol 0000 both eyes every 2 hours as needed for dry eyes. Furosemide 00/ Active Tablets 20mg 1 by mouth Unknown 0000 every day Magnesium Oxide 0000/ Active Tablets 400mg 1 by mouth Unknown 0000 every day Potassium 00/ Active Capsules 10Meq 1 by mouth Unknown Chloride ER 0000 ER every day Percocet 00/ Active Tablets 5-325mg 1 tabs by Unknown 0000 mouth every 8 hours as needed for pain. Immunizations Description No Information Available Vital Signs Date Vital Result Comment 08/30/2018 12:54pm Height 69.5 inches 5'9.50" Weight 180.00 lb Heart Rate 118 /min BP Systolic Sitting 108 mmHg BP Diastolic Sitting 88 mmHg Respiratory Rate 18 /min O2 % BldC Oximetry 98 % BMI (Body Mass Index) 26.2 kg/m2 Results Description No Information Available Procedures Date Code Description Status 08/16/2018 53257 ECHO Transthorasic Realtime 2D W Doppler & Color Flow Hosp Completed Encounters Type Date Location Provider Dx Diagnosis Office Visit 08/21/2018 [facility] I50.21 Acute systolic 12:16p lillie Martinez MD (congestive) Hospitalists heart failure I27.20 Pulmonary hypertension, unspecified E87.6 Hypokalemia E80.7 Disorder of bilirubin metabolism, unspecified Office Visit 08/21/2018 4:08p [facility] Rick S. I50.23 Acute on chronic Of [place] [employer] Mcgrath, DO systolic FACC (congestive) heart failure I34.0 Nonrheumatic mitral (valve) insufficiency Office Visit 08/20/2018 [facility] I50.21 Acute systolic 12:16p lillie Martinez MD (congestive) Hospitalists heart failure I27.20 Pulmonary hypertension, unspecified E80.7 Disorder of bilirubin metabolism, unspecified Office Visit 08/20/2018 4:07p [facility] Rick S. I50.23 Acute on chronic Of [place] [employer] Mcgrath, DO systolic FACC (congestive) heart failure I34.0 Nonrheumatic mitral (valve) insufficiency [facility] I[facility] Acute systolic 12:15p lillie Martinez M.D. (congestive) heart Hospitalists failure I27.20 Pulmonary hypertension, unspecified Office Visit 08/19/2018 3:56p [facility] I50.23 Acute on chronic Of [place] [employer] LONG Cain systolic (congestive) heart failure I34.0 Nonrheumatic mitral (valve) insufficiency R00.0 Tachycardia, unspecified Z91.14 Patient's other noncompliance with medication regimen [facility] I50.21 Acute systolic 12:15p lillie Martinez M.D. (congestive) heart Hospitalists failure I27.20 Pulmonary hypertension, unspecified Office Visit [facility]17/[facility] I50.21 Acute systolic 12:14p lillie Martinez M.D. (congestive) heart Hospitalists failure I27.20 Pulmonary hypertension, unspecified Office Visit 08/17/2018 3:53p [facility] Bridgette Ramirez, I51.9 Heart disease, Of [facility] Verito unspecified I34.0 Nonrheumatic mitral (valve) insufficiency I27.20 Pulmonary hypertension, unspecified Z91.14 Patient's other noncompliance with medication regimen Office Visit 08/16/2018 [facility] Rae I27.20 Pulmonary 12:14p Assoclillie, DO hypertension, Hospitalists unspecified I50.810 Right heart failure, unspecified Office Visit 08/16/2018 3:45p [facility] I50.20 Unspecified Of Jone Cain NP systolic (congestive) heart failure I34.0 Nonrheumatic mitral (valve) insufficiency E83.42 Hypomagnesemia R00.0 Tachycardia, unspecified Plan of Treatment Future Appointment(s):09/13/2018 11:00 am - Jamey Stein MD at [facility]08/30/2018 - Jamey Stein MDI50.23 Acute on chronic systolic ( congestive) heart failureComments:Please get a scale, record weights daily. Call us if increase more than 3lbs in one day or 5lbs in one week. Follow-up with Dr. Robledo right now.I34.0 Nonrheumatic mitral (valve) jjtijhlzsovuhK49.0 Tachycardia, fhyahbvmqceC52.14 Patient's other noncompliance with medication yqazcabC84.20 Pulmonary hypertension, rqsygrhuqidW03.9 Anemia, unspecified
--- NOTE | 2018-09-28 19:12 | ED ---
Respiratory - HPI Summary HPI Summary: A 42 y/o male presents to [facility] with a chief complaint of cough since four days ago. The patient reports that he feels like he has phlegm in his throat, but he cannot cough it up, claiming that he has had dry cough two nights ago and this morning. At triage he rated his pain as an 8/10 in severity. He claims that it feels like he has air caught in his chest. The patient claims that he has been on a low sodium diet and has been drinking 8 gallons of water per week and has been able to spit saliva at times. He claims that his swelling in the legs has been down for two weeks and he denies SOB but he does report some chest pain. He reports that he saw Dr. Robledo, projector booth operator, for an echocardiogram and when he told him his symptoms, he suggested getting a CXR and coming to the ED. He claims that he is on 6 different prescriptions. He says that lying flat aggravates his pain. He reports that he has not been able to work since being admitted to the ED for his heart conditions. - History of Current Complaint Chief Complaint: EDUpperRespComplaint Stated Complaint: COUGH PER PT Time Seen by Provider: 09/28/18 19:01 Hx Obtained From: Patient Onset/Duration: Sudden Onset, Lasting Days, Still Present Timing: Constant Initial Severity: Severe Current Severity: Severe Pain Intensity: 8 Character: Cough (Productive), Cough (Nonproductive) Sputum Color: Clear Aggravating Factor(s): Other - lying flat Alleviating Factor(s): Nothing Associated Signs and Symptoms: Edema - but pt says that it has been improved, Chest Pain with Cough - Allergy/Home Medications Allergies/Adverse Reactions: Allergies Allergy/AdvReac Type Severity Reaction Status Date / Time aspirin Allergy GI Upset Verified 09/28/18 18:52 NSAIDS (Non-Steroidal Allergy GI Upset Verified 09/28/18 18:52 Anti-Inflamma pear Allergy Vomiting Verified 09/28/18 18:52 PMH/Surg Hx/FS Hx/Imm Hx Endocrine/Hematology History: Denies: Hx Diabetes Cardiovascular History: Denies: Hx Hypertension History: Denies: Hx Renal Disease Sensory History: Denies: Hx Contacts or Glasses, Hx Legally Blind, Hx Deafness, Hx Hearing Aid Opthamlomology History: Denies: Hx Contacts or Glasses, Hx Legally Blind Infectious Disease History: No Infectious Disease History: Denies: Traveled Outside the [place] in Last 30 Days - Family History Known Family History: Negative: Hypertension, Diabetes, Blood Disorder - Social History Alcohol Use: None Substance Use Type: Reports: None Smoking Status (MU): Former Smoker Review of Systems Negative: Fever Positive: Chest Pain Positive: Cough. Negative: Shortness Of Breath Positive: Edema All Other Systems Reviewed And Are Negative: Yes Physical Exam - Summary Physical Exam Summary: Appearance: Well-appearing, Well-nourished black male lying in bed comfortably Skin: Warm, dry, no obvious rash Eyes: sclera anicteric, no conjunctival pallor ENT: mucous membranes moist, pharynx appears normal Neck: Supple, nontender Respiratory: Clear to auscultation, no signs of respiratory distress Cardiovascular: S4 gallop rhythm, regular tachycardia at approximately 130 bpm , murmur consistent with mitral regurgitation. Abdomen: Soft, nontender, normal active bowel sounds present Musculoskeletal: Normal, Strength/ROM Intact Neurological: A&Ox3, awake and alert, mentation is normal, speech is fluent and appropriate Psychiatric: affect is normal, does not appear anxious or depressed Triage Information Reviewed: Yes Vital Signs On Initial Exam: Initial Vitals Temp Pulse Resp BP Pulse Ox 99 F 133 18 112/92 100 09/28/18 18:48 09/28/18 18:48 09/28/18 18:48 09/28/18 18:48 09/28/18 18:48 Vital Signs Reviewed: Yes Diagnostics - Vital Signs Vital Signs Temp Pulse Resp BP Pulse Ox 09/28/18 18:48 99 F 133 18 112/92 100 - Laboratory Result Diagrams: 09/28/18 19:41 09/28/18 19:41 Lab Statement: Any lab studies that have been ordered have been reviewed, and results considered in the medical decision making process. - Radiology CXR Radiology Interpretation Completed By: ED Physician Summary of Radiographic Findings: Right lobe infiltrate. Pending official imaging report. - CT Chest/thorax CTA CT Interpretation Completed By: Radiologist Summary of CT Findings: 1. No pulmonary embolus. 2. Cardiomegaly, similar to prior study. 3. The right pleural effusion has increased since prior, now moderate. A tiny. left pleural effusion is also now present. 4. Bilateral septal thickening suggests mild pulmonary edema. 5. Partial right middle lobe collapse and consolidation. Dependent lower lobe. opacities likely represent atelectasis. 6. Ascites. ED physician has reviewed this imaging report. - EKG 19:30 Cardiac Rate: Tachycardia - 126 bpm EKG Rhythm: Sinus Tachycardia Summary of EKG Findings: EKG at 19:30 showed sinus tachycardia at 126 bpm with probably LVH with secondary repol, anterior Q waves, possibly due to LVH, and prolonged QT interval. Disposition - Course Course Of Treatment: A 42 y/o male presents to [facility] with a chief complaint of cough since four days ago. The physical exam revealed S4 gallop rhythm, regular tachycardia at approximately 130 bpm, murmur consistent with mitral regurgitation. EKG at 19:30 showed sinus tachycardia at 126 bpm with probably LVH with secondary repol, anterior Q waves, possibly due to LVH, and prolonged QT interval. Bloodwork and chemistries obtained and are WNL. CTA chest/thorax impression: 1. No pulmonary embolus. 2. Cardiomegaly, similar to prior study. 3. The right pleural effusion has increased since prior, now moderate. A tiny. left pleural effusion is also now present. 4. Bilateral septal thickening suggests mild pulmonary edema. 5. Partial right middle lobe collapse and consolidation. Dependent lower lobe. opacities likely represent atelectasis. 6. Ascites.The CXR revealed right lobe infiltrate. I had the chest x-ray reviewed by [facility] and they think he has a small effusion with also some right middle and lower lobe atelectasis versus infiltrate. I think the chest x-ray is most consistent with pneumonia in the right middle lobe and the patient has been suffering with a cough for the past several days. He does not have a leukocytosis however, so I'm not entirely certain of this diagnosis. In any event he does not appear ill enough to need to be in the hospital right now. I am going to slightly increase his Lasix due to the pleural effusion and put him on an empiric course of antibiotics given the suspicion of pneumonia. I explained he will probably continue to cough and not feel a whole lot better over the next couple of days but he shouldn't feel any worse and if he does he needs to seek follow-up either here or with his regular doctor. Patient is in agreement with this plan. - Diagnoses Provider Diagnoses: Pneumonia, CHF (congestive heart failure) - Physician Notifications Discussed Care Of Patient With: Bridgette Ramirez Time Discussed With Above Provider: 20:52 Instructed by Provider To: Other - Reviewed results and did not believe that the patient had to be admitted. Discharge - Sign-Out/Discharge Documenting (check all that apply): Patient Departure - DC Patient Received Moderate/Deep Sedation with Procedure: No - Discharge Plan Condition: Good Disposition: HOME Prescriptions: DOXYcycline CAP(*) [DOXYcycline 100MG CAP(*)] 100 mg PO BID #20 cap Patient Education Materials: Pleural Effusion (ED), Community Acquired Pneumonia (ED) Referrals: Jamey Stein MD [Primary Care Provider] - Boris Robledo MD [Medical Doctor] - Additional Instructions: Mucinex can help with the cough and chest congestion. Take the antibiotic twice a day. You may not feel much better until the weekend, but if you are getting worse (high fever, trouble breathing, shaking chills, etc.) we should see you back here. - Billing Disposition and Condition Condition: GOOD Disposition: Home - Attestation Statements Document Initiated by Marge: Yes Documenting Scribe: Alexander Ferro Provider For Whom Marge is Documenting (Include Credential): Jagdeep Alicea MD Scribe Attestation: I, Alexander Ferro, scribed for Jagdeep Alicea MD on 09/29/18 at 0222. Scribe Documentation Reviewed: Yes Provider Attestation: The documentation as recorded by the Alexander chavez accurately reflects the service I personally performed and the decisions made by me, Jagdeep Alicea MD Status of Scribe Document: Viewed
[2018-09-28 19:54] LABS: ABS Basophils 0 10^3/ul (0-0.2); ABS Eosinophils 0 10^3/ul (0-0.6); ABS Lymphocytes 1.1 10^3/ul (1.0-4.8); ABS Monocytes 0.4 10^3/ul (0-0.8); ABS Neutrophils 3.5 10^3/ul (1.5-7.7); ABS Nucleated RBC 0 10^3/ul; Eosinophil % 0.2 %; Hematocrit 32 % (42-52); Hemoglobin 10.3 g/dl (14.0-18.0); Lymphocyte % 21.7 %; Mean Corpuscular HGB Conc 32 g/dl (31-36); Mean Corpuscular Hemoglobin 26 pg (27-31); Mean Corpuscular Volume 79 fL (80-94); Mean Platelet Volume 7.7 fL (7.4-10.4); Nucleated Red Blood Cells % 0.1; Platelet Count 217 10^3/ul (150-450); Red Blood Count 4.04 10^6/ul (4.00-5.40); Red Cell Distribution Width 18 % (10.5-15)
[2018-09-28 20:10] LABS: Albumin 3.6 g/dL (3.2-5.2); Albumin/Globulin Ratio 1.1 (1-3); BUN/Creatinine Ratio 14.4 (8-20); Calcium 8.9 mg/dL (8.6-10.3); EGFR Non-African American 92.5 (>60); Globulin 3.4 g/dL (2-4); Magnesium 1.8 mg/dL (1.9-2.7); Potassium 4.2 mmol/L (3.5-5.0); Total Bilirubin 3.8 mg/dL (0.2-1.0)
[2018-09-28] MEDS ORDERED: DOXYcycline CAP(*) 100 MG PO ONE (22:20)
[2018-09-28] MEDS ORDERED: Iohexol 350* (CONTRAST) 500 ML MDV IV ONE (22:53)
[2018-09-29 00:42] VITALS: BP 106/78
== END 2018-09-29 00:40 | disposition home or self-care (01) ==
LOC: ED 18:46
DX: J18.9 Pneumonia, unspecified organism (principal); I50.9 Heart failure, unspecified; R00.0 Tachycardia, unspecified; Z87.891 Personal history of nicotine dependence
CPT/HCPCS: 36415; 71046; 71275; 80053; 83735; 85025; 85379; 93005; 99283; A9270-GY; Q9967

== ENCOUNTER 2018-11-29 04:21 | Inpatient (IN) | payer OTHER ==
--- NOTE | 2018-11-29 04:49 | ED ---
GI/ HPI - HPI Summary HPI Summary: Pt is a 43 y/o male who presents to the ED c/o edema. 3 days ago he ate Jordanian food, and since then has had worsening swelling of his BLE and testicles. He denies any SOB. Pain is rated a 7/10 in severity. As per medical records, he was here on 09/28/18 with similar symptoms. He was diagnosed with CHF and pulmonary HTN in July 2018. Since then pt has been on 20 mg Lasix, Metoprolol , and Lisinopril. As per medical records, a prior echocardiogram revealed an ejection fraction of 20%. Pt states he usually tries to eat a low-sodium diet. He denies any drug use. Pt is a former smoker. - History of Current Complaint Chief Complaint: EDGeneral Time Seen by Provider: 11/29/18 04:42 Stated Complaint: "POS FOOD ALLERGY" PER PT Hx Obtained From: Patient Onset/Duration: Started Days Ago - 3, Worse Since Timing: Constant Current Severity: Moderate Pain Intensity: 7 Location of Pain: Other - BLE to abdomen Additional Locations for Males: Testicles Aggravating Factor(s): Food - slovak food - salt Alleviating Factor(s): Nothing - Additional Pertinent History Primary Care Physician: [id number] - Allergy/Home Medications Allergies/Adverse Reactions: Allergies Allergy/AdvReac Type Severity Reaction Status Date / Time aspirin Allergy GI Upset Verified 11/29/18 04:28 NSAIDS (Non-Steroidal Allergy GI Upset Verified 11/29/18 04:28 Anti-Inflamma pear Allergy Vomiting Verified 11/29/18 04:28 Home Medications: Home Medications Metoprolol Succinate [Metoprolol Succinate ER] 25 mg PO DAILY 11/29/18 [History Confirmed 11/29/18] PMH/Surg Hx/FS Hx/Imm Hx Endocrine/Hematology History: Denies: Hx Diabetes Cardiovascular History: Reports: Hx Congestive Heart Failure, Hx Hypertension - pulmonary History: Denies: Hx Benign Prostatic Hyperplasia, Hx Renal Disease Sensory History: Denies: Hx Contacts or Glasses, Hx Legally Blind, Hx Deafness, Hx Hearing Aid Opthamlomology History: Denies: Hx Contacts or Glasses, Hx Legally Blind Infectious Disease History: No Infectious Disease History: Denies: Traveled Outside the [place] in Last 30 Days - Family History Known Family History: Negative: Hypertension, Diabetes, Blood Disorder - Social History Alcohol Use: None Hx Substance Use: No Substance Use Type: Reports: None Hx Tobacco Use: Yes Smoking Status (MU): Former Smoker Review of Systems Negative: Shortness Of Breath Positive: other - testicular swelling Positive: Edema - BLE to abdomen All Other Systems Reviewed And Are Negative: Yes Physical Exam - Summary Physical Exam Summary: Appearance: well appearing, no pain distress Skin: warm, dry, reflects adequate perfusion Head/face: normal Eyes: EOMI, MELLISA ENT: mucous membranes moist Neck: supple, non-tender, JVD Respiratory: CTA, breath sounds diminished at the bases Cardiovascular: tachycardic rate but regular rhythm, pulses symmetrical, 4+ BLE pitting edema to scrotum and abdomen Abdomen: non-tender, soft Bowel Sounds: present Musculoskeletal: normal, strength/ROM intact Neuro: normal, sensory motor intact, A&Ox3 Triage Information Reviewed: Yes Vital Signs On Initial Exam: Initial Vitals Temp Pulse Resp BP Pulse Ox 98.0 F 120 16 106/90 99 11/29/18 04:24 11/29/18 04:24 11/29/18 04:24 11/29/18 04:24 11/29/18 04:24 Vital Signs Reviewed: Yes Procedures - Procedure Summary Procedure Summary: Peripheral Line: placement of right EJ IV line due to poor peripheral access, 18 gauge needle, single attempt, flushes and draws easily, secured with Tegaderm. Diagnostics - Vital Signs Vital Signs Temp Pulse Resp BP Pulse Ox 11/29/18 04:24 98.0 F 120 16 106/90 99 - Laboratory Result Diagrams: 11/29/18 05:24 11/29/18 05:24 Lab Statement: Any lab studies that have been ordered have been reviewed, and results considered in the medical decision making process. - Radiology CXR Radiology Interpretation Completed By: ED Physician Summary of Radiographic Findings: Cardiomegaly. Right lower lobe opacity. Small right pleural effusion. No significant change from previous. Pending official radiology report. - Ultrasound No standard instances Ultrasound Interpretation Completed By: ED Physician Summary of Ultrasound Findings: Echocardiogram performed at bedside by ED physician: Global hypokinesia of left ventricle, no pericardial effusion. - EKG 5:44 Cardiac Rate: Tachycardia - 117 bpm EKG Rhythm: Sinus Tachycardia Summary of EKG Findings: LAD, prolonged QT interval, non-specific ST with flipped T waves laterally GIGU Course/Dx - Course Course Of Treatment: maxi with known cardiomyopathy and poor ejection fraction presents with worsening peripheral edema now extending into his abdomen. His scrotum is grossly distended making it difficult for him to urinate. Bedside ultrasound confirms that there is dilated cardiomyopathy with poor ejection fraction but there is no pericardial effusion. He has JVD and a BNP that's over max range. Symptoms initially worsened after a Jordanian food meal. The patient has failed outpatient Lasix and will require inpatient treatment. IV Lasix was given here and his heart rate was slowed with diltiazem. Dr. Stein is well-known to this patient and he'll be admitting him. - Diagnoses Differential Diagnoses - Male: Other - Decompensated heart failure, pericardial effusion, tamponade Provider Diagnoses: Peripheral edema, Acute on chronic congestive heart failure, Dilated cardiomyopathy - Physician Notifications Discussed Care Of Patient With: Jamey Stein Time Discussed With Above Provider: 06:10 Instructed by Provider To: Admit As Inpatient - Critical Care Time Critical Care Time: 30-74 min - Critical care time is exclusive of separately billable procedures Discharge - Sign-Out/Discharge Documenting (check all that apply): Patient Departure - Admit Patient Received Moderate/Deep Sedation with Procedure: No - Discharge Plan Condition: Stable Disposition: ADMITTED TO [facility] Referrals: Jamey Stein MD [Primary Care Provider] - - Billing Disposition and Condition Condition: STABLE Disposition: Admitted to [facility] - Attestation Statements Document Initiated by Muniraibe: Yes Documenting Scribe: Cyndi Vieyra Provider For Whom Scribe is Documenting (Include Credential): Faustino Varma MD Scribe Attestation: Cyndi Clark scribed for Faustino Varma MD on 11/29/18 at 0637. Scribe Documentation Reviewed: Yes Provider Attestation: The documentation as recorded by the Cyndi chavez accurately reflects the service I personally performed and the decisions made by me, Faustino Varma MD Status of Scribe Document: Viewed
[2018-11-29] MEDS ORDERED: Diltiazem IV push/loading dose 5 MG/ML 5 ML vial (25 mg) IV SLOW PU ONE (04:57)
[2018-11-29] MEDS ORDERED: Furosemide IV* 10 MG/ML 10 ML VIAL (100 MG) IV ONE (04:57)
[2018-11-29 05:42] LABS: Hematocrit 31 % (42-52); Hemoglobin 9.8 g/dL (14.0-18.0); Mean Corpuscular HGB Conc 31 g/dL (31-36); Mean Corpuscular Hemoglobin 23 pg (27-31); Mean Corpuscular Volume 74 fL (80-94); Mean Platelet Volume 7.4 fL (7.4-10.4); Platelet Count 283 10^3/uL (150-450); Red Blood Count 4.25 10^6 /uL (4.18-5.48); Red Cell Distribution Width 19 % (10.5-15); White Blood Count 4.3 10^3/uL (3.5-10.8)
[2018-11-29 05:47] LABS: INR 1.91 (0.82-1.09)
[2018-11-29 05:54] LABS: Albumin 3.6 g/dL (3.2-5.2); Albumin/Globulin Ratio 0.8 (1-3); BUN/Creatinine Ratio 18.4 (8-20); Calcium 8.7 mg/dL (8.6-10.3); EGFR Non-African American 83.5 (>60); Globulin 4.3 g/dL (2-4); Potassium 3.3 mmol/L (3.5-5.0); Total Bilirubin 2.7 mg/dL (0.2-1.0); Total Protein 7.9 g/dL (6.4-8.9)
[2018-11-29 05:56] LABS: Troponin I 0.01 ng/mL (<0.04)
[2018-11-29 06:09] LABS: ABS Lymphocytes 0.9 10^3/ul (1.0-4.8); ABS Monocytes 0.3 10^3/ul (0-0.8); ABS Neutrophils 3.1 10^3/ul (1.5-7.7); Eosinophil % 0.7 %; Lymphocyte % 20.5 %; Nucleated Red Blood Cells % 0.6
[2018-11-29 07:09] LABS: Magnesium 1.8 mg/dL (1.9-2.7)
[2018-11-29] MEDS ORDERED: Magnesium Sulfate 2 GM IV* 2 GM/50 ML BAG IVPB ONE (08:09)
[2018-11-29] MEDS: Potassium Chlor TAB* 20 MEQ TAB.ER PO SCH ×2 (08:54→12:46)
[2018-11-29] MEDS: Docusate CAP* 100 MG PO SCH ×2 (08:54→21:26)
[2018-11-29] MEDS ORDERED: Magnesium Oxide TAB* 400 MG PO SCH (09:00)
--- NOTE | 2018-11-29 10:48 | HP ---
HISTORY AND PHYSICAL: DATE OF ADMISSION: 11/29/18 ADMITTING PROVIDER: Jamey Stein MD. PRIMARY CARE PROVIDER: [facility] (Jamey Stein MD and Veronika Pablo DO). OUTPATIENT CARDIOLOGISTS: Vianney Cain NP and Boris Robledo MD. CHIEF COMPLAINT: Lower extremity edema and scrotal edema. HISTORY OF PRESENT ILLNESS: Dung Thurston is a 43-year-old male with past medical history of severe systolic CHF with ejection fraction approximately 20% , sickle cell trait, history of pancreatitis. He has been following with Dr. Robledo of [facility] and the [facility]. His course has been complicated by struggles with his understanding and retaining information about his diagnoses and the desired treatment course for them. He called myself, Dr. Stein, on 10/31/18, weighing ~184 pounds. At that time I asked him to increase his lasix to 20 mg twice a day (along with additional tab if necessary) and with a goal weight reduction to about 175, at which he had been more stabilized. He had been followed up with Vianney Cain of Cardiology on after missing followup with the [facility] the day prior and he was continued on the diuretics. His Coreg was changed to metoprolol succinate 12.5 given his concerns for excessive fatigue. He actually says for the last week he has been doing great. On 11/26/18, he had some [place]an style fried chicken with broccoli dish, and then on 11/28/18, he ate half of an apple pie. He is fixated on the fact that a few days before his 10/31/18 call, he had eaten a watermelon and this had caused significant weight gain he states that because "watermelons are softer than apples" he got into trouble again with weight gain in particular a 5-pound weight gain the day prior to admission. He has been inconsistent with recording his weights. He says that he took two 20 mg tabs Wednesday p.m. at around 11 p.m., one 20 mg tab at Wednesday 3 p.m., two 20 mg tabs at 6 p.m. Wednesday, then two 20 mg tablets on 10 a.m. Wednesday, and one 20 mg tab in the afternoon Sven, then two 20 mg tabs at midnight, and one 20 mg tab at 3 a.m. prior to presenting to the emergency room with chief complaint of his scrotum swelling to the size of a grape fruit. Again has BNP greater than 1300. A chest x-ray consistent with heart failure, more specifically persistent right lower lobe consolidation with a small right pleural effusion, has progressed somewhat from 09/28/18, the persistence from September 2018 raises the possibility of an underlying parenchymal pathology. Recommend to continue followup until resolution or consideration of correlation with repeat cross sectional imaging including PET/CT in the nonacute setting. He got 60 mg of IV Lasix and has put out 1 L of clear yellow urine and the scrotal edema has somewhat improved. He is concerned about his inability to work currently and he is trying to setup SSD for support. He denies any chest pain other than some discomfort where the EKG leads were placed. He says he has not been wearing his LifeVest either, giving reasoning that if he wears his LifeVest this will turn off traffic lights and other electrical devices in the area. PAST MEDICAL HISTORY: Severe systolic congestive heart failure, history of pancreatitis and sick cell trait, severe mitral regurgitation, moderate pulmonary hypertension with RVSP of 51 mmHg. Elevated bilirubinemia thought to be secondary to hepatic congestion secondary to severe heart failure. Iron- deficiency anemia. MEDICATIONS: Include: 1. Lisinopril 2.5 mg daily. 2. Docusate 100 mg p.o. b.i.d. 3. Metoprolol succinate 12.5 mg daily. 4. Lasix taking 20 mg tabs approximately 3 total a day and 40 mg in the morning and 20 in the afternoon distribution. 5. Potassium chloride 10 mEq p.o. daily. 6. Magnesium oxide 800 mg p.o. daily. 7. Tylenol 650 mg p.o. q.4 hours p.r.n. ALLERGIES: ASPIRIN, GI upset. NSAIDs, GI upset, tears, vomiting. FAMILY HISTORY: Describes his mother and father as being "rebels," both dying young with multiple car accidents and one of them had a brain hemorrhage in their 20s. No reported heart issues. 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 He is a former smoker of about 3 years, quit in January 2018. He used to smoke cigars. No current alcohol use. Never a heavy drinker. No drug use. REVIEW OF SYSTEMS: A 14-point review of systems is negative except as per HPI. PHYSICAL EXAMINATION GENERAL APPEARANCE: No acute distress. VITAL SIGNS: Temperature 98.0, pulse rate 120, respiratory rate 16, sating 99% on room air, blood pressure 106/90. HEENT: Normocephalic, atraumatic. Pupils equal, round, and reactive to light. Scleral icterus noted. EJ peripheral line in the right neck. LUNGS: With rales at the left lower lung pepper and decreased breath sounds in the right lower lung pepper. CARDIAC: Tachycardic, regular. No murmurs, rubs, or gallops. ABDOMEN: Soft, nontender, slightly distended. EXTREMITIES: Warm and well perfused. He has anasarca from his lower extremities up to his waist and scrotal edema, approximately 12 cm in diameter. NEUROLOGIC: Cranial nerves II through XII intact. Moving all extremities. SKIN: No lesions, no rashes. DIAGNOSTIC STUDIES/LAB DATA: White count 4.3, hemoglobin 9.8, hematocrit 31, MCV 74, platelets 283. INR 1.91. Sodium 134, potassium 3.3, chloride 102, carbon dioxide 21, anion gap 11, BUN 18, creatinine 0.98, glucose 87, lactic acid 2.9, calcium 8.7, magnesium 1.8. Total bili 2.7, AST 23, ALT 12, alk phos 110. Troponin 0.01. BNP greater than 1300. Albumin 3.6. Imaging: Chest x-ray, impression: 1. Cardiomegaly. 2. Persistent right lower lobe consolidation with a small right pleural effusion. This has progressed somewhat from 09/28/18. The persistence from September 2018 raises the possibility of underlying parenchymal pathology. Recommended continued followup until resolution or consideration of correlation with repeat cross sectional imaging, including PET/CT in the nonacute setting. EKG: Sinus tachycardia, T-wave inversions V5 through V6, unchanged from . No ST elevations or depressions. Q-waves inferiorly also unchanged. QTc prolonged at 508. ASSESSMENT AND PLAN: Dung Thurston is a 43-year-old male with past medical history of severe systolic congestive heart failure of unknown etiology. There was some concern of viral myocarditis back in 2015 when he was taken care by Dr. Gonzalez secondary to possible myocarditis more specifically. His course has been notably challenging given his limited understanding of his disease process, despite multiple reinforcing lessons by both Cardiology and Care [facility]. He remains fixated on topics as the warmth or sugar content of his foods rather than focusing on more important issues like the quantity of liquids he drinks and salt content of foods he eats. He is rather inconsistent with the timing of his diuretic dosing and his sleep schedule seems to fluctuate from day to day. He is presenting with acute exacerbation of CHF. He is currently on 60 mg of IV Lasix with good response. I will put him on strict I's and O's. Repeat the dose at 11 a.m. and 6 p.m. Continue his lisinopril 2.5 mg daily, his metoprolol 12.5 mg p.o. daily. Of note, he did not tolerate Coreg as an outpatient as it made him drowsy. I am going to put in a social work consult to help him , setup transportation for the cardiac MRI up at [place]. He has this persistent consolidations in right lower lobe with atelectasis and pleural effusion. Consideration for possible thoracentesis , cytology and/or outpatient PET/CT scan to rule out any sort of malignant process, but I think more likely this is just persistent poorly controlled heart failure as the predominant etiology. I will be consulting Cardiology to help manage his care and to help ensure smooth transition to the outpatient setting. I am putting in a social work consult to help establish with [place] care transitions, to help setup his transportation to [place] for his cardiac MRI and to apply for SSD. He is being put on 1.2 L fluid restriction. He is a full code. He refuses to name a next of kin saying that eventually it will be his "mother's friend", but for now, he would desire a court appointed medical surrogate. [id number]/[facility] #: [id number] SHIELA
--- NOTE | 2018-11-29 11:15 | PN ---
<Vianney Cain - Last Filed: 11/29/18 17:59> Cardiology Progress Note Date of Service: 11/29/18 - decompensated SHF, moderate to severe MR Spoke with Dr. Robledo who recommends transferring patient to [facility] given severe LV dysfunction, decompensation SHF, moderate to severe MR. I called the transfer center and I am waiting for a call back. I spoke with Leslie TRINIDAD who is the hospitalist caring for the patient today and update her with recommendations. I spoke with Dr. Umana at [facility]. According to Dr. Umana in order for the patient to qualify for a LVAD he would need to live with someone and be able to come to and from [place] 2-3 times a month. Currently the patient lives in a hotel and we have not been able to even succsessfully reach his social work faculty member or have her return our calls to arrange for outpatient MRI. In addition He would not accept transfer for optimization of CHF or social optimization given patient resides in [place] and the biggest barrier to care is his social predicament. I update DR. Robledo around noon today with update and inability to get patient transferred. <Boris Robledo D - Last Filed: 12/05/18 22:04> Cardiology Progress Note Case reviewed [facility] OFFICE COORDINATOR Pt with end stage heart failure medications maximized. No other options at [facility]. Unable to transfer to heart failure center as he is not a candidate for more aggressive therapies time with pt 20 min Boris Robledo MD LOCATED WITHIN [facility]
[2018-11-29] MEDS: Metoprolol Succinate XL TAB* 25 MG PO SCH (12:17)
[2018-11-29] MEDS: Lisinopril TAB* 5 MG PO SCH (12:46)
[2018-11-29] MEDS: Furosemide IV* 10 MG/ML VIAL (40 MG) IV SCH ×2 (12:47→17:39)
--- NOTE | 2018-11-29 13:10 | CONS ---
CONSULTATION REPORT: DATE OF CONSULT: 11/29/18 ATTENDING PHYSICIAN: Dr. Boris Robledo, Cardiology* (dictated by Paul Cain NP). CHIEF COMPLAINT: Scrotum swelling. PRIMARY TOW PICKER: Dr. Boris Robledo. PRIMARY RESIDENT CARE MANAGER RN: Dr. Rosa. PRIMARY PHYSICIAN: Dr. Stein. HISTORY OF PRESENT ILLNESS: This is a pleasant 43-year-old -[place] patient with a known history of severe LV dysfunction dating back to 2016 in addition to marked severe mitral insufficiency, sinus tachycardia. He was recently admitted in July due to complaints of bilateral lower extremity swelling, shortness of breath, and 20-pound weight gain. During that hospital stay, troponin was normal. The patient was started on heart failure guideline- driven therapy. He did have hyperbilirubinemia suspected to be related to his heart failure. I have been seeing him closely in the office most recently last week where his carvedilol was transitioned to metoprolol therapy due to the patient having difficult time taking medication twice a day. He reports compliance, although he does have difficulty with followup compliance. He was supposed to see my nurse yesterday for blood pressure and heart rate check with the hope of optimizing metoprolol. In addition, he was supposed to follow up with Gastroenterology yesterday due to need for paracentesis to calculate SAAG gradient; however, he never went to this appointment. He states that he was confused about his appointments and the dates; however, he was given written information when I saw him last week. Apparently, he has been eating pizzas and apple pies. Apparently over the weekend, he had half an apple pie and shortly afterwards he started to notice increased bilateral lower extremity swelling with scrotal involvement. He states that his scrotum was not painful, which is why he presented to the emergency department. He denies increased shortness of breath. Does report weight gain. He states that after medications were given to him in the emergency department, which consisted of 15 mg IV diltiazem, 60 mg IV Lasix, 2 g IV magnesium, and 40 mEq of p.o. potassium. He developed dizziness and lightheadedness. His blood pressure dropped to 92/77. Currently, his blood pressure is 106/84. The patient has almost a liter of urinary output in his York catheter while examining him at this time. He denies chest pain. He has been noncompliant with his LifeVest stating that the device is alerting. I historically have met Henny, the local LifeVest rep who problem shoots the equipment with the patient. He has been wearing it only during the day while watching TV. He is aware of the risk of sudden cardiac given severe LV dysfunction. I had arranged for outpatient cardiac MRI and we were trying to arrange for transportation. However, both myself and Mallory Nickerson, registered nurse with our practice, had difficulty contacting his long term care social worker. Both of us had left messages on the long term care social worker's cellphone. In the past, the patient has declined left heart catheterization. At this time, he states he is compliant with medications. He offers no other complaints. Denies fever, chills, nausea, vomiting, diarrhea. Last echocardiogram 08/16/18, LVEF less than 20%. There was increased trabeculation of the left myocardium. There is diffuse hypokinesis of the left ventricle, severe left atrial dilatation, moderate right ventricle dilatation, severe right atrial dilatation, trace aortic insufficiency, eoelfhla-kp-idumit mitral insufficiency, igprnprs-zm-gxsuqi tricuspid regurgitation, right ventricular systolic pressure 51 with moderate pulmonary hypertension. Last ischemic evaluation unknown. The patient historically declined ischemic evaluation during July 2018 admission. PAST MEDICAL HISTORY: Notable for: 1. Severe LV dysfunction. 2. Znfsefcj-eq-oonzdq mitral insufficiency. 3. Ihwaarfl-cw-ukkrni pulmonary hypertension. 4. Dhsfhveq-bc-rqpaqm tricuspid insufficiency. 5. History of hyperbilirubinemia and elevated INR. HOME MEDICATIONS: Include: 1. Metoprolol 12.5 mg a day. 2. Lasix 40 mg in the morning, 20 mg in the evening. 3. Tylenol 650 mg p.o. q.4 h. p.r.n. 4. K-Dur 10 mEq daily. 5. Mag oxide 800 mg a day. 6. Lisinopril 2.5 mg a day. 7. Colace as needed. ALLERGIES: He is intolerant to NSAIDs and aspirin. FAMILY HISTORY: Apparently, the patient's family is not active in his life. Thus, he is not aware of any medical problems involving his first-degree relatives. 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 Living in a hotel. Department of [employer] has been involved with his care in regards to arranging for transportation and medication appointments and so forth. He formerly ank alcohol heavily; however, he has not since the fall. He formerly smoked cigars; however, he quit in January of 2018. He denies illegal drug use. REVIEW OF SYSTEMS: All systems have been reviewed and otherwise negative except as above mentioned in the assessment and plan. PHYSICAL EXAM: Vital Signs: Temperature is 98, pulse is 107, respirations are 19, oxygenation 100% on room air, blood pressure 106/84. General: The patient was transitioning from stretcher to bed upon entering room. He appears in no apparent acute distress. He is cooperative with physical examination. He is alert and oriented x3. HEENT: Head is atraumatic and normocephalic. Oral mucosa is moist. Tongue is midline. Neck: Supple. Trachea midline. Positive JVD. No carotid bruit. IV line is on the right side of the neck. Cardiac: Tachycardic. S1, S2. Regular rate and rhythm. Positive gallop. No rub. Positive mitral murmur. Lungs: Auscultated posteriorly. Diminished in right lower field, otherwise no evidence of adventitious breath sounds. Respirations are non-labored and rate of 19. /GI: Abdomen is firm, distended, nontender. Normoactive bowel sounds. Extremities: 2+ pedal and pretibial edema noted bilaterally. Positive scrotal edema. Peripheral Vascular: 2+ brachial and dorsalis pulses palpated bilaterally and symmetrically. Skin: Intact. No evidence of jaundice, rashes , or ecchymosis appreciated. DIAGNOSTIC STUDIES/LAB DATA: Blood work obtained on 11/29/18: Sodium 134, potassium 3.3, chloride 102, carbon dioxide 21, BUN is 18, creatinine 0.98, magnesium 1.8, lactic acid 2.9. BNP greater than 1300. Alk phos 110. INR 1.9. White count 4.3, hemoglobin 9.8, hematocrit 31, platelets 283. Chest x-ray, 11/29/18: Per radiology report by Dr. Gurrola, revealed cardiomegaly, persistent right lower lobe consolidation with a small right pleural effusion. Apparently, this has progressed somewhat from 09/28/18. Persistence from September 2018 raises a possibility of underlying parenchymal pathology. ECG 11/29/18: Sinus tachycardia, rate of 117 with lateral T-wave depression consistent with prior ECG from September 2018. ASSESSMENT AND PLAN: 1. Decompensated systolic dysfunction, NYHA functional class 3 to 4. The patient presenting with increased pedal edema, ascites, and scrotal edema after consuming half apple pie this weekend. The patient appears decompensated. He is diuresed a liter since receiving IV Lasix 60 mg in the emergency department. Recommend continuing IV diuresis with 40 mg b.i.d. as previously ordered by Dr. Jamey Steni. The patient did develop symptomatic hypotension after being given IV diltiazem in the emergency department. I would like to optimize metoprolol and lisinopril therapy; however, we will reevaluate given episode this morning after administration of calcium channel cherie therapy. The patient had prior trabeculation noted on his echocardiogram in July of 2018. At that time, he had refused left heart catheterization. I did arrange for an outpatient cardiac MRI. Once optimized, we can evaluate ischemic evaluation prior to discharge. Continue to monitor on telemetry. He is noncompliant with LifeVest despite extensive counseling and is aware of sudden cardiac . There is a concern for insight in his disease process. In July of 2018, we did have Dr. Artur Colvin evaluate the patient due to medical decision making capacity. At that time, he had failed to demonstrate reasonable understanding of his illness. This had improved prior to discharge, however, during the hospital stay. We will follow closely. Recommend strict intake and output, fluid restriction less than 1500 mL. Sodium restricted less than 1500 mg. Daily weights. Recommend consulting dietitian given the patient's lack of understanding of sodium-restricted diet and the importance given severe LV dysfunction. 2. Umsopgje-gv-pdhrby mitral insufficiency. The patient is presenting with right- sided heart failure symptomatology given ascites, abdominal distention, lower extremity edema and scrotal edema. We will continue IV diuresis. 3. History of hyperbilirubinemia with coagulopathy. Presumed to be related to hepatic congestion from decompensated heart failure. The patient was supposed to follow up with Dr. Rosa, Gastroenterology, yesterday for evaluation of possible paracentesis for SAAG gradient. I spoke to Dr. Rosa, who would like GI to be consulted during this stay so that they could eventually do paracentesis once he is optimized given the patient's noncompliance with followup appointments. 4. Electrolyte imbalance. Potassium and magnesium were replaced. Recommend daily BMPs while being diuresed. 5. Disposition. Pending course. The patient is full code. Recommend gentle diuresis. We will follow closely. Dr. Robledo agrees with the above assessment and plan. PAUL CAIN, WARDROBE ASSISTANT [id number]/CPS #: [id number] SHIELA
--- NOTE | 2018-11-29 14:04 | PN ---
Subjective Date of Service: 11/29/18 Interval History: VS: Tachycardia, BP WNL Labs: anemia- start iron; elevated bili, BMP, slight elevation in alk phos Pt is doing well. He feels SOB and c/o swelling in LE and groin/scrotum area. Objective Active Medications: Docusate Sodium (Colace Cap*) 100 mg PO BID NORY Furosemide (Lasix Iv*) 40 mg IV 1100,1800 NORY Lisinopril (Prinivil Tab*) 2.5 mg PO DAILY NORY Magnesium Oxide (Magox 400 Tab*) 800 mg PO DAILY NORY Metoprolol Succinate (Toprol Xl Tab*) 12.5 mg PO DAILY NORY Vital Signs: Temp Pulse Resp BP Pulse Ox 97.4 F 113 20 103/69 99 11/29/18 11:28 11/29/18 11:28 11/29/18 11:28 11/29/18 11:28 11/29/18 11:28 Oxygen Devices in Use Now: None Appearance: Pt is sitting in bed with LE elevated. He appears to be working to breath, but without respiratory distress. He is not in acute distress. Eyes: PERRLA, - - Scleral icterus Ears/Nose/Mouth/Throat: NL Teeth, Lips, Gums, Clear Oropharnyx, Mucous Membranes Moist Neck: NL Appearance and Movements; NL JVP, Trachea Midline Respiratory: Symmetrical Chest Expansion and Respiratory Effort, Clear to Auscultation Cardiovascular: NL Sounds; No Murmurs; No JVD, - - Tachycardic. B/l LE edema that appears to be worse in thighs, 2+ pitting. Scrotal edema. Abdominal: No Hepatosplenomegaly - D, - - BS in all quadrants; abdomen is distended. There is no fluid wave Extremities: No Clubbing, Cyanosis Neurological: Alert and Oriented x 3 Result Diagrams: 11/29/18 05:24 11/29/18 14:22 Assess/Plan/Problems-Billing Assessment: 43 yom PMHx severe systolic HF, severe mitral regurgitation, moderate pulm HTN, iron deficiency anemia, h/o sickle trait who presents with CHF exacerbation. - Patient Problems (1) CHF exacerbation Comment: -JVD, b/l LE edema; pt diuresing well with lasix -Continue Lasix 40 BID -Continue daily weights, I/O -Heart healthy diet- low salt, fluid restriction 1.2L/d -Meat Process Worker consult ordered (2) Elevated lactic acid level Comment: -No s/s infection- without leukocytosis, fever, cough, urinary complaints, diarrhea -Pt appears to be perfusing well- skin is warm, cap refill < 2sec, no evidence for FRANKLIN or hepatic injury (LFT WNL, except slight elevated Alk phos, elevated bili) -Will forgo fluid bolus in light of severe fluid overload/CHF exacerbation -Recheck in a.m. (3) Increased bilirubin level Comment: -Likely secondary to hepatic congestion -Ordered direct/indirect bili, LDH -Pt following with Dr. Rosa, who requests consultation for possible paracentesis, SAAG gradient once patient stabilized (4) Iron deficiency anemia Comment: -Start ferrous sulfate (5) DVT prophylaxis Comment: - SQ heparin (6) Full code status Status and Disposition: Inpatient. Discharge when stable.
[2018-11-29 14:49] LABS: Calcium 8.8 mg/dL (8.6-10.3); Potassium 3.6 mmol/L (3.5-5.0)
[2018-11-29 14:55] LABS: BUN/Creatinine Ratio 21.8 (8-20); EGFR African American 115.9 (>60); EGFR Non-African American 95.8 (>60)
[2018-11-29 17:17] LABS: Indirect Bilirubin 1.7 mg/dL (0.3-1.0); Total Bilirubin 2.5 mg/dL (0.2-1.0)
[2018-11-29] MEDS: Enoxaparin(*) 40 MG/0.4 ML SYR SUBCUT SCH (17:38)
[2018-11-29] MEDS ORDERED: Potassium Chlor TAB* 20 MEQ TAB.ER PO ONE (17:58)
[2018-11-30] MEDS: Acetaminophen TAB* 325 MG PO PRN (00:39)
[2018-11-30 05:14] LABS: ABS Monocytes 0.5 10^3/ul (0-0.8); ABS Neutrophils 3.3 10^3/ul (1.5-7.7); Eosinophil % 0.4 %; Hematocrit 30 % (42-52); Hemoglobin 9.6 g/dL (14.0-18.0); Lymphocyte % 20.6 %; Mean Corpuscular HGB Conc 32 g/dL (31-36); Mean Corpuscular Hemoglobin 23 pg (27-31); Mean Corpuscular Volume 73 fL (80-94); Mean Platelet Volume 7.4 fL (7.4-10.4); Nucleated Red Blood Cells % 0.2; Platelet Count 266 10^3/uL (150-450); Red Blood Count 4.17 10^6 /uL (4.18-5.48); Red Cell Distribution Width 19 % (10.5-15); White Blood Count 4.8 10^3/uL (3.5-10.8)
[2018-11-30 08:12] LABS: BUN/Creatinine Ratio 24.1 (8-20); Calcium 8.7 mg/dL (8.6-10.3); EGFR African American 122.4 (>60); EGFR Non-African American 101.1 (>60); Potassium 3.5 mmol/L (3.5-5.0)
[2018-11-30] MEDS: Metoprolol Succinate XL TAB* 25 MG PO SCH (08:53)
[2018-11-30] MEDS: Magnesium Oxide TAB* 400 MG PO SCH (08:53)
[2018-11-30] MEDS: Lisinopril TAB* 5 MG PO SCH (08:53)
[2018-11-30] MEDS: Docusate CAP* 100 MG PO SCH ×2 (08:53→21:37)
[2018-11-30] MEDS ORDERED: Ferrous Sulfate TAB* 325 MG PO SCH (09:00)
[2018-11-30] MEDS: Furosemide IV* 10 MG/ML VIAL (40 MG) IV SCH ×2 (10:25→20:58)
[2018-11-30] MEDS ORDERED: Potassium Chlor TAB* 20 MEQ TAB.ER PO ONE (11:09)
--- NOTE | 2018-11-30 12:13 | PN ---
<Vianney Cain - Last Filed: 11/30/18 12:06> Subjective Date of Service: 11/30/18 - decompensated SHF, severe MR Interval History: No events last night, patient reports some improvement with lower extremity swelling, Scrotal edema is still bothersome as is abdominal distention. He denies chest pain, dizziness or palpitations. He states he is struggling with fluid restriction but adds he understands the importance. Medications Active Medications: Acetaminophen (Tylenol Tab*) 650 mg PO Q6H PRN PRN Reason: PAIN Last Admin: 11/30/18 00:39 Dose: 650 mg Docusate Sodium (Colace Cap*) 100 mg PO BID [facility] Last Admin: 11/30/18 08:53 Dose: Not Given Enoxaparin Sodium (Lovenox(*)) 40 mg SUBCUT Q24H [facility] Last Admin: 11/29/18 17:38 Dose: 40 mg Ferrous Sulfate (Ferrous Sulfate Tab*) 325 mg PO DAILY [facility] Last Admin: 11/30/18 08:53 Dose: 325 mg Furosemide (Lasix Iv*) 40 mg IV 1100,1800 [facility] Last Admin: 11/30/18 10:25 Dose: 40 mg Lisinopril (Prinivil Tab*) 2.5 mg PO DAILY [facility] Last Admin: 11/30/18 08:53 Dose: 2.5 mg Magnesium Oxide (Magox 400 Tab*) 800 mg PO DAILY [facility] Last Admin: 11/30/18 08:53 Dose: Not Given Metoprolol Succinate (Toprol Xl Tab*) 12.5 mg PO DAILY [facility] Last Admin: 11/30/18 08:53 Dose: 12.5 mg Objective Vital Signs: Temp Pulse Resp BP Pulse Ox 97.4 F 114 20 92/77 100 11/30/18 07:59 11/30/18 07:59 11/30/18 08:00 11/30/18 07:59 11/30/18 07:59 Oxygen Devices in Use Now: None Appearance: NAD, a+O x3, cooperative with exam. Eyes: - - + jaundiced sclera. Ears/Nose/Mouth/Throat: Mucous Membranes Moist Neck: - - + JPD Respiratory: Clear to Auscultation Cardiovascular: - - Tachy S1, S2, RRR, + gallop. + mitral murmur Abdominal: - - Distended, firm, normoactive BSX4 Extremities: - - 1+ pretibial edema bilaterally. Neurological: Alert and Oriented x 3 Lines/Tubes/Other Access: Clean, Dry and Intact York, Clean, Dry and Intact Peripheral IV Laboratory Results: 11/30/18 04:42 11/30/18 04:42 INR (Anticoag Therapy) 1.91 (0.82-1.09) H 11/29/18 05:37 Total Bilirubin 2.50 mg/dL (0.2-1.0) H 11/29/18 14:22 Direct Bilirubin 0.80 mg/dL (0.03-0.18) H 11/29/18 14:22 Indirect Bilirubin 1.7 mg/dL (0.3-1.0) H 11/29/18 14:22 AST 23 U/L (13-39) 11/29/18 05:24 ALT 12 U/L (7-52) 11/29/18 05:24 Alkaline Phosphatase 110 U/L (34-104) H 11/29/18 05:24 B-Natriuretic Peptide > 1300 pg/mL (<=100) H 11/29/18 05:24 Total Protein 7.9 g/dL (6.4-8.9) 11/29/18 05:24 Albumin 3.6 g/dL (3.2-5.2) 11/29/18 05:24 Globulin 4.3 g/dL (2-4) H 11/29/18 05:24 Albumin/Globulin Ratio 0.8 (1-3) L 11/29/18 05:24 11/29/18 05:24 Troponin I 0.01 Laboratory Results - last 24 hr 11/29/18 11/29/18 11/30/18 14:22 14:22 04:42 WBC RBC Hgb Hct MCV MCH MCHC RDW Plt Count MPV Neut % (Auto) Lymph % (Auto) [place] % (Auto) Eos % (Auto) Baso % (Auto) Absolute Neuts (auto) Absolute Lymphs (auto) Absolute Monos (auto) Absolute Eos (auto) Absolute Basos (auto) Absolute Nucleated RBC Nucleated RBC % Sodium 136 135 Potassium 3.6 3.5 Chloride 103 103 Carbon Dioxide 25 23 Anion Gap 8 9 BUN 19 20 Creatinine 0.87 0.83 Est GFR ( Amer) 115.9 122.4 Est GFR (Non-Af Amer) 95.8 101.1 BUN/Creatinine Ratio 21.8 H 24.1 H Glucose 140 H 102 H Lactic Acid 3.1 H* Calcium 8.8 8.7 Magnesium 2.0 Total Bilirubin 2.50 H Direct Bilirubin 0.80 H Indirect Bilirubin 1.7 H Lactate Dehydrogenase 217 11/30/18 04:42 WBC 4.8 RBC 4.17 L Hgb 9.6 L Hct 30 L MCV 73 L MCH 23 L MCHC 32 RDW 19 H Plt Count 266 MPV 7.4 Neut % (Auto) 68.7 Lymph % (Auto) 20.6 [place] % (Auto) 9.8 Eos % (Auto) 0.4 Baso % (Auto) 0.5 Absolute Neuts (auto) 3.3 Absolute Lymphs (auto) 1.0 Absolute Monos (auto) 0.5 Absolute Eos (auto) 0.0 Absolute Basos (auto) 0.0 Absolute Nucleated RBC 0.0 Nucleated RBC % 0.2 Sodium Potassium Chloride Carbon Dioxide Anion Gap BUN Creatinine Est GFR ( Amer) Est GFR (Non-Af Amer) BUN/Creatinine Ratio Glucose Lactic Acid Calcium Magnesium Total Bilirubin Direct Bilirubin Indirect Bilirubin Lactate Dehydrogenase Diagnostic Imaging: Patient Name: TYRONE CHAUDHARY Medical Record#: [id number] Ordering Physician: Faustino Varma MD Acct.#: [id number] : 1975 Age: 43 Sex: M Location: EMERGENCY DEPARTMENT Exam Date: 11/29/18 0457 ADM Status: REG ER Order Information: CHEST AP OR PORT Accession Number: [id number] CPT: 54424 HISTORY: CHF COMPARISONS: September 28, 2018 VIEWS: 1: frontal AP view of the chest at 5:01 AM FINDINGS: LINES AND TUBES: None. CARDIOMEDIASTINAL SILHOUETTE: The cardiac silhouette is enlarged. The cardiomediastinal silhouette is otherwise normal for portable technique. PLEURA: There is blunting of the right costophrenic angle. LUNG PARENCHYMA: There is confluent alveolar opacification of the right lower lung field that has progressed from the previous examination. ABDOMEN: The upper abdomen is clear. There is no subphrenic gas. BONES AND SOFT TISSUES: No bone or soft tissue abnormalities are noted. IMPRESSION: 1. CARDIOMEGALY. 2. PERSISTENT RIGHT LOWER LOBE CONSOLIDATION WITH A SMALL RIGHT PLEURAL EFFUSION. THIS HAS PROGRESSED SOMEWHAT FROM SEPTEMBER 28, 2018. THE PERSISTENCE FROM SEPTEMBER 2018 RAISES THE POSSIBILITY OF UNDERLYING PARENCHYMAL PATHOLOGY. RECOMMEND CONTINUED FOLLOW-UP UNTIL RESOLUTION OR CONSIDERATION OF CORRELATION WITH REPEAT CROSS-SECTIONAL IMAGING, INCLUDING PET/CT IN THE NONACUTE SETTING R2 Preliminary Imaging Read R2 <Electronically signed by Nilton Gurrola MD in [place]> 11/29/18737 Dictated By: Nilton Gurrola MD Dictated Date/Time: 11/29/18737 Transcribed Date/Time: 11/29/18735 Copy to: CC:Jamey Stein MD; Faustino Varma MD Imaging - [facility] Imaging - [facility] Imaging - [facility] This report is only to be considered final once signed by the Provider(s) as displayed in the "<Electronically Signed by >" field (s). Absence of a signature indicates the report is in a draft status and still needs to be finalized. In the event this document was created by someone other than the signing Provider, the individual initiating the document will be listed in the "Entered by:" or "Dictated by:" pepper. 1 of 2 EKG Data: 11/29/2018; Sinus tachycardia rate 117 with known lateral TW inversion Assessment/Plan #1 Decompensated SHF; LVEF < 20% per 07/2018 echo. + JVD, ascending edema now involving scrotum and abdomen. He is responding to IVD Lasix 40mg BID. Unable to increase Toprol 12.5mg/day due to SBP 92. Continue Lisinopril 2.5mg/day. I spoke with [employer] rep who states patient has started to wear lifevest more. He is to come in today to ensure adequate fit and help determine why the patient 's lifevest alarms which is the main reason why he doesn't wear it at night. Once optimized we will consider LHC. I reviewed this with the patient who states he will consider it. #2 Severe Mitral Insufficency; patient decompensated. Continue diuretics and Bblocker therapy. #3 Abnormal chest xray; per report there was a slight progression in RLL consolidation since September. I spoke with the hospitalist today who is to follow. #4 h/o Hyperbilirubineria and coagulapathy; presumed to be related to hepatic congestion. GI to see patient tomorrow. goal was eventual paracentesis with SAAG gradient. #5 Hypokalemia; K+ replaced with 40MEQ, he had a 4-5 beat count of NSVT yesterday with no reoccurrence. Keep K+> 4. #6 Disposition pending course. patient full code. I would like to increase Lasix to 60mg IV in am and 40mg IV at night. Patient requires close monitoring of hydrodynamics given severe LV dysfunction. Will d/w Dr. Ramirez. Attending: Bridgette Ramirez <Bridgette Ramirez - Last Filed: 11/30/18 21:04> Medications Active Medications: Acetaminophen (Tylenol Tab*) 650 mg PO Q6H PRN PRN Reason: PAIN Last Admin: 11/30/18 00:39 Dose: 650 mg Docusate Sodium (Colace Cap*) 100 mg PO BID [facility] Last Admin: 11/30/18 08:53 Dose: Not Given Enoxaparin Sodium (Lovenox(*)) 40 mg SUBCUT Q24H [facility] Last Admin: 11/30/18 19:07 Dose: 40 mg Ferrous Sulfate (Ferrous Sulfate Tab*) 325 mg PO DAILY [facility] Last Admin: 11/30/18 08:53 Dose: 325 mg Furosemide (Lasix Iv*) 60 mg IV DAILY [facility] Furosemide (Lasix Iv*) 40 mg IV DAILY@2000 [facility] Heparin Sodium (Porcine) (Heparin Flush Picc/Ml/Cvc(*)) 1 - 3 ml FLUSH 0600, 1800 NORY; Protocol Last Admin: 11/30/18 20:39 Dose: Not Given Potassium Chloride (Potassium Chloride 20 Meq/100 Ml Ivpremix*) 20 meq in 100 mls @ 50 mls/hr IV Q2H [facility] Stop: 11/30/18 22:29 Last Admin: 11/30/18 18:50 Dose: 50 mls/hr Lisinopril (Prinivil Tab*) 2.5 mg PO DAILY [facility] Last Admin: 11/30/18 08:53 Dose: 2.5 mg Magnesium Oxide (Magox 400 Tab*) 800 mg PO DAILY [facility] Last Admin: 11/30/18 08:53 Dose: Not Given Metoprolol Succinate (Toprol Xl Tab*) 12.5 mg PO DAILY [facility] Last Admin: 11/30/18 08:53 Dose: 12.5 mg Objective Vital Signs: Temp Pulse Resp BP Pulse Ox 98.0 F 107 18 88/67 100 11/30/18 12:18 11/30/18 16:34 11/30/18 16:34 11/30/18 16:34 11/30/18 16:34 Laboratory Results: 11/30/18 04:42 11/30/18 18:57 INR (Anticoag Therapy) 1.91 (0.82-1.09) H 11/29/18 05:37 Total Bilirubin 2.50 mg/dL (0.2-1.0) H 11/29/18 14:22 Direct Bilirubin 0.80 mg/dL (0.03-0.18) H 11/29/18 14:22 Indirect Bilirubin 1.7 mg/dL (0.3-1.0) H 11/29/18 14:22 AST 23 U/L (13-39) 11/29/18 05:24 ALT 12 U/L (7-52) 11/29/18 05:24 Alkaline Phosphatase 110 U/L (34-104) H 11/29/18 05:24 B-Natriuretic Peptide > 1300 pg/mL (<=100) H 11/29/18 05:24 Total Protein 7.9 g/dL (6.4-8.9) 11/29/18 05:24 Albumin 3.6 g/dL (3.2-5.2) 11/29/18 05:24 Globulin 4.3 g/dL (2-4) H 11/29/18 05:24 Albumin/Globulin Ratio 0.8 (1-3) L 11/29/18 05:24 11/29/18 05:24 Troponin I 0.01 Assessment/Plan I examined the patient personally and talked to the patient. His CC is increased weight and edema, no SOB. Exam as above, pleural effusions, increased abdominal girth/ascites, edema of the legs, appears cachexia. I agree with the above. My only other suggestion would be lowering loop diuretic, adding aldactone (was getting potassium as out patient, it appears he could tolerate) for his CM and fluid overload. In the big picture he is young, has severe CM, MR and would benefit from CHF specialty clinic if accepted.
--- NOTE | 2018-11-30 14:53 | PN ---
Subjective Date of Service: 11/30/18 Interval History: VS: tachycardia with mild hypotension Labs: anemia- stable Pt states that he is doing ok. He admits to trouble with fluid restriction and is concerned about followthrough at discharge. This was discussed at length- the importance of continued fluid restriction and monitor at discharge. Discussed possibility of heart cath while inpatient. He states that he is concerned about scrotal edema and does not want to have procedure with this still occurring. It was discussed that we would medically optimize prior to cath, which would likely lead to a decrease in edema. The patient states that he will think about it. Pt denies CP, SOB, cough, fever. Objective Active Medications: Acetaminophen (Tylenol Tab*) 650 mg PO Q6H PRN Docusate Sodium (Colace Cap*) 100 mg PO BID [facility] Enoxaparin Sodium (Lovenox(*)) 40 mg SUBCUT Q24H [facility] Ferrous Sulfate (Ferrous Sulfate Tab*) 325 mg PO DAILY [facility] Furosemide (Lasix Iv*) 60 mg IV DAILY [facility] Furosemide (Lasix Iv*) 40 mg IV DAILY@2000 [facility] Lisinopril (Prinivil Tab*) 2.5 mg PO DAILY [facility] Magnesium Oxide (Magox 400 Tab*) 800 mg PO DAILY [facility] Metoprolol Succinate (Toprol Xl Tab*) 12.5 mg PO DAILY [facility] Vital Signs: Temp Pulse Resp BP Pulse Ox 97.4 F 114 20 92/77 100 11/30/18 07:59 11/30/18 07:59 11/30/18 08:00 11/30/18 07:59 11/30/18 07:59 Oxygen Devices in Use Now: None Appearance: Pt is sitting in bed with HOB, LE elevated. He appears comfortable. He is in no acute distress. Eyes: PERRLA, - - Icterus Ears/Nose/Mouth/Throat: NL Teeth, Lips, Gums, Clear Oropharnyx, Mucous Membranes Moist Neck: Trachea Midline Respiratory: Symmetrical Chest Expansion and Respiratory Effort, Clear to Auscultation Cardiovascular: NL Sounds; No Murmurs; No JVD - Tachycardia. JVD. LE edema Abdominal: - - BS in all quadrant. Abd distended, firm, without fluid wave. Without TTP Extremities: No Clubbing, Cyanosis, - - Without UE edema. LE edema 2+, scrotal edema Neurological: Alert and Oriented x 3 Result Diagrams: 11/30/18 04:42 11/30/18 04:42 Assess/Plan/Problems-Billing Assessment: 43 yom PMHx severe systolic HF, severe mitral regurgitation, moderate pulm HTN, iron deficiency anemia, h/o sickle trait who presents with CHF exacerbation. - Patient Problems (1) CHF exacerbation Comment: -JVD, b/l LE edema; pt diuresing well with lasix; weight decreasing -Increase a.m. lasix to 60; continue p.m. lasix 40 -Continue daily weights, I/O -Heart healthy diet- low salt, fluid restriction 1.2L/d -[employer] consult ordered (2) Increased bilirubin level Comment: -Likely secondary to hepatic congestion -LDH WNL; direct and indirect bili elevated -Pt following with Dr. Rosa, who requests consultation for possible paracentesis, SAAG gradient once patient stabilized -Dr. Rosa consulted (3) Consolidation of right lower lobe of lung Comment: -CXR: persistent RLL consolidation with smal R pleural effusion progressed somewhat from September, -Denies cough, fever; without leukocytosis -Will pursue CT scan prior to discharge when pt able to lay flat -Will need to be followed up on outpatient (4) Elevated lactic acid level Comment: -No s/s infection- without leukocytosis, fever, cough, urinary complaints, diarrhea -Pt appears to be perfusing well- skin is warm, cap refill < 2sec, no evidence for FRANKLIN or hepatic injury (LFT WNL, except slight elevated Alk phos, elevated bili) -Will forgo fluid bolus in light of severe fluid overload/CHF exacerbation -Recheck in a.m. (5) Iron deficiency anemia Comment: -Start ferrous sulfate (6) DVT prophylaxis Comment: - SQ heparin (7) Full code status Status and Disposition: Inpatient. Discharge when stable.
[2018-11-30] MEDS: KCL 20 MEQ/100 ML IVPREMIX* 20 MEQ/100 ML BAG IV SCH ×2 (18:50→22:53)
[2018-11-30] MEDS: Enoxaparin(*) 40 MG/0.4 ML SYR SUBCUT SCH (19:07)
[2018-11-30 19:31] LABS: Magnesium 1.9 mg/dL (1.9-2.7); Potassium 3.6 mmol/L (3.5-5.0)
[2018-12-01 06:01] LABS: BUN/Creatinine Ratio 32.9 (8-20); Calcium 8.6 mg/dL (8.6-10.3); EGFR African American 141.9 (>60); EGFR Non-African American 117.3 (>60); Magnesium 1.8 mg/dL (1.9-2.7); Potassium 3.8 mmol/L (3.5-5.0)
[2018-12-01] MEDS ORDERED: Magnesium Sulfate 2 GM IV* 2 GM/50 ML BAG IVPB ONE (08:31)
[2018-12-01] MEDS ORDERED: Iron Sucrose* 200 MG in NS 0.9% 100 ML* 100 ML IVPB ONE (08:32)
[2018-12-01] MEDS ORDERED: Digoxin IV* 0.5 MG/2 ML AMP (0.25 MG/ML) IV SLOW PU ONE ×2 (08:41→20:00)
--- NOTE | 2018-12-01 08:44 | PN ---
Subjective Date of Service: 12/01/18 Interval History: f/u ADHF Breathing better Still volume overloaded eating breakfast No lightheadedness tele: sinus tachycardia Medications Active Medications: Acetaminophen (Tylenol Tab*) 650 mg PO Q6H PRN PRN Reason: PAIN Last Admin: 11/30/18 00:39 Dose: 650 mg Digoxin (Digoxin Iv*) 0.5 mg IV SLOW PU ONCE ONE Stop: 12/01/18 08:42 Docusate Sodium (Colace Cap*) 100 mg PO BID [facility] Last Admin: 11/30/18 21:37 Dose: Not Given Enoxaparin Sodium (Lovenox(*)) 40 mg SUBCUT Q24H [facility] Last Admin: 11/30/18 19:07 Dose: 40 mg Furosemide (Lasix Iv*) 60 mg IV DAILY [facility] Furosemide (Lasix Iv*) 40 mg IV DAILY@2000 [facility] Last Admin: 11/30/18 20:58 Dose: 40 mg Heparin Sodium (Porcine) (Heparin Flush Picc/Ml/Cvc(*)) 1 - 3 ml FLUSH 0600, 1800 [facility]; Protocol Last Admin: 12/01/18 05:39 Dose: 1 ml Magnesium Sulfate (Magnesium Sulfate 2 Gm Iv*) 2 gm in 50 mls @ 50 mls/hr IVPB ONCE ONE Stop: 12/01/18 09:30 Iron Sucrose 200 mg/ Sodium (Chloride) 110 mls @ 110 mls/hr IVPB ONCE ONE Stop: 12/01/18 09:31 Lisinopril (Prinivil Tab*) 2.5 mg PO DAILY [facility] Last Admin: 11/30/18 08:53 Dose: 2.5 mg Magnesium Oxide (Magox 400 Tab*) 800 mg PO DAILY [facility] Last Admin: 11/30/18 08:53 Dose: Not Given Metoprolol Succinate (Toprol Xl Tab*) 12.5 mg PO DAILY [facility] Last Admin: 11/30/18 08:53 Dose: 12.5 mg Spironolactone (Aldactone Tab*) 25 mg PO DAILY [facility] Objective Vital Signs: Temp Pulse Resp BP Pulse Ox 98.1 F 100 18 88/68 100 12/01/18 08:01 12/01/18 08:01 12/01/18 08:01 12/01/18 08:01 12/01/18 08:01 Oxygen Devices in Use Now: None Appearance: NAD, Eyes: - - + jaundiced sclera. Ears/Nose/Mouth/Throat: Mucous Membranes Moist Neck: - - uncertain jvp Respiratory: Clear to Auscultation Cardiovascular: - - tachycardic, regular, apical soft murmur Abdominal: No Hepatosplenomegaly, - - distended, non tender Extremities: - - diffuse edema 1+ of lower extremities Neurological: Alert and Oriented x 3 Lines/Tubes/Other Access: Clean, Dry and Intact [place], Clean, Dry and Intact Peripheral IV Laboratory Results: 11/30/18 04:42 12/01/18 05:20 INR (Anticoag Therapy) 1.91 (0.82-1.09) H 11/29/18 05:37 Total Bilirubin 2.50 mg/dL (0.2-1.0) H 11/29/18 14:22 Direct Bilirubin 0.80 mg/dL (0.03-0.18) H 11/29/18 14:22 Indirect Bilirubin 1.7 mg/dL (0.3-1.0) H 11/29/18 14:22 AST 23 U/L (13-39) 11/29/18 05:24 ALT 12 U/L (7-52) 11/29/18 05:24 Alkaline Phosphatase 110 U/L (34-104) H 11/29/18 05:24 B-Natriuretic Peptide > 1300 pg/mL (<=100) H 11/29/18 05:24 Total Protein 7.9 g/dL (6.4-8.9) 11/29/18 05:24 Albumin 3.6 g/dL (3.2-5.2) 11/29/18 05:24 Globulin 4.3 g/dL (2-4) H 11/29/18 05:24 Albumin/Globulin Ratio 0.8 (1-3) L 11/29/18 05:24 11/29/18 05:24 Troponin I 0.01 07/2018 labs ferritin 51, sat 6% EKG Data: 11/29/2018; Sinus tachycardia rate 117, TW inversion Assessment/Plan 1. Acute on chronic severe systolic HF 2. 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 HF related iron deficient anemia 4. Sinus tachycardia - compensatory, also anemic 5. Group II PH with RV failure - Continue current medications except: Add aldactone 25 mg po daily (ordered) Change oral iron to IV venofer and recheck ferritin tomorrow (ordered) Digoxin 500 mcg IV x 1 now (ordered) IV magnesium (ordered) Continue diuresis Will follow Thank you for allowing me to participate in the cardiovascular care of this patient. Please do not hesitate to contact me with questions or concerns
[2018-12-01] MEDS: Furosemide IV* 10 MG/ML 10 ML VIAL (100 MG) IV SCH (09:18)
[2018-12-01] MEDS: Lisinopril TAB* 5 MG PO SCH (09:34)
[2018-12-01] MEDS: Docusate CAP* 100 MG PO SCH ×2 (09:35→20:56)
[2018-12-01] MEDS: Metoprolol Succinate XL TAB* 25 MG PO SCH (09:35)
[2018-12-01] MEDS: Magnesium Oxide TAB* 400 MG PO SCH (09:35)
[2018-12-01] MEDS: Spironolactone TAB* 25 MG PO SCH (09:36)
--- NOTE | 2018-12-01 12:58 | PN ---
Subjective Date of Service: 12/01/18 Interval History: VS: Tachycardia, hypotension Labs: anemia- on iron supplementation; Mg 1.8- repleting; K WNL Pt states that he is feeling "desulfurizer machine" today, explaining that he feels his edema has decreased. We continue to discuss the plan, to-date, for his hospital stay, which includes thoracentesis, possible heart cath, and CT chest. He is agreeable to CT, but wants time to consider heart cath still. Discussed reasons for tests, and he seems to understand, although is insight is poor. He is more concerned about "them finding something that's not there" than he is about the reason for testing. He denies CP, SOB, abd pain, n/v/d/c. Objective Active Medications: Acetaminophen (Tylenol Tab*) 650 mg PO Q6H PRN PRN Reason: PAIN Last Admin: 11/30/18 00:39 Dose: 650 mg Docusate Sodium (Colace Cap*) [address] [facility] Last Admin: 12/01/18 09:35 Dose: Not Given Enoxaparin Sodium (Lovenox(*)) [address] [facility] Last Admin: 11/30/18 19:07 Dose: 40 mg Furosemide (Lasix Iv*) [address] [facility] Last Admin: 12/01/18 09:18 Dose: 60 mg Furosemide (Lasix Iv*) 40 mg IV DAILY@2000 [facility] Last Admin: 11/30/18 20:58 Dose: 40 mg Heparin Sodium (Porcine) (Heparin Flush Picc/Ml/Cvc(*)) 1 - 3 ml FLUSH 0600, 1800 [facility]; Protocol Last Admin: 12/01/18 05:39 Dose: 1 ml Lisinopril (Prinivil Tab*) 2.[address] [facility] Last Admin: 12/01/18 09:34 Dose: 2.5 mg Magnesium Oxide (Magox 400 Tab*) [address] [facility] Last Admin: 12/01/18 09:35 Dose: Not Given Metoprolol Succinate (Toprol Xl Tab*) 12.[address] [facility] Last Admin: 12/01/18 09:35 Dose: 12.5 mg Spironolactone (Aldactone Tab*) [address] [facility] Last Admin: 12/01/18 09:36 Dose: 25 mg Vital Signs - 8 hr 12/01/18 12/01/18 12/01/18 07:46 08:01 09:16 Temperature 98.1 F Pulse Rate 100 Respiratory 14 18 Rate Blood Pressure 88/68 98/62 (mmHg) O2 Sat by Pulse 100 Oximetry 12/01/18 12/01/18 09:25 11:37 Temperature 98.2 F Pulse Rate 104 96 Respiratory 18 Rate Blood Pressure 91/66 (mmHg) O2 Sat by Pulse 100 Oximetry Oxygen Devices in Use Now: None Eyes: PERRLA Ears/Nose/Mouth/Throat: NL Teeth, Lips, Gums, Mucous Membranes Moist Neck: Trachea Midline, - - JVD Respiratory: Symmetrical Chest Expansion and Respiratory Effort, Clear to Auscultation Cardiovascular: NL Sounds; No Murmurs; No JVD, RRR Abdominal: - - Protuberant abdomen; BS in all quadrants; soft, nontender to palpation Extremities: No Clubbing, Cyanosis, - - B/L LE and groin edema- decreasing Neurological: Alert and Oriented x 3 Result Diagrams: 12/03/18 05:06 12/05/18 04:27 Assess/Plan/Problems-Billing Assessment: 43 yom PMHx severe systolic HF, severe mitral regurgitation, moderate pulm HTN, iron deficiency anemia, h/o sickle trait who presents with CHF exacerbation. - Patient Problems (1) CHF exacerbation Comment: -JVD, b/l LE edema; pt diuresing well; weight decreasing- total loss 17#, intake < output -Lasix 60 a.m., 40 p.m.; aldactone added -Continue daily weights, I/O -Heart healthy diet- low salt, fluid restrict to 1.2L/d -[employer] consulted (2) Increased bilirubin level Comment: - Likely secondary to hepatic congestion -LDH WNL; direct and indirect bili elevated -Pt following with Dr. Rosa, who requests consultation for paracentesis, SAAG gradient -Paracentesis done today; results pending (3) Consolidation of right lower lobe of lung Comment: -CXR: persistent RLL consolidation with small R pleural effusion progressed somewhat from September, -Denies cough, fever; without leukocytosis -Chest CT in a.m. -Will need to be followed up on outpatient (4) Iron deficiency anemia Comment: - Pt denies symptoms -IV Venofer given (5) DVT prophylaxis Comment: - SQ heparin (6) Full code status Status and Disposition: Inpatient. Discharge when stable.
[2018-12-01] MEDS: Enoxaparin(*) 40 MG/0.4 ML SYR SUBCUT SCH (17:06)
--- NOTE | 2018-12-01 18:01 | CONS ---
CC: [facility]; Vianney Cain NP; Dr. Boris Robledo * CONSULTATION REPORT: DATE OF CONSULT: 12/01/18 REQUESTING PHYSICIAN: Dr. Jamey Stein. REASON FOR CONSULT: Hyperbilirubinemia, ascites. HISTORY OF PRESENT ILLNESS: This is a 43-year-old -[place] male with a past medical history of severe systolic congestive heart failure, valvular heart disease, who has had progressive lower extremity swelling. He has had difficulty with an outpatient regimen of controlling his congestive heart failure. There have been some barriers to care in terms of processing this diagnosis and understanding the relevant treatments despite multiple extensive explanations and arrangements made by multiple consultants. He had persistent edema and that eventually brought him into the emergency room along with the scrotal swelling. He had been to follow up with me in the office on 11/28/18 for discussion of his elevated bilirubin and his ascites and further workup of that. I had seen him on the previous admission back in July. He has no history of liver disease. He has no history of hepatitis. We performed a full serological workup on the previous admission that was negative for etiology. He denies any high-risk sexual behaviors. Denies any Tylenol use. Denies any nocturnal itching or pruritus. He admits that occasionally his urine is slightly darker. No changes to stool color. No diarrhea or constipation. He admits that his abdomen is slightly uncomfortable with distention and admits to lower extremity swelling and dyspnea along with weight gain. He denies any family history of liver disease. The remainder of the 14-point review of systems is grossly negative. PAST MEDICAL HISTORY: Congestive heart failure, sickle cell trait, possible pancreatitis, pulmonary hypertension. HOME MEDICATIONS: Include: 1. Lisinopril. 2. Docusate. 3. Metoprolol. 4. Lasix. 5. Potassium chloride. 6. Magnesium oxide. 7. Tylenol. ALLERGIES: Include ASPIRIN, which is an intolerance, has GI upset; NSAIDS, again GI upset. FAMILY HISTORY: One family member of a brain hemorrhage. The remainder of the family history is unremarkable per the patient. SOCIAL HISTORY: Former smoker. No alcohol use, never a heavy drinker. No drug use. REVIEW OF SYSTEMS: Remainder of the 14-point review of systems is grossly negative except for as described in the HPI. PHYSICAL EXAM: Vital Signs: Blood pressure is 91/66, pulse 96, respiratory rate 18, 100% on room air, 98.2 temperature. General: Alert, in no acute distress. HEENT: Atraumatic, normocephalic. Pupils equal, round, reactive to light. Mild scleral icterus noted. Lungs: Trace rales, left greater than right. Cardiac: Tachycardic. S1, S2. Abdomen: Soft, slightly distended. Bowel sounds positive. Positive shifting dullness. No guarding or rebound. Extremities: Anasarca and scrotal edema. Neurologic: Moving all extremities. Skin: No rashes or lesions. Psych: Flat affect. LABORATORY DATA: WBC count 4.8, hemoglobin 9.6, MCV 73, platelet count is 266. INR 1.91. Sodium 137, potassium 3.8, chloride 107, BUN is 24, creatinine 0.73, glucose 99, calcium 8.6, magnesium 1.8. T bili 2.5; his peak had been in September where he was 3.80. The majority of this is indirect at 2:1 ratio. AST 23, ALT is 12, alkaline phosphatase 110. LDH 217. On the prior admission, he had a hepatitis panel, which was negative along with HIV. Antinuclear antibody was negative. Antimitochondrial antibody was negative. Anti-smooth muscle antibody was negative. Tissue transglutaminase IgA was negative with an appropriate IgA level. Ceruloplasmin was not low. Iron studies were not consistent with hemochromatosis, in fact they show iron-deficiency anemia. ASSESSMENT AND RECOMMENDATIONS: This is a 43-year-old male with history of severe systolic congestive heart failure, barriers to care including understanding of his care and possible sickle trait, who presents with moderately elevated bilirubin chronically along with ascites. 1. Ascites. Suspect this is cardiac ascites in etiology; however, a paracentesis should be done to calculate a SAAG gradient and to exclude cytology results for malignancy. In addition, we would recommend given the erratic history, an AFB acid- fast stain to rule out tuberculosis within the ascitic fluid. We will also calculate his SAAG gradient with the albumin and protein. A Gram stain and a cell count would also be beneficial. I have contacted the surgical service to arrange this. 2. Elevated bilirubin. No clear etiology defined. If persistently elevated, may need eventual biopsy. Given his severe cardiac issues and elevated INR, this may be better served in the tertiary care center where they can do a transjugular approach and if he is ultimately referred to [place] for a CHF Clinic, it may be beneficial for him to see Hepatology up there to consider this along with venous pressures that could determine the true etiology of his ascites. In the meantime, I recommend obtaining a paracentesis and analysis here, which will certainly provide more information for a workup. 3. Severe systolic congestive heart failure. Per Cardiology and hospitalist team. 4. Sickle trait. 5. Elevated INR, likely secondary to hepatic congestion. Another vitamin K trial may be appropriate. 6. Iron-deficiency anemia. Eventually, the patient does need panendoscopy, but given his current cardiopulmonary condition, he is extremely high risk for endoscopy. We would wait until his cardiopulmonary status is better controlled before considering. [id number]/[facility] #: [id number] SHIELA
[2018-12-01] MEDS: Furosemide IV* 10 MG/ML VIAL (40 MG) IV SCH (20:50)
[2018-12-01] MEDS: Acetaminophen TAB* 325 MG PO PRN (20:52)
[2018-12-02 06:38] LABS: ABS Lymphocytes 0.6 10^3/ul (1.0-4.8); ABS Monocytes 0.5 10^3/ul (0-0.8); ABS Neutrophils 3.2 10^3/ul (1.5-7.7); Eosinophil % 0.9 %; Hematocrit 32 % (42-52); Hemoglobin 10.1 g/dL (14.0-18.0); Mean Corpuscular HGB Conc 31 g/dL (31-36); Mean Corpuscular Hemoglobin 23 pg (27-31); Mean Corpuscular Volume 73 fL (80-94); Mean Platelet Volume 7.6 fL (7.4-10.4); Nucleated Red Blood Cells % 0.2; Platelet Count 277 10^3/uL (150-450); Red Blood Count 4.45 10^6 /uL (4.18-5.48); Red Cell Distribution Width 20 % (10.5-15); White Blood Count 4.4 10^3/uL (3.5-10.8)
[2018-12-02 06:47] LABS: BUN/Creatinine Ratio 31.5 (8-20); Calcium 8.5 mg/dL (8.6-10.3); EGFR African American 141.9 (>60); EGFR Non-African American 117.3 (>60); Magnesium 1.9 mg/dL (1.9-2.7); Potassium 3.5 mmol/L (3.5-5.0)
[2018-12-02 07:36] LABS: Ferritin 74.3 ng/mL (24-336)
--- NOTE | 2018-12-02 09:28 | PN ---
Progress Note - Progress Note Date of Service: 12/02/18 Note: Surgery I spoke to Mr. Thurston prior to the planned procedure, paracentesis. He did not recall that a plan for paracentesis had been made so he declined to proceed at this time. He indicated he would be willing to have the procedure later this morning. I explained that timing would depend on OR availability. I explained to him the nature of the procedure, risks, benefits, and alternatives. He understood and agreed, but for later today. Nick
[2018-12-02] MEDS: Lisinopril TAB* 5 MG PO SCH (09:33)
[2018-12-02] MEDS: Docusate CAP* 100 MG PO SCH ×2 (09:33→20:36)
[2018-12-02] MEDS: Metoprolol Succinate XL TAB* 25 MG PO SCH (09:33)
[2018-12-02] MEDS: Spironolactone TAB* 25 MG PO SCH (09:33)
[2018-12-02] MEDS: Furosemide IV* 10 MG/ML 10 ML VIAL (100 MG) IV SCH (09:34)
[2018-12-02] MEDS: Magnesium Oxide TAB* 400 MG PO SCH (09:34)
[2018-12-02] MEDS ORDERED: Bacitracin OINTMENT* 0.5% 0.5 oz TUBE ONE (11:53)
[2018-12-02 12:24] LABS: Body Fluid Source Peritonial Fluid
[2018-12-02 13:50] LABS: Body Fluid Mono 75 %; Body Fluid Other Cells 9
[2018-12-02] MEDS ORDERED: Digoxin IV* 0.5 MG/2 ML AMP (0.25 MG/ML) IV SLOW PU ONE (14:45)
[2018-12-02] MEDS ORDERED: Iron Sucrose* 200 MG in NS 0.9% 100 ML* 100 ML IVPB ONE (14:46)
--- NOTE | 2018-12-02 14:47 | PN ---
Subjective Date of Service: 12/02/18 Interval History: f/u ADHF Breathing better, not perfect s/p paracentesis Still volume overloaded No lightheadedness Diuresing well Tele SR ~90 bpm, ~SBP 100 bpm 13 beat NSVT evening of 11/30, has not wanted WCD Medications Active Medications: Acetaminophen (Tylenol Tab*) 650 mg PO Q6H PRN PRN Reason: PAIN Last Admin: 12/01/18 20:52 Dose: 650 mg Digoxin (Digoxin Iv*) 0.25 mg IV SLOW PU ONCE ONE Stop: 12/02/18 14:46 Docusate Sodium (Colace Cap*) 100 mg PO BID [facility] Last Admin: 12/02/18 09:33 Dose: Not Given Enoxaparin Sodium (Lovenox(*)) 40 mg SUBCUT Q24H [facility] Last Admin: 12/01/18 17:06 Dose: 40 mg Furosemide (Lasix Iv*) 60 mg IV DAILY [facility] Last Admin: 12/02/18 09:34 Dose: 60 mg Heparin Sodium (Porcine) (Heparin Flush Picc/Ml/Cvc(*)) 1 - 3 ml FLUSH 0600, 1800 [facility]; Protocol Last Admin: 12/02/18 04:56 Dose: 1 ml Iron Sucrose 200 mg/ Sodium (Chloride) 110 mls @ 110 mls/hr IVPB ONCE ONE Stop: 12/02/18 15:45 Lisinopril (Prinivil Tab*) 5 mg PO DAILY [facility] Last Admin: 12/02/18 09:33 Dose: 5 mg Magnesium Oxide (Magox 400 Tab*) 800 mg PO DAILY [facility] Last Admin: 12/02/18 09:34 Dose: 800 mg Metoprolol Succinate (Toprol Xl Tab*) 25 mg PO DAILY [facility] Last Admin: 12/02/18 09:33 Dose: 25 mg Spironolactone (Aldactone Tab*) 25 mg PO DAILY [facility] Last Admin: 12/02/18 09:33 Dose: 25 mg Objective Vital Signs: Temp Pulse Resp BP Pulse Ox 98.0 F 98 14 98/76 100 12/02/18 12:28 12/02/18 12:28 12/02/18 12:28 12/02/18 12:28 12/02/18 12:28 Oxygen Devices in Use Now: None Appearance: NAD, Eyes: - - + jaundiced sclera. Ears/Nose/Mouth/Throat: Mucous Membranes Moist Neck: - - + jvd Respiratory: Clear to Auscultation Cardiovascular: - - RRR, soft apical murmur Abdominal: No Hepatosplenomegaly, - - distended, non tender Extremities: - - mild edema lower extremities, improved Neurological: Alert and Oriented x 3 Lines/Tubes/Other Access: Clean, Dry and Intact [place], Clean, Dry and Intact Peripheral IV Laboratory Results: 12/02/18 04:56 12/02/18 04:56 INR (Anticoag Therapy) 1.91 (0.82-1.09) H 11/29/18 05:37 Total Bilirubin 2.50 mg/dL (0.2-1.0) H 11/29/18 14:22 Direct Bilirubin 0.80 mg/dL (0.03-0.18) H 11/29/18 14:22 Indirect Bilirubin 1.7 mg/dL (0.3-1.0) H 11/29/18 14:22 AST 23 U/L (13-39) 11/29/18 05:24 ALT 12 U/L (7-52) 11/29/18 05:24 Alkaline Phosphatase 110 U/L (34-104) H 11/29/18 05:24 B-Natriuretic Peptide > 1300 pg/mL (<=100) H 11/29/18 05:24 Total Protein 7.9 g/dL (6.4-8.9) 11/29/18 05:24 Albumin 3.6 g/dL (3.2-5.2) 11/29/18 05:24 Globulin 4.3 g/dL (2-4) H 11/29/18 05:24 Albumin/Globulin Ratio 0.8 (1-3) L 11/29/18 05:24 11/29/18 05:24 Troponin I 0.01 ferritin 74.3 mg 1.9 Diagnostic Imaging: HISTORY: CHF COMPARISONS: September 28, 2018 VIEWS: 1: frontal AP view of the chest at 5:01 AM FINDINGS: LINES AND TUBES: None. CARDIOMEDIASTINAL SILHOUETTE: The cardiac silhouette is enlarged. The cardiomediastinal silhouette is otherwise normal for portable technique. PLEURA: There is blunting of the right costophrenic angle. LUNG PARENCHYMA: There is confluent alveolar opacification of the right lower lung field that has progressed from the previous examination. ABDOMEN: The upper abdomen is clear. There is no subphrenic gas. BONES AND SOFT TISSUES: No bone or soft tissue abnormalities are noted. IMPRESSION: 1. CARDIOMEGALY. 2. PERSISTENT RIGHT LOWER LOBE CONSOLIDATION WITH A SMALL RIGHT PLEURAL EFFUSION. THIS HAS PROGRESSED SOMEWHAT FROM SEPTEMBER 28, 2018. THE PERSISTENCE FROM SEPTEMBER 2018 RAISES THE POSSIBILITY OF UNDERLYING PARENCHYMAL PATHOLOGY. RECOMMEND CONTINUED FOLLOW-UP UNTIL RESOLUTION OR CONSIDERATION OF CORRELATION WITH REPEAT CROSS-SECTIONAL IMAGING, INCLUDING PET/CT IN THE NONACUTE SETTING EKG Data: 11/29/2018; Sinus tachycardia rate 117, TW inversion Assessment/Plan 1. Acute on chronic severe systolic HF - LVEDD ~ 7 cm 2. 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 HF related iron deficient anemia 4. Group II PH with RV failure - Continue current medications except - Increase lisinopril from 2.5 to 5 mg po daily - Increase metoprolol succinate from 12.5 to 25 mg po daily - Given another 200 mg IV venofer today - Complete 1000 mcg IV digoxin load with 250 mcg x 1 now - Hold evening IV lasix, continue iv diuresis, will change to torsemide once po - 2 grams IV mag x 1 today - Above orders placed - Will follow Thank you for allowing me to participate in the cardiovascular care of this patient. Please do not hesitate to contact me with questions or concerns
[2018-12-02] MEDS ORDERED: Magnesium Sulfate 2 GM IV* 2 GM/50 ML BAG IVPB ONE (15:00)
[2018-12-02] MEDS: Enoxaparin(*) 40 MG/0.4 ML SYR SUBCUT SCH (16:49)
--- NOTE | 2018-12-02 18:03 | PN ---
Subjective Date of Service: 12/02/18 Interval History: VS: tachy and trending down; hypotension trending up Lab: H/H trending up Pt states he is doing well. Seen after paracentesis, which he states went well. Plan for CT scan in morning, due to abnormality on CXR, which he is agreeable to. Pt continue to worry about scrotal edema. Objective Active Medications: Acetaminophen (Tylenol Tab*) 650 mg PO Q6H PRN Docusate Sodium (Colace Cap*) 100 mg PO BID [facility] Enoxaparin Sodium (Lovenox(*)) 40 mg SUBCUT Q24H [facility] Heparin Sodium (Porcine) (Heparin Flush Picc/Ml/Cvc(*)) 1 - 3 ml FLUSH 0600, 1800 [facility]; Protocol Lisinopril (Prinivil Tab*) 5 mg PO DAILY [facility] Magnesium Oxide (Magox 400 Tab*) 800 mg PO DAILY [facility] Metoprolol Succinate (Toprol Xl Tab*) 25 mg PO DAILY [facility] Spironolactone (Aldactone Tab*) 25 mg PO DAILY [facility] Torsemide (Demadex*) 40 mg PO DAILY [facility] Vital Signs: Temp Pulse Resp BP Pulse Ox 97.7 F 92 21 101/74 100 12/02/18 13:01 12/02/18 15:10 12/02/18 13:01 12/02/18 13:01 12/02/18 13:01 Oxygen Devices in Use Now: None Appearance: Pt is laying in bed with HOB, LE elevated. He is comfortable, talkative. He is in no acute distress. Eyes: No Scleral Icterus, PERRLA Ears/Nose/Mouth/Throat: NL Teeth, Lips, Gums, Clear Oropharnyx, Mucous Membranes Moist Neck: Trachea Midline, - - JVP, although decreased Respiratory: Symmetrical Chest Expansion and Respiratory Effort, Clear to Auscultation Cardiovascular: RRR, - - No murmur noted. Edema in b/l LE is 1+ pitting; scrotal edema. Abdominal: - - Abd distended. BS in all quadrants. No TTP. Neurological: Alert and Oriented x 3 Result Diagrams: 12/02/18 04:56 12/02/18 04:56 Microbiology and Other Data: Microbiology 12/02/18 12:00 Gram Stain - Final Body Fluid Assess/Plan/Problems-Billing Assessment: 43 yom PMHx severe systolic HF, severe mitral regurgitation, moderate pulm HTN, iron deficiency anemia, h/o sickle trait who presents with CHF exacerbation. - Patient Problems (1) CHF exacerbation Comment: -JVD, b/l LE edema; pt diuresing well with lasix; weight decreasing- total loss 17#; intake < output -Increase a.m. lasix to 60; continue p.m. lasix 40; card added aldactone -Continue daily weights, I/O -Heart healthy diet- low salt, fluid restriction 1.2L/d -Manager Language consulted (2) Increased bilirubin level Comment: -Likely secondary to hepatic congestion -LDH WNL; direct and indirect bili elevated -Pt following with Dr. Rosa, who requests consultation for possible paracentesis, SAAG gradient once patient stabilized -Paracentesis done today; results pending (3) Consolidation of right lower lobe of lung Comment: -CXR: persistent RLL consolidation with smal R pleural effusion progressed somewhat from September, -Denies cough, fever; without leukocytosis -Chest CT in a.m. -Will need to be followed up on outpatient (4) Electrolyte abnormality Comment: -Continue to monitor and replete K, Mg (5) Elevated lactic acid level Comment: -Resolved -No s/s infection- without leukocytosis, fever, cough, urinary complaints, diarrhea -Pt appears to be perfusing well- skin is warm, cap refill < 2sec, no evidence for FRANKLIN or hepatic injury (LFT WNL, except slight elevated Alk phos, elevated bili) -Will forgo fluid bolus in light of severe fluid overload/CHF exacerbation -Recheck is WNL (6) Iron deficiency anemia Comment: -Pt denies symptoms; tachycardia -IV Venofer (7) DVT prophylaxis Comment: - SQ heparin (8) Full code status Status and Disposition: Inpatient. Discharge when stable.
[2018-12-02] MEDS: KCL 20 MEQ/100 ML IVPREMIX* 20 MEQ/100 ML BAG IV SCH ×2 (18:24→20:35)
[2018-12-03 05:35] LABS: Hematocrit 31 % (42-52); Hemoglobin 9.8 g/dL (14.0-18.0)
[2018-12-03 05:50] LABS: Magnesium 2.2 mg/dL (1.9-2.7)
[2018-12-03] MEDS ORDERED: Torsemide TAB 10 MG PO SCH (09:00)
--- NOTE | 2018-12-03 09:34 | PN ---
Subjective Date of Service: 12/03/18 Interval History: f/u ADHF Breathing better Still volume overloaded No lightheadedness Diuresing well tele SR 90-110's, no arrhythmias overnight Medications Active Medications: Acetaminophen (Tylenol Tab*) 650 mg PO Q6H PRN PRN Reason: PAIN Last Admin: 12/01/18 20:52 Dose: 650 mg Docusate Sodium (Colace Cap*) 100 mg PO BID [facility] Last Admin: 12/02/18 20:36 Dose: Not Given Enoxaparin Sodium (Lovenox(*)) 40 mg SUBCUT Q24H [facility] Last Admin: 12/02/18 16:49 Dose: 40 mg Heparin Sodium (Porcine) (Heparin Flush Picc/Ml/Cvc(*)) 1 - 3 ml FLUSH 0600, 1800 [facility]; Protocol Last Admin: 12/03/18 05:00 Dose: 1 ml Lisinopril (Prinivil Tab*) 5 mg PO DAILY [facility] Last Admin: 12/02/18 09:33 Dose: 5 mg Magnesium Oxide (Magox 400 Tab*) 800 mg PO DAILY [facility] Last Admin: 12/02/18 09:34 Dose: 800 mg Metoprolol Succinate (Toprol Xl Tab*) 25 mg PO DAILY [facility] Last Admin: 12/02/18 09:33 Dose: 25 mg Spironolactone (Aldactone Tab*) 25 mg PO DAILY [facility] Last Admin: 12/02/18 09:33 Dose: 25 mg Torsemide (Torsemide) 40 mg PO DAILY [facility] Objective Vital Signs: Temp Pulse Resp BP Pulse Ox 98.5 F 94 16 99/72 100 12/03/18 04:14 12/03/18 04:14 12/03/18 04:14 12/03/18 04:14 12/03/18 04:14 Oxygen Devices in Use Now: None Appearance: NAD Eyes: - Neck: - - + jvd Respiratory: - - crackles r base Cardiovascular: - - RRR, soft apical murmur Abdominal: No Hepatosplenomegaly, - - mild distended, nontender Extremities: - - minimal lower extremity edema, improved Neurological: Alert and Oriented x 3 Lines/Tubes/Other Access: Clean, Dry and Intact [place], Clean, Dry and Intact Peripheral IV Laboratory Results: 12/03/18 05:06 12/03/18 05:06 INR (Anticoag Therapy) 1.91 (0.82-1.09) H 11/29/18 05:37 Total Bilirubin 2.50 mg/dL (0.2-1.0) H 11/29/18 14:22 Direct Bilirubin 0.80 mg/dL (0.03-0.18) H 11/29/18 14:22 Indirect Bilirubin 1.7 mg/dL (0.3-1.0) H 11/29/18 14:22 AST 23 U/L (13-39) 11/29/18 05:24 ALT 12 U/L (7-52) 11/29/18 05:24 Alkaline Phosphatase 110 U/L (34-104) H 11/29/18 05:24 B-Natriuretic Peptide > 1300 pg/mL (<=100) H 11/29/18 05:24 Total Protein 7.9 g/dL (6.4-8.9) 11/29/18 05:24 Albumin 3.6 g/dL (3.2-5.2) 11/29/18 05:24 Globulin 4.3 g/dL (2-4) H 11/29/18 05:24 Albumin/Globulin Ratio 0.8 (1-3) L 11/29/18 05:24 11/29/18 05:24 Troponin I 0.01 mg 2.0 Diagnostic Imaging: Exam Date: 12/02/181803 ADM Status: ADM IN CT Chest Without Contrast COMPARISON: CTA CHEST CTA CHEST 09/28/2018 11:36 PM Lymph nodes: Normal. No enlarged lymph nodes. IMPRESSION: 1. Stable right pleural effusion and associated right lower lobe only loss. 2. Left ventricular failure. EKG Data: 11/29/2018; Sinus tachycardia rate 117, TW inversion Assessment/Plan 1. Acute on chronic severe systolic HF - LVEDD ~ 7 cm 2. 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 HF related iron deficient anemia - s/p 200 mg IV venofer x 2 4. Group II PH with RV failure - Needs hgb, tsat, ferritin in 2-3 weeks. Would not discharge on oral iron - Continue lisinopril, increase from 5 to 10 mg po daily (order) - Continue toprol 25 mg po daily - Continue torsemide 40 mg po daily, first day oral trend i/o adjust as needed, continue diuresis - Continue spironolactone 25 mg po daily Thank you for allowing me to participate in the cardiovascular care of this patient. Please do not hesitate to contact me with questions or concerns
[2018-12-03 09:55] LABS: BUN/Creatinine Ratio 37.5 (8-20); Calcium 8.7 mg/dL (8.6-10.3); EGFR African American 165.2 (>60); EGFR Non-African American 136.5 (>60); Potassium 4.1 mmol/L (3.5-5.0)
[2018-12-03] MEDS: Metoprolol Succinate XL TAB* 25 MG PO SCH (11:07)
[2018-12-03] MEDS: Lisinopril TAB* 5 MG PO SCH ×2 (11:07→11:54)
[2018-12-03] MEDS: Spironolactone TAB* 25 MG PO SCH (11:07)
[2018-12-03] MEDS: Docusate CAP* 100 MG PO SCH ×3 (11:07→20:11)
[2018-12-03] MEDS: Magnesium Oxide TAB* 400 MG PO SCH (11:08)
[2018-12-03 13:46] LABS: Lactate Dehydrogenase, BF 111 U/L
[2018-12-03] MEDS: Enoxaparin(*) 40 MG/0.4 ML SYR SUBCUT SCH (16:04)
--- NOTE | 2018-12-03 17:19 | PN ---
Subjective Date of Service: 12/03/18 Interval History: Resting in bed on assessment. Denies cp, sob, palpitations, nausea, vomiting, diarrhea. Objective Active Medications: Acetaminophen (Tylenol Tab*) 650 mg PO Q6H PRN PRN Reason: PAIN Last Admin: 12/01/18 20:52 Dose: 650 mg Docusate Sodium (Colace Cap*) 100 mg PO BID [facility] Last Admin: 12/03/18 11:09 Dose: Not Given Enoxaparin Sodium (Lovenox(*)) 40 mg SUBCUT Q24H [facility] Last Admin: 12/03/18 16:04 Dose: 40 mg Heparin Sodium (Porcine) (Heparin Flush Picc/Ml/Cvc(*)) 1 - 3 ml FLUSH 0600, 1800 [facility]; Protocol Last Admin: 12/03/18 16:55 Dose: 1 ml Lisinopril (Prinivil Tab*) 10 mg PO DAILY [facility] Last Admin: 12/03/18 11:07 Dose: 10 mg Magnesium Oxide (Magox 400 Tab*) 800 mg PO DAILY [facility] Last Admin: 12/03/18 11:08 Dose: 800 mg Metoprolol Succinate (Toprol Xl Tab*) 25 mg PO DAILY [facility] Last Admin: 12/03/18 11:07 Dose: 25 mg Spironolactone (Aldactone Tab*) 25 mg PO DAILY [facility] Last Admin: 12/03/18 11:07 Dose: 25 mg Torsemide (Torsemide) 40 mg PO DAILY [facility] Last Admin: 12/03/18 11:07 Dose: 40 mg Vital Signs - 8 hr 12/03/18 12/03/18 12/03/18 10:32 12:02 15:30 Temperature 97.7 F 98.3 F 97.8 F Pulse Rate 88 90 91 Respiratory 16 16 16 Rate Blood Pressure 99/70 100/72 99/70 (mmHg) O2 Sat by Pulse 100 100 100 Oximetry Oxygen Devices in Use Now: None Appearance: Comfortable, NAD, midly hyperverbal. Eyes: No Scleral Icterus Ears/Nose/Mouth/Throat: Clear Oropharnyx, Mucous Membranes Moist Neck: NL Appearance and Movements; NL JVP Respiratory: Symmetrical Chest Expansion and Respiratory Effort, Clear to Auscultation Cardiovascular: NL Sounds; No Murmurs; No JVD, RRR, No Edema Abdominal: NL Sounds; No Tenderness; No Distention Lymphatic: No Cervical Adenopathy Extremities: No Clubbing, Cyanosis Skin: - - Dressing to right abd cdi Neurological: Alert and Oriented x 3, NL Muscle Strength and Tone Nutrition: Taking PO's Result Diagrams: 12/03/18 05:06 12/03/18 05:06 Additional Lab and Data: Laboratory Results - last 24 hr 12/02/18 12/02/18 12/02/18 12:00 12:00 12:00 Hgb Hct Sodium Potassium Chloride Carbon Dioxide Anion Gap BUN Creatinine Est GFR ( Amer) Est GFR (Non-Af Amer) BUN/Creatinine Ratio Glucose Calcium Magnesium Fluid Source Peeritoneal Peritoneal Fluid Total Protein 4.3 Fluid LDH 111 Miscellaneous Test See comment 12/03/18 12/03/18 05:06 05:06 Hgb 9.8 L Hct 31 L Sodium 140 Potassium 4.1 Chloride 107 Carbon Dioxide 29 Anion Gap 4 BUN 24 Creatinine 0.64 L Est GFR ( Amer) 165.2 Est GFR (Non-Af Amer) 136.5 BUN/Creatinine Ratio 37.5 H Glucose 79 Calcium 8.7 Magnesium 2.2 Fluid Source Fluid Total Protein Fluid LDH Miscellaneous Test Microbiology and Other Data: . Assess/Plan/Problems-Billing Assessment: 43 yom PMHx severe systolic HF, severe mitral regurgitation, moderate pulm HTN, iron deficiency anemia, h/o sickle trait who presents with CHF exacerbation. - Patient Problems (1) CHF exacerbation Comment: - + JVD, scant LE edema - Diuresed well with lasix - Was on Lasix previously, but now on toresmide and aldactone per cards - Continue daily weights, I/O - Heart healthy diet- low salt, fluid restriction discontinued today by Dr Mcgrath (2) Acute on chronic systolic (congestive) heart failure Comment: - Did have LifeVest, but was not wearing it when admitted. This will need to be readdress prior to discharge - Load on Digoxin by cardiology - On diuretics and nargis - Discussed cardiac cath which patient previously declined and he reports he declined as it did not work with his schedule (3) Consolidation of right lower lobe of lung Comment: -CXR: persistent RLL consolidation with smal R pleural effusion progressed somewhat from September, -Denies cough, fever; without leukocytosis -Chest CT reports stable R pleural effusion -Will need to be followed up on outpatient (4) Electrolyte abnormality Comment: -Continue to monitor and replete K, Mg (5) Iron deficiency anemia Comment: - Pt denies symptoms; tachycardia intermittently - Previously received IV Venofer - Per cardiology will need hgb, tsat, ferritin in 2 to 3 wks. Also recommends not discharging patient on oral iron (6) Increased bilirubin level Comment: - Likely secondary to hepatic congestion - LDH WNL; direct and indirect bili elevated; Repeat tomorrow - Dr. Rosa consulting and paracentesis completed. Results pending (7) Full code status (8) DVT prophylaxis Comment: - SQ heparin Status and Disposition: Inpatient. Discharge when stable. Attending: Jamey Stein
[2018-12-04 05:03] LABS: Albumin/Globulin Ratio 0.8 (1-3); BUN/Creatinine Ratio 31.4 (8-20); Calcium 8.9 mg/dL (8.6-10.3); EGFR African American 117.4 (>60); EGFR Non-African American 97.1 (>60); Globulin 3.8 g/dL (2-4); Indirect Bilirubin 0.7 mg/dL (0.3-1.0); Magnesium 1.8 mg/dL (1.9-2.7); Potassium 4.1 mmol/L (3.5-5.0); Total Bilirubin 1.1 mg/dL (0.2-1.0); Total Protein 6.8 g/dL (6.4-8.9)
[2018-12-04] MEDS ORDERED: Metoprolol Succinate XL TAB* 50 MG PO SCH (09:00)
[2018-12-04] MEDS ORDERED: Digoxin TAB* 0.125 MG PO SCH (09:00)
[2018-12-04] MEDS ORDERED: Magnesium Sulfate IV* 3 GM in NS 0.9% 100 ML* 100 ML IVPB ONE (09:00)
[2018-12-04] MEDS: Torsemide TAB 10 MG PO SCH (09:10)
[2018-12-04] MEDS: Metoprolol Succinate XL TAB* 50 MG PO SCH (09:10)
[2018-12-04] MEDS: Lisinopril TAB* 5 MG PO SCH (09:11)
[2018-12-04] MEDS: Magnesium Oxide TAB* 400 MG PO SCH (09:11)
[2018-12-04] MEDS: Spironolactone TAB* 25 MG PO SCH (09:11)
[2018-12-04] MEDS: Docusate CAP* 100 MG PO SCH ×2 (09:22→20:20)
--- NOTE | 2018-12-04 10:41 | PN ---
Subjective Date of Service: 12/04/18 Interval History: f/u ADHF Breathing better Still volume overloaded No lightheadedness Diuresed extremely well > 6 Liters with 40 oral torsemide, fluid restriction removed. tele SR 90-110's, 5 beat NSVT, mg 1.8 will replace iv Medications Active Medications: Acetaminophen (Tylenol Tab*) 650 mg PO Q6H PRN PRN Reason: PAIN Last Admin: 12/01/18 20:52 Dose: 650 mg Digoxin (Lanoxin Tab*) 0.125 mg PO EVERY OTHER DAY [facility] Last Admin: 12/04/18 09:10 Dose: 0.125 mg Docusate Sodium (Colace Cap*) 100 mg PO BID [facility] Last Admin: 12/04/18 09:22 Dose: Not Given Enoxaparin Sodium (Lovenox(*)) 40 mg SUBCUT Q24H [facility] Last Admin: 12/03/18 16:04 Dose: 40 mg Heparin Sodium (Porcine) (Heparin Flush Picc/Ml/Cvc(*)) 1 - 3 ml FLUSH 0600, 1800 [facility]; Protocol Last Admin: 12/04/18 04:31 Dose: 1 ml Magnesium Sulfate 3 gm/ Sodium (Chloride) 106 mls @ 53 mls/hr IVPB ONCE ONE Stop: 12/04/18 10:59 Last Admin: 12/04/18 09:22 Dose: 53 mls/hr Lisinopril (Prinivil Tab*) 10 mg PO DAILY [facility] Last Admin: 12/04/18 09:11 Dose: 10 mg Magnesium Oxide (Magox 400 Tab*) 800 mg PO DAILY [facility] Last Admin: 12/04/18 09:11 Dose: 800 mg Metoprolol Succinate (Toprol Xl Tab*) 50 mg PO DAILY [facility] Last Admin: 12/04/18 09:10 Dose: 50 mg Spironolactone (Aldactone Tab*) 25 mg PO DAILY [facility] Last Admin: 12/04/18 09:11 Dose: 25 mg Torsemide (Torsemide) 20 mg PO DAILY [facility] Last Admin: 12/04/18 09:10 Dose: 20 mg Objective Vital Signs: Temp Pulse Resp BP Pulse Ox 97.5 F 90 16 97/72 100 12/04/18 08:42 12/04/18 09:10 12/04/18 08:42 12/04/18 08:42 12/04/18 08:42 Oxygen Devices in Use Now: None Appearance: NAD Eyes: - Ears/Nose/Mouth/Throat: Mucous Membranes Moist Neck: - - + jvd Respiratory: - - crackles r base, otherwise clear Cardiovascular: - - RRR, soft apical murmur Abdominal: No Hepatosplenomegaly, - - mild distended, nontender Extremities: - - 1+ edema right leg, thighs and presacral Neurological: Alert and Oriented x 3 Lines/Tubes/Other Access: Clean, Dry and Intact [place], Clean, Dry and Intact Peripheral IV Laboratory Results: 12/03/18 05:06 12/04/18 04:30 INR (Anticoag Therapy) 1.91 (0.82-1.09) H 11/29/18 05:37 Total Bilirubin 1.10 mg/dL (0.2-1.0) H 12/04/18 04:30 Direct Bilirubin 0.40 mg/dL (0.03-0.18) H 12/04/18 04:30 Indirect Bilirubin 0.7 mg/dL (0.3-1.0) 12/04/18 04:30 AST 26 U/L (13-39) 12/04/18 04:30 ALT 16 U/L (7-52) 12/04/18 04:30 Alkaline Phosphatase 94 U/L (34-104) 12/04/18 04:30 B-Natriuretic Peptide > 1300 pg/mL (<=100) H 11/29/18 05:24 Total Protein 6.8 g/dL (6.4-8.9) 12/04/18 04:30 Albumin 3.0 g/dL (3.2-5.2) L 12/04/18 04:30 Globulin 3.8 g/dL (2-4) 12/04/18 04:30 Albumin/Globulin Ratio 0.8 (1-3) L 12/04/18 04:30 11/29/18 05:24 Troponin I 0.01 mg 1.8 Diagnostic Imaging: Exam Date: 12/02/181803 CT Chest Without Contrast COMPARISON: CTA CHEST CTA CHEST 09/28/2018 11:36 PM Lymph nodes: Normal. No enlarged lymph nodes. IMPRESSION: 1. Stable right pleural effusion and associated right lower lobe only loss. 2. Left ventricular failure. EKG Data: 11/29/2018; Sinus tachycardia rate 117, TW inversion Assessment/Plan 1. Acute on chronic severe systolic HF - LVEDD ~ 7 cm 2. 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 HF related iron deficient anemia - s/p 200 mg IV venofer x 2 4. Group II PH with RV failure 5. NSVT - Needs hgb, tsat, ferritin in 2 weeks. Would not discharge on oral iron. Can re-dose IV as an outpatient. - Continue lisinopril 10 mg po daily - Continue toprol, increase from 25 mg to 50 mg po daily (ordered) - Continue torsemide 20 mg po daily, give an extra 10 mg po x 1 now (ordered) - Continue spironolactone 25 mg po daily - s/p digoxin load, start 125 mcg po every other day, ordered, needs digoxin level 2 weeks, would keep level ~ 0.7 or less - IV magnesium replacement (ordered) - BMP 2 weeks - Patient was very clear and adamant that he would not want a primary prevention ICD - Would remove dickerson catheter, ambulate patient, If patient otherwise remains stable could be discharged from a cardiac standpoint later tomorrow (Wednesday) and follow up with Dr. Robledo for further evaluation and management. Thank you for allowing me to participate in the cardiovascular care of this patient. Please do not hesitate to contact me with questions or concerns
[2018-12-04] MEDS ORDERED: Torsemide TAB 10 MG PO ONE (10:43)
--- NOTE | 2018-12-04 15:06 | PN ---
Subjective Date of Service: 12/04/18 Interval History: Patient resting in bed. Reports he feels "good" today. Patient is happy about weight loss. Denies cp, sob, palpitations, abd pain, abd distention, fever, chills. Objective Active Medications: Acetaminophen (Tylenol Tab*) 650 mg PO Q6H PRN PRN Reason: PAIN Last Admin: 12/01/18 20:52 Dose: 650 mg Digoxin (Lanoxin Tab*) 0.125 mg PO EVERY OTHER DAY [facility] Last Admin: 12/04/18 09:10 Dose: 0.125 mg Docusate Sodium (Colace Cap*) 100 mg PO BID [facility] Last Admin: 12/04/18 09:22 Dose: Not Given Enoxaparin Sodium (Lovenox(*)) 40 mg SUBCUT Q24H [facility] Last Admin: 12/03/18 16:04 Dose: 40 mg Heparin Sodium (Porcine) (Heparin Flush Picc/Ml/Cvc(*)) 1 - 3 ml FLUSH 0600, 1800 [facility]; Protocol Last Admin: 12/04/18 04:31 Dose: 1 ml Lisinopril (Prinivil Tab*) 10 mg PO DAILY [facility] Last Admin: 12/04/18 09:11 Dose: 10 mg Magnesium Oxide (Magox 400 Tab*) 800 mg PO DAILY [facility] Last Admin: 12/04/18 09:11 Dose: 800 mg Metoprolol Succinate (Toprol Xl Tab*) 50 mg PO DAILY [facility] Last Admin: 12/04/18 09:10 Dose: 50 mg Spironolactone (Aldactone Tab*) 25 mg PO DAILY [facility] Last Admin: 12/04/18 09:11 Dose: 25 mg Torsemide (Torsemide) 20 mg PO DAILY [facility] Last Admin: 12/04/18 09:10 Dose: 20 mg Vital Signs - 8 hr 12/04/18 12/04/18 12/04/18 08:00 08:42 09:10 Temperature 97.5 F Pulse Rate 92 90 Respiratory 18 16 Rate Blood Pressure 97/72 (mmHg) O2 Sat by Pulse 100 Oximetry 12/04/18 12:42 Temperature 97.8 F Pulse Rate 91 Respiratory 16 Rate Blood Pressure 93/66 (mmHg) O2 Sat by Pulse 100 Oximetry Oxygen Devices in Use Now: None Appearance: Comfortable, NAD Eyes: No Scleral Icterus Ears/Nose/Mouth/Throat: Clear Oropharnyx, Mucous Membranes Moist Neck: NL Appearance and Movements; NL JVP Respiratory: Symmetrical Chest Expansion and Respiratory Effort, Clear to Auscultation Cardiovascular: NL Sounds; No Murmurs; No JVD, RRR, No Edema, - - + JVD Abdominal: - - Soft, nontender. Slightly distended. BS + Lymphatic: No Cervical Adenopathy Extremities: No Edema Skin: No Rash or Ulcers Neurological: Alert and Oriented x 3, NL Muscle Strength and Tone Nutrition: Taking PO's Result Diagrams: 12/03/18 05:06 12/04/18 04:30 Additional Lab and Data: Laboratory Results - last 24 hr 12/04/18 04:30 Sodium 138 Potassium 4.1 Chloride 101 Carbon Dioxide 33 H Anion Gap 4 BUN 27 H Creatinine 0.86 Est GFR ( Amer) 117.4 Est GFR (Non-Af Amer) 97.1 BUN/Creatinine Ratio 31.4 H Glucose 93 Calcium 8.9 Magnesium 1.8 L Total Bilirubin 1.10 H Direct Bilirubin 0.40 H Indirect Bilirubin 0.7 AST 26 ALT 16 Alkaline Phosphatase 94 Total Protein 6.8 Albumin 3.0 L Globulin 3.8 Albumin/Globulin Ratio 0.8 L Microbiology and Other Data: . Assess/Plan/Problems-Billing Assessment: 43 yom PMHx severe systolic HF, severe mitral regurgitation, moderate pulm HTN, iron deficiency anemia, h/o sickle trait who presents with CHF exacerbation. - Patient Problems (1) CHF exacerbation Comment: - + JVD. No edema - Diuresed well - Was on Lasix previously, but now on toresmide and aldactone per cardiology - Continue daily weights, I/O - Heart healthy diet- low salt, fluid restriction discontinued by Dr Mcgrath yesterday (2) Acute on chronic systolic (congestive) heart failure Comment: - Did have LifeVest, but was not wearing it when admitted. This will need to be readdress prior to discharge - Loaded on Digoxin by cardiology and PO digoxin started today for every other day. Will need dig level in 2 weeks - On diuretics, nargis, and beta cherie - Discussed cardiac cath which patient previously declined and he reports he declined as it did not work with his schedule - Had dickerson for strict I&O monitoring but it was removed today. Monitor for retention (3) Consolidation of right lower lobe of lung Comment: -CXR: persistent RLL consolidation with smal R pleural effusion progressed somewhat from September, -Denies cough, fever; without leukocytosis -Chest CT reports stable R pleural effusion -Will need to be followed up on outpatient (4) Electrolyte abnormality Comment: - Mag low this morning and had NSVT; replacement ordered by Cardiology -Continue to monitor and replete K, Mg - Will need repeat BMP in 2 weeks (5) Iron deficiency anemia Comment: - Pt denies symptoms; tachycardia intermittently - Previously received IV Venofer. Could receive again as outpatient if needed per cardiology - Per cardiology will need hgb, tsat, ferritin in 2 wks. Also recommends not discharging patient on oral iron (6) Increased bilirubin level Comment: - Likely secondary to hepatic congestion - Direct and indirect bili previously elevated, but trending down - Dr. Rosa consulting and paracentesis completed. Results pending (7) Full code status (8) DVT prophylaxis Comment: - SQ heparin Status and Disposition: Inpatient. Discharge when stable. Attending: Jamey Stein
[2018-12-04] MEDS: Enoxaparin(*) 40 MG/0.4 ML SYR SUBCUT SCH (17:50)
[2018-12-05 05:13] LABS: BUN/Creatinine Ratio 33.3 (8-20); Calcium 9.1 mg/dL (8.6-10.3); EGFR African American 131.4 (>60); EGFR Non-African American 108.6 (>60); Magnesium 1.9 mg/dL (1.9-2.7); Potassium 4.8 mmol/L (3.5-5.0)
--- NOTE | 2018-12-05 08:49 | PN ---
Subjective Date of Service: 12/05/18 Interval History: Patient reports he feels better stating his SOB is resolved. He still has scrotal edema which is uncomfortable but states it is improving. Denies any difficulty urinating. Denies orthopnea. Discharge plan was discussed - he states understanding. Recommended wearing Life Vest - patient states he does not want an ICD. Objective Active Medications: Acetaminophen (Tylenol Tab*) 650 mg PO Q6H PRN PRN Reason: PAIN Last Admin: 12/01/18 20:52 Dose: 650 mg Digoxin (Lanoxin Tab*) 0.125 mg PO EVERY OTHER DAY [facility] Last Admin: 12/04/18 09:10 Dose: 0.125 mg Docusate Sodium (Colace Cap*) 100 mg PO BID [facility] Last Admin: 12/04/18 20:20 Dose: Not Given Enoxaparin Sodium (Lovenox(*)) 40 mg SUBCUT Q24H [facility] Last Admin: 12/04/18 17:50 Dose: 40 mg Heparin Sodium (Porcine) (Heparin Flush Picc/Ml/Cvc(*)) 1 - 3 ml FLUSH 0600, 1800 [facility]; Protocol Last Admin: 12/05/18 04:26 Dose: 1 ml Lisinopril (Prinivil Tab*) 10 mg PO DAILY [facility] Last Admin: 12/04/18 09:11 Dose: 10 mg Magnesium Oxide (Magox 400 Tab*) 800 mg PO DAILY [facility] Last Admin: 12/04/18 09:11 Dose: 800 mg Metoprolol Succinate (Toprol Xl Tab*) 50 mg PO DAILY [facility] Last Admin: 12/04/18 09:10 Dose: 50 mg Spironolactone (Aldactone Tab*) 25 mg PO DAILY [facility] Last Admin: 12/04/18 09:11 Dose: 25 mg Torsemide (Torsemide) 20 mg PO DAILY [facility] Last Admin: 12/04/18 09:10 Dose: 20 mg Vital Signs - 8 hr 12/05/18 12/05/18 03:21 08:06 Temperature 98.4 F 97.6 F Pulse Rate 84 89 Respiratory 16 20 Rate Blood Pressure 94/71 (mmHg) O2 Sat by Pulse 100 100 Oximetry Oxygen Devices in Use Now: None Appearance: chronically ill male sitting up in bed A+O x3 in NAD Eyes: No Scleral Icterus, PERRLA Ears/Nose/Mouth/Throat: NL Teeth, Lips, Gums, Mucous Membranes Moist Neck: NL Appearance and Movements; NL JVP Respiratory: Symmetrical Chest Expansion and Respiratory Effort, Clear to Auscultation Cardiovascular: RRR, - - 1+ LE edema Abdominal: NL Sounds; No Tenderness; No Distention Extremities: No Clubbing, Cyanosis Neurological: Alert and Oriented x 3 Lines/Tubes/Other Access: Clean, Dry and Intact Peripheral IV Nutrition: Taking PO's Result Diagrams: 12/03/18 05:06 12/05/18 04:27 Additional Lab and Data: Laboratory Results - last 24 hr 12/04/18 04:30 Sodium 138 Potassium 4.1 Chloride 101 Carbon Dioxide 33 H Anion Gap 4 BUN 27 H Creatinine 0.86 Est GFR ( Amer) 117.4 Est GFR (Non-Af Amer) 97.1 BUN/Creatinine Ratio 31.4 H Glucose 93 Calcium 8.9 Magnesium 1.8 L Total Bilirubin 1.10 H Direct Bilirubin 0.40 H Indirect Bilirubin 0.7 AST 26 ALT 16 Alkaline Phosphatase 94 Total Protein 6.8 Albumin 3.0 L Globulin 3.8 Albumin/Globulin Ratio 0.8 L Microbiology and Other Data: . Assess/Plan/Problems-Billing Assessment: 43 yom PMHx severe systolic HF, severe mitral regurgitation, moderate pulm HTN, iron deficiency anemia, h/o sickle trait who presents with CHF exacerbation. - Patient Problems (1) Acute on chronic systolic (congestive) heart failure Comment: - Acute on chronic severe systolic HF with known EF<20% with severe MR - Diuresed well with oral torsemide > 6 L - tolerating well - Was on Lasix previously, but now on toresmide and aldactone per cardiology - Heart healthy diet- low salt, fluid restriction discontinued by cards - Cardiology following - ok to DC to home and f/u with Cards (apt 12/08 5375) - LifeVest at home - pt is noncompliant - he was recommended to wear it - Loaded on Digoxin by cardiology and PO digoxin started 12/04 for every other day. Will need dig level in 2 weeks - - On diuretics, nargis, and beta cherie - - Discussed cardiac cath which patient previously declined and he reports he declined as it did not work with his schedule - he will discuss with Dr. Robledo (2) Consolidation of right lower lobe of lung Comment: -CXR: persistent RLL consolidation with small R pleural effusion progressed somewhat from September, -Denies cough, fever; without leukocytosis -Chest CT reports stable R pleural effusion -Will need to be followed up on outpatient (3) Iron deficiency anemia Comment: - Pt denies symptoms - Previously received IV Venofer. Could receive again as outpatient if needed per cardiology - Per cardiology will need hgb, tsat, ferritin in 2 wks. Also recommends not discharging patient on oral iron (4) Increased bilirubin level Comment: - Likely secondary to hepatic congestion - Direct and indirect bili previously elevated, but trending down - Dr. Rosa consulting and paracentesis completed. Results No growth to date (5) Full code status (6) Electrolyte abnormality Comment: resolved (7) DVT prophylaxis Comment: - SQ heparin Status and Disposition: Inpatient. DC to home. Stable
[2018-12-05 09:00] VITALS: BP 92/46
[2018-12-05] MEDS: Torsemide TAB 10 MG PO SCH (10:03)
[2018-12-05] MEDS: Magnesium Oxide TAB* 400 MG PO SCH (10:03)
[2018-12-05] MEDS: Spironolactone TAB* 25 MG PO SCH (10:04)
[2018-12-05] MEDS: Metoprolol Succinate XL TAB* 50 MG PO SCH (10:04)
[2018-12-05] MEDS: Docusate CAP* 100 MG PO SCH (10:05)
[2018-12-05] MEDS: Lisinopril TAB* 5 MG PO SCH (10:09)
--- NOTE | 2018-12-05 21:07 | DS ---
CC: [facility] * DISCHARGE SUMMARY: DATE OF ADMISSION: 11/29/18 DATE OF DISCHARGE: 12/05/18 PROVIDER: Phuong Gleason NP. ATTENDING PHYSICIAN: Bubba Key MD * (report dictated by Phuong Gleason NP). PRIMARY CARE PROVIDER: [facility] (Jamey Stein MD; Veronika Pablo DO). OUTPATIENT CARDIOLOGISTS: Boris Robledo MD; Vianney Cain NP. DISCHARGE DIAGNOSES: 1. Acute on chronic systolic heart failure. 2. Electrolyte abnormalities. 3. Iron-deficiency anemia. 4. Right pleural effusion. 5. Ascites, status post paracentesis. 6. Noncompliance. SECONDARY DIAGNOSES: 1. History of pancreatitis. 2. Sickle cell trait. 3. Severe systolic congestive heart failure with an EF of 20% with severe mitral regurgitation. 4. Moderate pulmonary hypertension. 5. Elevated bilirubinemia thought to be secondary to hepatic congestion secondary to severe heart failure. 6. Iron-deficiency anemia. HISTORY OF PRESENT ILLNESS AND HOSPITAL COURSE: Please see history and physical by Dr. Stein for full admission details, but in summary, this is a 43- year-old male with a past medical history of severe systolic congestive heart failure with ejection fraction of approximately 20% with severe mitral regurgitation, moderate pulmonary hypertension, who presented to the emergency department on 11/29/18 with complaint of lower extremity edema and scrotal edema. Prior to being admitted, the patient recently had increased his diuretics to 20 mg twice a day. The patient had some medication changes and his Coreg was changed to metoprolol given his concerns for excessive fatigue. The patient did report prior to the week where he was not feeling well, he felt like he was doing well. He reported 11/26/18, he ate Gabonese style fried chicken , a broccoli dish, and then on 11/28/18, he ate half of an apple pie. The patient has been found in the past to be noncompliant with his medical treatment and it is complicated by his struggles with understanding and retaining information about his diagnosis and the desired treatment course for them. Please see Dr. Stein's admission note for further details prior to hospitalization. He was admitted to the hospital service for [id number] severe systolic congestive heart failure. On admission, he was found to have a right lower lobe with atelectasis and pleural effusion. He was diuresed well with oral torsemide, diuresing approximately 6 L. His lower extremity edema greatly improved as well as scrotal edema. Today on discharge, he still has some scrotal edema, but he states it is much better. Prior to hospitalization, he was on Lasix, but will be discharged on torsemide and Aldactone per Cardiology' s recommendations. In regards to the patient's right pleural effusion, the patient had no cough, fever, low suspicion that this was infectious. He was seen in consultation by chain carrier, Dr. Rosa, for hyperbilirubinemia and ascites and a paracentesis was performed, which was negative for malignancy. Please see Dr. Rosa's consultation note for full details. He reported there is no clear etiology defined due to his elevated bilirubin and stated if persistently elevated, he may need eventual biopsy. Given his severe cardiac issues and elevated INR, this may be better served in a tertiary center where they can do a transjugular approach. The primary care provider will need to follow up on this. He was seen in consultation by Cardiology, Vianney Cain NP, who follows the patient as an outpatient. Please see dictated note for full details. It is noted in the note that the patient is noncompliant with the LifeVest despite extensive counseling and is aware of sudden cardiac . I as well discussed with the patient who states understanding. The patient was started on digoxin, first dose 12/04/18. He was started on 125 mcg p.o. every other day and will need a digoxin level in [address] Mcgrath, lawn and garden technician, will be to keep the level 0.7 or less. I discussed the case with Dr. Mcgrath today and stated the patient is stable for discharge to home. Today on evaluation, the patient reports that his shortness of breath has resolved. He was noted to have some trace lower extremity edema and reports scrotal edema. He feels ready for discharge to home. In regards to the patient's iron-deficiency anemia, he did receive 200 mg IV Venofer x2. Dr. Mcgrath recommended not to discharge him on oral iron. He will need followup blood work in 2 weeks and could be set up for IV iron as an outpatient if needed. DISCHARGE MEDICATIONS: 1. Acetaminophen 650 mg p.o. q.4 hours p.r.n. 2. Potassium 10 mEq p.o. daily. 3. Magnesium oxide 800 mg p.o. daily. 4. Colace 100 mg p.o. b.i.d. 5. Torsemide 20 mg p.o. daily. 6. Spironolactone 25 mg p.o. daily. 7. Metoprolol succinate 50 mg p.o. daily. 8. Lisinopril 10 mg p.o. daily. 9. Digoxin 0.125 mg p.o. every other day. The next dose is due on 12/06/18. DISCHARGE PLAN: 1. The patient will be discharged to home. He has plans to follow up at social services aide after his discharge to get emergency housing in which he has been living in a hotel. 2. The patient's discharge plan was reviewed in detail with the patient and he states understanding. 3. Follow up with Vianney Cain NP on 12/08/18 at 2:45 p.m. 4. Follow up with Dr. Stein at [facility] on 12/14/18 at 1:20 p.m. 5. Followup blood work in 2 weeks; BMP, CBC, digoxin, ferritin, magnesium, transferrin, with results to PCP and Cardiology, Dr. Robledo and Vianney Cain NP. 6. Diet: Low-salt diet. The patient was educated at length about his diet. 7. The patient was encouraged to wear his LifeVest. 8. The patient is stable for discharge to home. TIME SPENT: Approximately 60 minutes was spent on this discharge. PHUONG GLEASON NP [id number]/[facility] #: [id number] SHIELA
--- NOTE | 2018-12-07 13:48 | OP ---
CC: [facility] OPERATIVE REPORT: DATE OF OPERATION: 12/02/18 DATE OF : 75 SURGEON: Lavern Gifford MD. DIRECTOR MEDICARE SALES: There was no assistant store leader for this case. PRE-OP DIAGNOSIS: Ascites. POST-OP DIAGNOSIS: Ascites. OPERATIVE PROCEDURE: Ascites drainage. INDICATIONS: Mr. Thurston is a 43-year-old male recently identified as having ascites, prompted the plan for surgical intervention. DESCRIPTION OF PROCEDURE: He was brought to the procedure room, underwent the procedure by having th e area prepped and draped and then infiltrated with local anesthetic. Using a paracentesis kit, need le was inserted into the skin after a small earline in the skin was made and advanced into the abdominal cavity. Catheter was advanced over the needle and the needle withdrawn. Approximately 500 cc of ye llow fluid was recovered, was sent for studies as ordered by Dr. Rosa. Once adequate fluid was re covered, the catheter was withdrawn and dry sterile dressing was placed with a little antibiotic oint ment over the earline in the skin. He tolerated the procedure well and was transferred back to his room in a stable condition. [id number]/[facility] #: [id number]
== END 2018-12-05 12:45 | disposition home or self-care (01) | DRG 194 ==
LOC: ED 04:21 → MEDTELE 06:15
PROVIDERS: ADMIT Internal Medicine; ATTEND Student in an Organized Health Care Education/Training Program
PROC: 0W9G3ZZ Drainage of Peritoneal Cavity, Percutaneous Approach (ICD-10-PCS; principal; 2018-12-02 09:00)
DX: I50.23 Acute on chronic systolic (congestive) heart failure (principal); R18.8 Other ascites; J98.11 Atelectasis; I42.0 Dilated cardiomyopathy; I47.1 Supraventricular tachycardia; D50.9 Iron deficiency anemia, unspecified; D57.3 Sickle-cell trait; R79.1 Abnormal coagulation profile; N50.89 Other specified disorders of the male genital organs; I45.81 Long QT syndrome; K76.1 Chronic passive congestion of liver; E80.7 Disorder of bilirubin metabolism, unspecified; R74.0 Nonspecific elevation of levels of transaminase and lactic acid dehydrogenase [LDH]; E87.6 Hypokalemia; I95.9 Hypotension, unspecified; I27.22 Pulmonary hypertension due to left heart disease; I50.810 Right heart failure, unspecified; E83.42 Hypomagnesemia; I08.1 Rheumatic disorders of both mitral and tricuspid valves; Z91.19 Patient's noncompliance with other medical treatment and regimen; Z87.891 Personal history of nicotine dependence; Z88.6 Allergy status to analgesic agent; Z88.8 Allergy status to other drugs, medicaments and biological substances; Z91.018 Allergy to other foods; Z84.89 Family history of other specified conditions
CPT/HCPCS: 36415; 49082; 71045; 71250; 80048; 80053; 80076; 82247; 82248; 82728; 83605; 83615; 83735; 83880; 84132; 84157; 84484; 85014; 85018; 85025; 85610; 87070; 87205; 88112; 89051; 93005; 99283; A9270-GY; J1160; J1650; J1756; J1940; J3475; J3480

== ENCOUNTER → 2018-12-26 09:44 | Day surgery (SDC) | payer OTHER ==
[~2018-12-26 09:44] MED LIST: Diazepam TAB(*) 5 MG ONE; Heparin 2 UNITS/ML IVPREMIX* 3,000 UNIT/1,500 ML BAG IV ONE; Heparin(*) 1000 UNIT/ML 10 ML VIAL CATH LAB IV ONE; Iohexol 350 (CONTRAST) 200 ML MDV IV ONE; Lidocaine 1% INJ* 10 MG/ML 30 ML SDV ONE; Midazolam* 1 MG/ML 5 ML VIAL (5 MG) ONE; NS 0.9% 1000 ML** 1,000 ML IV SCH; VERAPAMIL 2.5 MG/ML 2 ML VIAL ** 5 mg/2 ml ONE; diPHENhydraMINE PO* 25 MG ONE; fentaNYL* 50 MCG/ML 2 ML VIAL (100 MCG VIAL) ONE; nitroGLYCERIN DRIP* 25,000 MCG/250 ML BTL ONE
[2018-12-26 11:04] LABS: Hematocrit 34 % (42-52); Hemoglobin 10.7 g/dL (14.0-18.0); Mean Corpuscular HGB Conc 32 g/dL (31-36); Mean Corpuscular Hemoglobin 23 pg (27-31); Mean Corpuscular Volume 73 fL (80-94); Mean Platelet Volume 6.7 fL (7.4-10.4); Platelet Count 208 10^3/uL (150-450); Red Blood Count 4.63 10^6 /uL (4.18-5.48); Red Cell Distribution Width 23 % (10-15); White Blood Count 4.5 10^3/uL (3.5-10.8)
[2018-12-26 11:05] LABS: INR 1.2 (0.82-1.09)
[2018-12-26 11:34] LABS: ABS Eosinophils 0.1 10^3/ul (0-0.6); ABS Lymphocytes 1.4 10^3/ul (1.0-4.8); ABS Monocytes 0.7 10^3/ul (0-0.8); ABS Neutrophils 2.3 10^3/ul (1.5-7.7); Eosinophil % 1.2 %; Lymphocyte % 31.1 %; Nucleated Red Blood Cells % 0.1
[2018-12-26 11:46] LABS: Calcium 9.5 mg/dL (8.6-10.3); EGFR African American 177.9 (>60)
[2018-12-26 12:57] LABS: POC SO2 96 %
[2018-12-26 12:57] LABS: POC SO2 54 %
[2018-12-26 14:34] VITALS: BP 102/74
--- NOTE | 2018-12-26 20:41 | CATH ---
CARDIAC CATHETERIZATION REPORT: DATE OF PROCEDURE: 12/26/18 - [facility] CATH PROCEDURE: Right heart cath, coronary angiography. INDICATION: Cardiomyopathy, congestive heart failure. The patient is a 43-year-old gentleman who has been diagnosed with cardiomyopathy. He has been on maximal medical therapy. His ejection fraction is less than 25%. Cardiac catheterization was recommended to rule out significant coronary artery disease. DESCRIPTION OF PROCEDURE: The patient was brought to the catheterization lab in a fasting state. Informed consent had been obtained prior to the procedure. All labs had been reviewed. The patient was placed supine on the procedure table. His right antecubital vein was entered by a standard IV catheter. 1% lidocaine was used for local anesthesia. The standard IV was switched out for a 5-Portuguese sheath introducer. The patient underwent right heart catheterization using a balloon tip 5-Portuguese catheter. Multiple hemodynamics and oxygen saturation tracings were obtained. The radial artery was prepped and draped in usual fashion. 1% lidocaine was used for local anesthesia. The radial artery was entered by a Seldinger technique and a guidewire was placed. Over the guidewire, a 6-Portuguese sheath introducer was placed. The patient had an infusion of heparin, verapamil, and nitroglycerin through the sheath. The patient underwent coronary angiography using a 6-Portuguese TIG catheter. At the end of the procedure, all sheaths and catheters were removed. The patient tolerated the procedure well and no complications. A total of 70 cc of Omnipaque dye was used. A total of 4.2 minutes of fluoro time was used. FINDINGS: HEMODYNAMICS: Right atrial pressure of 17, right ventricular pressure 42/18 with an end-diastolic pressure of 18, pulmonary capillary wedge pressure of 34, pulmonary artery pressure 25/33 with a mean of 39, central aortic pressure 87/ 66 with a mean of 74, cardiac output by Celestine 3.8 mL/minute, cardiac output by thermodilution 4.9 L/minute; oxygen saturation, pulmonary artery saturation 54% , central aortic saturation 96%. CORONARY ARTERIES: 1. Left main: The left main was normal in size. It bifurcated into the LAD and circumflex. There was no evidence of stenosis. 2. Left anterior descending artery: The LAD was normal in size. It gave off 2 diagonal vessels. There was no evidence of stenosis. 3. Left circumflex artery: The circumflex artery was normal in size. It gave off 3 obtuse marginal branches. There was no evidence of stenosis. 4. Right coronary artery: The RCA was a large dominant vessel giving off the PDA and a posterolateral branch. There was no evidence of stenosis. IMPRESSION: 1. Mild pulmonary hypertension. 2. Normal cardiac output. 3. Normal coronary arteries. RECOMMENDATIONS: The patient will continue on maximal medical therapy for his severe cardiomyopathy. [id number]/[facility] #: [id number] SHIELA
== END | disposition home or self-care (01) ==
LOC: CHICATH 09:44
PROVIDERS: ATTEND Specialist
DX: I42.9 Cardiomyopathy, unspecified (principal); I27.20 Pulmonary hypertension, unspecified; I50.23 Acute on chronic systolic (congestive) heart failure; R94.39 Abnormal result of other cardiovascular function study; I08.1 Rheumatic disorders of both mitral and tricuspid valves; Z87.891 Personal history of nicotine dependence; D50.9 Iron deficiency anemia, unspecified; R00.0 Tachycardia, unspecified
CPT/HCPCS: 36415; 80048; 82803; 85025; 85060; 85610; 93456; 99156; 99157; A9270-GY; C1887; J1644; J2250; J3010